=== PATIENT | male | born 1955 | race Caucasian/White ===

== ENCOUNTER 2023-10-22 08:01 | Outpatient (OUT) | payer MEDICARE, OTHER, SELFPAY ==
--- NOTE | 2023-10-22 08:28 | XR_ITS ---
The [address] [address] Patient Name: RAFFI CARTAGENA MRN: [id number] date: 1955 Sex: M Assigned Patient Location: LAB Current Patient Location: LAB Accession/Order Number: [id number] Exam Date: 10/22/2023 08:30 Report Date: 10/22/2023 09:05 At the request of: NORY SUH Procedure: XR chest 2V EXAMINATION: XR chest 2V HISTORY: Febrile Illness Acute R50.9 COMPARISON: No relevant comparison available. FINDINGS: LUNGS: Underexpanded lungs suggestive COPD. Small area of mild haziness within right lung base. VASCULATURE: No increased pulmonary vasculature. PLEURA: No pneumothorax, effusion, or pleural thickening. CARDIAC: No cardiomegaly or cardiac silhouette abnormality. MEDIASTINUM: No visible mass or adenopathy. BONES: No fracture or visible bone lesion. OTHER: Negative. XR/XR chest 2V IMPRESSION: 1. Suspect trace amount of right basilar infiltrates. Electronically authenticated by: AUGUSTO MORRISON Date: 10/22/2023 09:05
[2023-10-22 08:54] LABS: Basophils Percent Auto 0.3 % (0.2-2.0); Eosinophils Percent Auto 0.1 % (0.9-7.0); Hematocrit 32.3 % (42.0-54.0); Immature Granulocytes Abs Auto 0.31 10^3/uL (0.00-0.03); Immature Granulocytes Pct Auto 2.3 % (0.0-0.5); Lymphocytes Absolute Auto 0.7 10^3/uL (1.2-3.8); Lymphocytes Percent Auto 5.5 % (20.5-60.0); Mean Corpuscular HGB Conc 34.1 g/dL (29.9-35.2); Mean Corpuscular Hemoglobin 31.4 pg (25.9-34.0); Mean Corpuscular Volume 92.3 fL (80.0-94.0); Mean Platelet Volume 10.5 fL (9.5-13.5); Monocytes Absolute Auto 0.8 10^3/uL (0.3-0.8); Monocytes Percent Auto 5.9 % (1.7-12.0); Neutrophils Absolute Auto 11.3 10^3/uL (1.4-6.5); Neutrophils Percent Auto 85.9 % (43.0-75.0); Platelet Count 168 10^3/uL (150-450); Red Cell Distribution Width 13.4 % (11.0-15.0); White Blood Count 13.2 10^3/uL (4.0-11.0)
[2023-10-22 09:03] LABS: Bilirubin Urine SMALL (NEGATIVE); Blood Urine MODERATE (NEGATIVE); Clarity Urine CLEAR (CLEAR); Color Urine DK. YELLOW (YELLOW); Glucose Urine UA NEGATIVE (NEGATIVE); Ketones Urine NEGATIVE (NEGATIVE); Leukocyte Esterase Urine TRACE (NEGATIVE); Nitrite Urine POSITIVE (NEGATIVE); Protein Urine 100 mg/dL (NEG/TRACE); Specific Gravity Urine >=1.030 (1.005-1.025); pH Urine 5.5 (5.0-9.0)
[2023-10-22 09:18] LABS: Anion Gap 11.9; BUN Creatinine Ratio 17.4; Calcium 8.8 mg/dL (8.5-10.1); Chloride 98 mmol/L (98-107); Estimated GFR (African America 57 (>=60); Estimated GFR (Non-African Ame 47 (>=60); Glucose 141 mg/dL (74-106); Potassium 3.9 mmol/L (3.5-5.1); Sodium 132 mmol/L (136-145)
== END 2023-10-22 08:02 | disposition home or self-care (01) ==
LOC: LAB 08:05
PROVIDERS: PCP Family Medicine; Visit Provider Family Medicine
DX: R50.9 Fever, unspecified (principal)
CPT/HCPCS: 36415; 71046; 80048; 81003; 85025; 87086; 87150; 87186

== ENCOUNTER 2023-11-16 11:11 | Outpatient (OUT) | payer MEDICARE, OTHER, SELFPAY ==
[2023-11-16 11:37] LABS: Basophils Absolute Auto 0.1 10^3/uL (0.0-0.1); Basophils Percent Auto 0.9 % (0.2-2.0); Eosinophils Absolute Auto 0.2 10^3/uL (0.0-0.7); Eosinophils Percent Auto 2.3 % (0.9-7.0); Hematocrit 40.6 % (42.0-54.0); Hemoglobin 13.2 g/dL (14.0-18.0); Immature Granulocytes Abs Auto 0.02 10^3/uL (0.00-0.03); Immature Granulocytes Pct Auto 0.3 % (0.0-0.5); Lymphocytes Percent Auto 30.9 % (20.5-60.0); Mean Corpuscular HGB Conc 32.5 g/dL (29.9-35.2); Mean Corpuscular Hemoglobin 30.7 pg (25.9-34.0); Mean Corpuscular Volume 94.4 fL (80.0-94.0); Mean Platelet Volume 9.3 fL (9.5-13.5); Monocytes Absolute Auto 0.5 10^3/uL (0.3-0.8); Monocytes Percent Auto 7.5 % (1.7-12.0); Neutrophils Absolute Auto 3.8 10^3/uL (1.4-6.5); Neutrophils Percent Auto 58.1 % (43.0-75.0); Platelet Count 261 10^3/uL (150-450); Red Cell Distribution Width 14.2 % (11.0-15.0); White Blood Count 6.6 10^3/uL (4.0-11.0)
[2023-11-16 12:01] LABS: Bilirubin Urine NEGATIVE (NEGATIVE); Blood Urine NEGATIVE (NEGATIVE); Clarity Urine CLEAR (CLEAR); Color Urine LT. YELLOW (YELLOW); Glucose Urine UA NEGATIVE (NEGATIVE); Ketones Urine NEGATIVE (NEGATIVE); Leukocyte Esterase Urine TRACE (NEGATIVE); Nitrite Urine NEGATIVE (NEGATIVE); Protein Urine NEGATIVE (NEG/TRACE); Specific Gravity Urine <=1.005 (1.005-1.025); Urobilinogen Urine 0.2 EU/dL (0.2-1.0)
[2023-11-16 12:46] LABS: Prostate Specific Antigen Scrn 5.75 ng/mL (<=4.00)
[2023-11-16 12:51] LABS: Alanine Aminotransferase 32 U/L (16-63); Albumin Globulin Ratio 0.6; Albumin Level 3.3 g/dL (3.4-5.0); Alkaline Phosphatase 98 U/L (46-116); Anion Gap 11.7; Aspartate Amino Transferase 22 U/L (15-37); BUN Creatinine Ratio 20.4; Bilirubin Total 0.8 mg/dL (0.2-1.0); Carbon Dioxide 27.7 mmol/L (21.0-32.0); Chloride 101 mmol/L (98-107); Estimated GFR (African America >60 (>=60); Estimated GFR (Non-African Ame >60 (>=60); Globulin 5.1 g/dL; Glucose 86 mg/dL (74-106); Potassium 4.4 mmol/L (3.5-5.1); Sodium 136 mmol/L (136-145); Thyroid Stimulating Hormone 4.543 uIU/mL (0.358-3.740); Total Protein 8.4 g/dL (6.4-8.2)
== END 2023-11-16 11:12 | disposition home or self-care (01) ==
LOC: LAB 11:12
PROVIDERS: PCP Family Medicine; Visit Provider Family Medicine
DX: D64.9 Anemia, unspecified (principal); R63.4 Abnormal weight loss; Z12.5 Encounter for screening for malignant neoplasm of prostate; E86.0 Dehydration; N39.0 Urinary tract infection, site not specified
CPT/HCPCS: 36415; 80053; 81003; 82607; 82728; 82746; 84443; 85025; G0103

== ENCOUNTER 2023-11-19 07:35 | Outpatient (OUT) | payer MEDICARE, OTHER, SELFPAY ==
--- OUTSIDE RECORDS SUMMARY | 2023-11-19 07:37 | XMS_ITS | CCD ---
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 Role Phone DR JAMESON MACIAS Admitting Unavailable MACIAS, DR MCKEON Attending Unavailable SUH, DR LISSETTE Camacho Primary Care Unavailable MACIAS, DR MCKEON Consulting Unavailable SUH, DR LISSETTE Camacho Admitting Unavailable [facility], DR LISSETTE Camacho Attending Unavailable SU[facility], DR LISSETTE Camacho Primary Care Unavailable SUH, DR LISSETTE Camacho Consulting Unavailable SUH, DR LISSETTE Camacho Admitting Unavailable SU[facility], DR LISSETTE Camacho Attending Unavailable SU[facility], DR LISSETTE Camacho Referring Unavailable SUH, DR LISSETTE Camacho Primary Care Unavailable GALLANT, DR EUGENIA Prado Consulting Unavailable SUH, DR LISSETTE Camacho Consulting Unavailable LISSETTE [facility] Primary Care Physician [phone] MD Lissette Suh Primary Care Provider MD Jameson Macias Attending Provider Lissette Suh Unavailable [facility] Unavailable Jameson MACIAS Attending Unavailable Jameson MACIAS Attending Unavailable Jameson MACIAS Attending Unavailable Jameson MACIAS Admitting Unavailable Jameson MACIAS Referring Unavailable Jameson MACIAS Attending Unavailable Allergies Allergy Classification Reported Allergen(s) Allergy Type Date of Onset Reaction(s) Facility (5 sources) patient allergy list reviewed by nurse or physicia Propensity to adverse reactions 3 Comment:Done [employer] Other (5 sources) Allergies Reconciled Propensity to adverse reactions Unknown [employer] Other Medications Current Medications Medication Drug Class(es) Dates Sig (Normalized) Sig (Original) acetaminophen 325 mg / HYDROcodone bitartrate 7.5 mg oral tablet (7 sources) Opioid Agonist Start: 11-19-2022 take 1 tablet by mouth once, then take 1 tablet by mouth every hour Dequincy 325 mg-7.5 mg oral tablet 1 tab(s), Oral, Once, 1 tab(s), Refill(s) 0, Take 1 hour prior to procedure. Don't drive or operate machinery while taking this medication. Have a feedmobile driver to and from procedure., [facility] #[id number], 175, cm, 05/01/22 10:32:00 EDT, Height/Length Dosing,... Start Date: 11/19/22 Status: Ordered Start: 04-08-2022 take 1 tablet by tatum th once, then take 1 tablet by mouth every hour Dequincy 325 mg-7.5 mg oral tablet 1 tab(s), Oral, Once, 1 tab(s), Refill(s) 0, Take 1 hour prior to procedure. Don't drive or operate machinery while taking., [facility] #[id number], 175, cm, 01/19/22 9:56:00 EDT, Height/Length Dosing, 55.5, kg, 01/19/22 9:56:00 EDT, Weight Dosing Start Date: 04/08/22 Status: Ordered take 1 tablet by tatum th every hour HYDROcodone-Acetaminophen 7.5-325 MG take 1 tablet by mouth 1 hour prior to procedure DO NOT DRIVE WHILE TAKING MEDICATION Oral for 1 Days Not-Taking acetic acid 20 mg/ml / hydrocortisone 10 mg/ml otic solution (1 source) Corticosteroid Start: 07-16-2023 Hydrocortisone-Acetic Acid 1-2 % 5 drops into affected ear left ear Three times a day for 7 days Jun, Active ciprofloxacin 500 mg oral tablet (10 sources) Quinolone Antimicrobial Start: 11-19-2022 End: 11-26-2022 Cipro 500 mg Tab 500 mg = 1 tab(s), Oral, q12hr, Start 3 days prior to procedure, X 7 day(s), # 14 tab(s), Refills(s) 0, Pharmacy: [facility][id number], 175, cm, 05/01/22 10:32:00 EDT, Height/Length Dosing, 55.5, kg, 05/01/22 10:32:00 EDT, Weight Dosing Start Date: 11/19/22 Stop Date: 11/26/22 Status: Ordered Start: 04-08-2022 End: 04-15-2022 Cipro 500 mg Tab 500 mg = 1 tab(s), Oral, q12hr, Start 3 days prior to procedure, X 7 day(s), # 14 tab(s), Refills(s) 0, Pharmacy: [facility] #[id number], 175, cm, 01/19/22 9:56:00 EDT, Height/Length Dosing, 55.5, kg, 01/19/22 9:56:00 EDT, Weight Dosing Start Date: 04/08/22 Stop Date: 04/15/22 Status: Ordered take 1 tablet by tatum th every twelve hours Ciprofloxacin HCl 250 MG 1 tablet Orally every 12 hrs for 5 days Active tadalafil 5 mg oral tablet (20 sources) Phosphodiesterase 5 Inhibitor Start: 01-19-2022 take 1 tablet by mouth once daily tadalafil 5 mg oral tablet 5 mg = 1 tab(s), Oral, Daily, # 90 tab(s), Refills(s) 3, Pharmacy: [facility] [facility], 175, cm, 01/19/22 9:56:00 EDT, Height/Length Dosing, 55.5, kg, 01/19/22 9:56:00 EDT, Weight Dosing Start Date: 01/19/22 Status: Ordered tamsulosin hydrochloride 0.4 mg oral capsule (8 sources) alpha-Adrenergic Traci Start: 12-22-2021 End: 11-18-2023 take 1 capsule by mouth once daily Flomax 0.4 mg Cap 0.4 mg = 1 cap(s), Oral, Daily, X 30 day(s), # 30 cap(s), Refills(s) 11, Pharmacy: [facility] #[id number], 172, cm, 11/23/22 10:42:00 EST, Height/Length Dosing, 55, kg, 11/23/22 10:42:00 EST, Weight Dosing Start Date: 11/23/22 Stop Date: 11/18/23 Status: Ordered Completed/Discontinued Medications Medication Drug Class(es) Dates Sig (Normalized) Sig (Original) sulfamethoxazole 800 mg / trimethoprim 160 mg oral tablet (4 sources) Dihydrofolate Reductase Inhibitor Antibacterial, Sulfonamide Antimicrobial Sulfamethoxazole- Trimethoprim 800-160 MG take 1 tablet by mouth twice a day for 3 WEEKS Oral for 21 Days Not-Taking Problems Active Problems Problem Classification Problem Date Documented Date Episodic/Chronic Cancer of prostate (2 sources) Carcinoma in situ of prostate; Translations: [Carcinoma in situ of prostate] Onset: 05-01-2022 Chronic Fever of unknown origin (1 source) Fever, unspecified Episodic Hyperplasia of prostate (20 sources) Benign prostatic hyperplasia without lower urinary tract symptoms; Translations: [Benign prostatic hypertrophy without outflow obstruction] Onset: 10-15-2015 Chronic Inflammatory conditions of male genital organs (6 sources) Prostatitis; Translations: [Inflammatory disease of prostate, unspecified] Onset: 01-19-2022 Episodic Miscellaneous mental health disorders (5 sources) Psychosexual dysfunction associated with inhibited sexual excitement; Translations: [Psychosexual dysfunction with inhibited sexual excitement] Onset: 02-19-2015 Chronic Other connective tissue disease (13 sources) Pain in right foot; Translations: [Pain in right foot] Episodic Other ear and sense organ disorders (1 source) Otitis externa in other diseases classified elsewhere, left ear Chronic Other ear and sense organ disorders (1 source) Impacted cerumen, bilateral Episodic Other ear and sense organ disorders (1 source) Impacted cerumen, right ear Episodic Other ear and sense organ disorders (1 source) Impacted cerumen, left ear Episodic Other male genital disorders (15 sources) Male erectile dysfunction, unspecified; Translations: [Erectile dysfunction] Onset: 01-19-2022 Chronic Other male genital disorders (2 sources) Prostatic intraepithelial neoplasia 05-01-2022 Episodic Other screening for suspected conditions (not mental disorders or infectious disease) (20 sources) Encounter for screening for malignant neoplasm of prostate; Translations: [Raised prostate specific antigen] Onset: 11-12-2021 Episodic Retinal detachments; defects; vascular occlusion; and retinopathy (5 sources) Degenerative disorder of macula ; Translations: [Unspecified macular degeneration] Onset: 06-03-2017 Chronic Spondylosis; intervertebral disc disorders; other back problems (18 sources) Degeneration of lumbosacral intervertebral disc; Translations: [Other intervertebral disc degeneration, lumbosacral region] Onset: 05-04-2019 Chronic Spondylosis; intervertebral disc disorders; other back problems (20 sources) Lumbar radiculopathy; Translations: [Radiculopathy, lumbar region] Onset: 09-05-2015 Episodic Substance-related disorders (9 sources) Smoker; Translations: [Nicotine dependence] Onset: 05-04-2019 12-22-2021 Chronic Comment on above: Added secondary to d ocumentation in Social History. Past or Other Problems Problem Classification Problem Date Documented Da te Episodic/Chronic Immunizations and screening for infectious disease (5 sources) Vaccination given; Translations: [Encounter for immunization] Onset: 07-23-2014 Episodic Other connective tissue disease (4 sources) Pain in right foot; Translations: [PAIN IN RIGHT FOOT] Onset: 05-28-2021 Episodic Other ear and sense organ disorders (5 sources) Impacted cerumen; Translations: [Impacted cerumen, unspecified ear] Onset: 07-10-2013 Episodic Other non-traumatic joint disorders (5 sources) Shoulder joint pain; Translations: [Pain in right shoulder] Onset: 01-28-2016 Episodic Other nutritional; endocrine; and metabolic disorders (5 sources) Body mass index less than 20; Translations: [Body mass index (BMI) 19.9 or less, adult] Onset: 05-04-2019 Episodic Other nutritional; endocrine; and metabolic disorders (5 sources) Underweight; Translations: [Underweight] Onset: 05-04-2019 Episodic Results Test Name Value Interpretation Reference Range Facility [facility] 0 10-28-2023 Intra[facility] Documents [id number] Normal [facility] Patient Educationon 12-19-19 23 Patient Education Urology Benign Prostatic Hyperplasia Benign prostatic hyperplasia (BPH) is an enlarged prostate gland that is caused by the normal aging process and not by cancer. The prostate is a walnut-sized gland that is involved in the production of semen. It is located in front of the rectum and below the bladder. The bladder stores urine and the urethra is the tube that carries the urine out of the body. The prostate may get bigger as a man gets older. An enlarged prostate can press on the urethra. This can make it harder to pass urine. The build-up of urine in the bladder can cause infection. Back pressure and infection may progress to bladder damage and kidney (renal) failure. What are the causes? This condition is part of a normal aging process. However, not all men develop problems from this condition. If the prostate enlarges away from the urethra, urine flow will not be blocked. If it enlarges toward the urethra and compresses it, there will be problems passing urine. What increases the risk? This condition is more likely to develop in men over the age of 50 years. What are the signs or symptoms? Symptoms of this condition include: ? Getting up often during the night to urinate. ? Needing to urinate frequently during the day. ? Difficulty starting urine flow. ? Decrease in size and strength of your urine stream. ? Leaking (dribbling) after urinating. ? Inability to pass urine. This needs immediate treatment. ? Inability to completely empty your bladder. ? Pain when you pass urine. This is more common if there is also an infection. ? Urinary tract infection (UTI). How is this diagnosed? This condition is diagnosed based on your medical history, a physical exam, and your symptoms. Tests will also be done, such as: ? A post-void bladder scan. This measures any amount of urine that may remain in your bladder after you finish urinating. ? A digital rectal exam. In a rectal exam, your health care provider checks your prostate by putting a lubricated, gloved finger into your rectum to feel the back of your prostate gland. This exam detects the size of your gland and any abnormal lumps or growths. ? An exam of your urine (urinalysis). ? A prostate specific antigen (PSA) screening. This is a blood test used to screen for prostate cancer. ? An ultrasound. This test uses sound waves to electronically produce a picture of your prostate gland. Your health care provider may refer you to a specialist in kidney and prostate diseases (urologist). How is this treated? Once symptoms begin, your health care provider will monitor your condition (active surveillance or watchful waiting). Treatment for this condition will depend on the severity of your condition. Treatment may include: ? Observation and yearly exams. This may be the only treatment needed if your condition and symptoms are mild. ? Medicines to relieve your symptoms, including: ? Medicines to shrink the prostate. ? Medicines to relax the muscle of the prostate. ? Surgery in severe cases. Surgery may include: ? Prostatectomy. In this procedure, the prostate tissue is removed completely through an open incision or with a laparoscope or robotics. ? Transurethral resection of the prostate (TURP). In this procedure, a tool is inserted through the opening at the tip of the penis (urethra). It is used to cut away tissue of the inner core of the prostate. The pieces are removed through the same opening of the penis. This removes the blockage. ? Transurethral incision (TUIP). In this procedure, small cuts are made in the prostate. This lessens the prostate's pressure on the urethra. ? Transurethral microwave thermotherapy (TUMT). This procedure uses microwaves to create heat. The heat destroys and removes a small amount of prostate tissue. ? Transurethral needle ablation (TUNA). This procedure uses radio frequencies to destroy and remove a small amount of prostate tissue. ? Interstitial laser coagulation (ILC). This procedure uses a laser to destroy and remove a small amount of prostate tissue. ? Transurethral electrovaporization (TUVP). This procedure uses electrodes to destroy and remove a small amount of prostate tissue. ? Prostatic urethral lift. This procedure inserts an implant to push the lobes of the prostate away from the urethra. Follow these instructions at home: ? Take avxl-iug-kdyuwak and prescription medicines only as told by your health care provider. ? Monitor your symptoms for any changes. Contact your health care provider with any changes. ? Avoid drinking large amounts of liquid before going to bed or out in public. ? Avoid or reduce how much caffeine or alcohol you drink. ? Give yourself time when you urinate. ? Keep all follow-up visits as told by your health care provider. This is important. Contact a health care provider if: ? You have unexplained back pain. ? Your symptoms do not get better with treatment. ? You d (more content not included)... Normal [facility] Urology Office/Clinic Noteon 12-18-2022 Urology Office/Clinic Note Chief Complaint S/P TRUS/Bx HPI Staff S/P TRUS/Bx done 12/01/22 due to PIN III. Pt is here today to review pathology report. *Restarted Flomax 0.4mg QD therapy at time of last encounter. (stopped due to running out) Also taking Tadalafil 5mg PRN therapy. Pt denies any complaints urinating at this time. History of Present Illness Tests reviewed: Reviewed pathology report. I have reviewed the previous health record information and history for this patient from Dr. Macias. I have reviewed and verified the staff HPI to be accurate for this encounter. There have been no associated fever, chills, flank pain, or blood in the urine. Denies any urinary infections since last encounter. Review of Systems PHQ Score Initial Depression Screen Score: 0 ROS - Provider Constitutional: denies weight loss, denies hot flashes. Eyes: denies eye problems. Gastrointestinal: denies nausea, denies vomiting. Cardiovascular: denies chest pain or angina. Integumentary: no dryness Musculoskeletal: denies musculoskeletal symptoms. ENMT: denies otolaryngeal symptoms. Respiratory: no shortness of breath. Heme/Lymph: denies easy bleeding tendency, denies easy bruising tendency. Psychiatric: no confusion, no anxiety. Genitourinary: denies dysuria, denies hematuria, denies discharge, denies urinary frequency, denies urinary hesitancy, denies nocturia, denies incontinence, denies genital sores, denies decreased libido, and denies erectile dysfunction. Physical Exam Vitals & Measurements HR: 68(Peripheral) RR: 16 BP: 128/74 HT: 68 in HT: 172 cm WT: 55 kg WT: 121 lb BMI: 18.59 General Appearance: alert, no distress, well nourished, well developed male. Genitourinary: normal scrotum, normal testes, normal urethra, normal epididymis, normal vas deferens/spermatic cord. Flank Pain: none. Bladder: nonpalpable. Assessment/Plan 1. 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 S/p TRUS/bx 04/14/22. Path report shows SIXTO in the right lateral base. S/p TRUS/bx 12/01/22. Pathology neg for malignancy. Patchy chronic inflammation left lateral apex and left mid. The pathology report was reviewed with the patient in detail today. There is no evidence of malignancy and no further evaluation of the tissue removed is planned. All questions were answered and the report discussed in terms that the patient could understand. -Follow up in 1 year w/ PSA. All questions/concerns were discussed. Pt. to call the office if heencounters any issues prior. Pt. acknowledges understanding. 2. BPH (benign prostatic hyperplasia) (N40.0: Benign prostatic hyperplasia without lower urinary tract symptoms) No urine sample provided today. Patient continues Tamsulosin 0.4mg daily. Voices no concerns with urination following biopsy. 3. ED (erectile dysfunction) (N52.9: Male erectile dysfunction, unspecified) Tadalafil 5 mg PRN. Call for refills when needed. Follow-up With When Contact Information LAKISHA HOUSTON, Jameson Kay, URL [address] [place], [place] [id number]- Additional Instructions: 1 year w/ PSA Patient Education Benign Prostatic Hyperplasia I, Isela Zaldivar, personally scribed for Dr. Macias on 12/18/2022 12:35:28. . Documentation recorded by the scribe, Isela Zaldivar, accurately reflects the services(s) I performed and decisions made by me. Authenticated by Dr. Macias on 12/18/2022 12:38:20. Problem List/Past Medical History Ongoing BPH (benign prostatic hyperplasia) ED (erectile dysfunction) Elevated PSA PIN III (prostatic intraepithelial neoplasia III) Prostatitis Smoker Historical No qualifying data Procedure/Surgical History Transrectal biopsy of prostate using ultrasound (US) guidance (12/01/2022), TRUS (transrectal ultrasound) guided cryoablation of prostate (04/14/2022), Bilateral inguinal hernia repair (07/10/2013), Colonoscopy (2011). Medications Flomax 0.4 mg Cap, 0.4 mg= 1 cap(s), Oral, Daily, 11 refills tadalafil 5 mg oral tablet, 5 mg= 1 tab(s), Oral, Daily, 3 refills Allergies No Known Allergies Social History Tobacco 10 or more cigarettes (1/2 pack or more)/day in last 30 days Tobacco Use:. Cigarettes, 12/18/2022 Family History Cancer: Mother and Brother. Heart disease: Mother, Father and Brother. Immunizations Vaccine Date Status SARS-CoV-2 (COVID-19) mRNA BNT-162b2 vax 09/09/2021 Recorded SARS-CoV-2 (COVID-19) mRNA BNT-162b2 vax 01/21/2021 Recorded SARS-CoV-2 (COVID-19) mRNA BNT-162b2 vax 12/31/2020 Recorded Normal [place] Comment on above: Result Comment: Elec tronically Signed By: Jameson MACIAS MD\.br\Date and Time Signed: 12/18/22 12:38 EDT\.br\Electronically Co-Signed By: Isela Zaldivar.br\Date and Time Co-Signed: 12/18/22 12:35 EDT Coding Summary.on 12-11-2022 Coding Summary. CD:[id number] Ww +PGhlYWQ+UR8SGMCxL15ck GYyjD9iV1BAFUeFMacoPUD MNGcIXzVnbyNoEG0kvHUvC XJu IC8+GF5hUHDqBggykWBwi0 Y9tBT2T71hdy9dHZcqdAA8 WVMfRyAscgmrz2dwiVi7RD cuNmluOyBt CKKptP90ETT7iR78Em54wT OkqKSng2bubEi3RmSsTXSk BON0dQkoQAzpf4JsMYLsA7 6rzUTkx1P7 DXNzdBfvqJUmYwYzmRG0vG 6gVSstxlrsj2hujfclUhz1 yp77xYKne2D0xWT6G5Scgr K7ROMmtFYa PennmFRJyQ5ljfrmw8ulbl jcPeDlEUIjYHl8ETv6ONTm dModMlQvED11ZWE4CXCvig XlH3BqXYNp uNteNuE3x1W0Hn2DM9JITz fmX5KPGHXIMCttjRM+PC90 es26Y6XdChhrPcn4XYCgFY I4tNG7nP6j GNBeBNjun2C5qFC9Z9Bxuo Wntu8bx4yjWOUvAJkwC70l ySTrq2F3QSZwyCJ1NBGlpG nvMuHyvW61 Oyc+IAXpyDcye1AlDhtal8 zyy3dllEl7IyohNUNghqPq bAjjXSW5y9PrOz2oFIOdoJ Y4wAZ5cH3w DbPyNrJ7KTtqB137TsOqfI DsPfleL85pP8KxjMN+PHRy Mcx9HRLxaDvfJP8mB8LlTB RpbmctbGVm iRoiKW8jHGGaiobjTGSwtH 4jPCSoK5l3GsFwQzX3UCht D7JxUXLdgniaVp42jS4iLp TuBeD9LWvb C6WgwxH2RDCfvKVoZZrhVB P7M40iu9Q1HKOtKTZbCOO6 aIO9yP5knBlsqeftcVHrmU sgdmVydGlj CBnqQBlnN879AWRwmBeyVf NvZGluZyBEYXRlOiAgMDMv MjQvMjAyMzwvdGQ+PHRkIH D4cMmmWPLf oZQxDAiwRw1syXrauRjqWL 9lJCRmecajEOKreK4jEAZd lBPipGotDC0mPQPbadcsy5 40YoCwROM4 GZSkcAZsW3JorC6dXkAhWP GvGIVcY5LxlMVwDUqqQ417 VKdbJlU1XJVcrgZnP9RiAZ FsaWduOiB0 c5U0Bv6Sz4FqohmiA2UkkB TnMiUfJpjdTLo5X4CcBgov dHI+BA95LSGjHX97SOu5XZ W3zKbgFViz WJQbP3LwzN2cMoNmNSMmLE RkOyc+PHRhYmxlIHdpZHRo REjsCEDcJpTfxOxxSD3wIb 9yZGVyLWNv uGgqpKIbCbSmj4frTXHqIT xnTI0ngLkfY1RfgCV9MQRh w1u8Rh09I95vW2KwgEL+PG NuvJA6hLG1 aZ1jInPdIpS1JVppD327Ur RobQJcTmume9dkr4atsEy1 RwL8SVWjxxPexWgcPXI7a5 OdIb37N09j IHdpZHRoPSIxNSUiIHZhbG myfs5dfD7jKc9+PGNvbCB3 vXH5kO9zSiByMkL4HAzwM9 49InRvcCIv Hrwll9qxp0imvZu7OiBvHE XnbaZtjGruFFP1v6UjIp18 T8PxyToxr5OhMqj0er42yL Zcn1F4zVB2 M6OlIATehvpzaJZrmItfFL 6wIICprsjsKKDvkU3cTMUa V3z9SvFoIyY6GFfxS8Neuc Y9XKQveXNx RODptRGRkY6hznchg8jedk sgHwVsHAOdYGc7VJn5HYRh hAwsZkLuASE9YkT6ZEB2kX OdcR3ngOly apldsU2fBcg+HZV4tWOphL FSBO7mUvguvAG+PHRkIHN0 bHpeHPxqYMOvrC7rPHApL3 y4PjAvZyF1 LRnoM1NaxeL6RKRhbHOlAA UmePPRlL7lsnarr7wfyksr DjUsNIPdXYz3IIz8JHWcmA duOiBsZWZ0 UeH8GXP4zIHcyX1peWyoir wyvW5yBdl+QmlydGggRGF0 NWg2F2HmIgx6EZVwjBdqPO 0ncGFkZGlu Li5xvAmobAcgFM8eVNJbxe fcl089BrJbg3ddASLtwRCt RKccAFR2M74uw0I6DDQlXS ZpDBM9lXP7 pE4umFigygfldYHuoLsmrx QzkUqaNBmnTIrdR667HMMa lOhtUmQzGFo7D0HwBkl4XV RkgFwaHG7y uYZqQKzeGm7elQffnEsuFO 5nSMRgsgndn846VcXct4ph DDUmcSInNPqnKWB5M60fi1 M2GRDvXVAf HYF9wSF5mX6maQqvbqfdsZ VmdDsgdmVydGljYWwtYWxp Z097MHZfaOscPiHcoJd3E7 ZsAur2PHMo zAzgIT0ccUArEQzfPs4pmK xfqUnqGF9xECUquzrjm501 LrMer0etDUQspOZfNQxrET O6W11oz8D2 AHBdBJHvMQE1wOD2iL0wjG lnbjogbGVmdDsgdmVydGlj WIseMUhoP603CEVdnXywAx BhdGllbnQg CVdbBUy9K7CaDyazyPO+PC 47BHQqYZ50qTEivAClz7hw wLj7NpZfEGJxLOJ4nFqaUU snr1KyLNLv Z00lnJNjg1K8JWXdhKtvkE TgSzMmpWW7zE7gWQkrcsjv c8dcjckvMheyo0swbz03bH 40L12hMEfu ZHRoPSIzMCUiIHZhbGlnbj 2eaA5rHf1+VMChdHC4uXF2 zU4sUXHvNhR8SHisY814Fy RvcCIvPjxj z6fzr6jnbHh6AaI0OOFavk HfuHosHHH2z1CpVp92N43t IHdpZHRoPSIyMCUiIHZhbG xmaf5moM0s Ii8+DHQkeZQ3xLO8hP4gUv TyUcV5MItxU809RjPayLDb ZfglT97pL6VkrWU+PHRyPj v5EMXxkLmc OD9uqWCqPWcsBc3gFDL6Rb BiEpPxJGirU3UcIKUnesvj ciujcFR1CCIzDSVcqJ01Zf 9udDogMTBw tJXWzS4bfuxqh4etncffUt BpJUXrCEj3MYx3MJVqeZlx LwLpIWH6DwG2HGV7kEYuxX 1hbGlnbjog jP5hU3ZsXUGmaucnPa95nL 9mYoEbOfG3JOwcTtz+V0VB FeQTARDUOJDTTF40WK42vT Scz2X1xVZ3 W2BoVAAjplqguxfsuEP9AE VnPJIzqG76jQMaCPnuQa1y q7I1e088GYWqGVBowS14My 9udDogMTBw sPPOkP5iinsex9fhnpoyAx TxLXWxJAi9BBn3VZIxbIhp GgCdLXX1EzD5ZJM7mEExnJ 1hbGlnbjog vF1cJay+SWrhEojrSSc4AU wvdGQ+JWMfEZW3uEqiTAnt HXYufL9bZHXwQ6s8YlAsRi T2MVzwD4Nq QVDuihssOj15pG7nBkBqJj J8UKxrC5EdyrC4YGQeyNNw QOyeNHE8S98ag4Q4EFHvHS EvYVD4kAY0 zJ1tpVvhsykpdIPujOgjii OgdLmuYTjgOCswZ557UPQz aGvlNqO1URxuXMArCR41IV 32yTGba4Q4 eGS0T7ZmCXIxyicvkqgbxK N6NBTkISQayJ93kEXkZWay Gs2hb8U6o644PGLxEIKoyY 98Rf1znZhv EGRmmWZAiO9jmogkz9rgno ssIbHcMCDfXBi4XDw8CFNi wRwoQuFhTGM2AcD8XCI6kH CfvU5ctJbl pbfjvU4kBcu+TWFsZTwvdG Q+UGZvPZC2uDqzJLrxNUAw mP3pKGZxD5t9UaVyAxF8UG svF2GcKHNh xasxAq99tZ1tXxJwDzL6ZE lgR5ZdiqJ4VXUbgWXkAGpy FMK3O97og2R0HMJdDYGyKD O8xLT1fH3k bGlnbjogbGVmdDsgdmVydG jtFFvnUTemZ023XPTgnZfs Qg69xKKadRbawzU2F6VqBl wvdHI+PC90 OXKmMX85mRGnbFIke1hmrD a1IxLdVTQmCHR2oXkpQFml q3GrMDZiP34rhOYrn4X3JZ NvbGxhcHNl SgJppVG7dH3oKUgpjonod6 zypndxOhwns7hrkw56lE22 V15kMFhqCSBdFXNqQAXwJD HyzRrudn5a eJ1hUg4+JIUxpWK8eQH5uN 6rBoJnHsB9TXayH859CaCc tJDzBumsp4zdm4msdEw4Ea IwJSIgdmFs wNxvYBJ7w7RcDa64T23vUB dpZHRoPSIyMCUiIHZhbGln uk1uyS7kZy2+NF1vx9ebby 79sD96kQM+ BRClHMC5mCrmTNagCNRpvJ 3pNInyItE1ZIJmNlVijG75 sWUhJJmiGj3ikVtzuTaiUV 4wNTBpbjtm m300VxSdp5gmPSQpeKIuRG quUIQ6E26iw0C1MGEmQKUr PWP3wIV1gU2wwLtstfxnpY VmdDsgdmVy zYoeAKfbAQvzF652XKMckB skHaOsqEFsJ8ubxlVSYM8s OjwvdGQ+VVUwMZY2iPafLS uoRORuyL6s WJSjS7j1WmRePaU6SSrjJ4 AbntY4ERWyyQVzJGJhcWFS eG8kfluom9akckgsOfUoWM WlDDo7YPg7 MVWuuPtjQpNzSZS4FvP9UN C7sILhzN7rwDmrgawfzK6v Oyc+RklOOjwvdGQ+PHRkIH J4sAqbAAbc DCGslN5dFXStI2e8EiLyFr Y3FHbxH6TgywC5WLZpnBUq ZJWbdAPJlB6tcxqks3hlgd ogIzAwMDAw NBz6RHh2QCVyzYfdDtXmGG V5JjA3CPS4jHGljL3qqBbo woafiN6cWek+TVJOOjwvdG Q+PHRkIHN0 xWozZLpbWTEltG0lTZLeV5 r4IsIcGyA0TKpoP6UafyY1 WUFhnSTqRFWjaSUJjD3xpc iiw6ftzzfz XxPbZYDhSGl2RCw6KRSgoA nnShHdSNW0EkP0MBY0ySMf lT7hcKdxpsfpfD2uChu+UG Y1QHC7UR09 LG79L1UhZcnqyLTaqCN+PH RhYmxlIHdpZHRoPScxMDAl StMskGtnBQ4zYw4vZKZnPD NvbGxhcHNl QqYut0ak (more content not included)... Normal [facility] Prostate [facility] ([facility]) on 12-10-2022 Prostate Histology Diagnosis Info Invalid Interpretation Code [facility] Comment on above: Result Comment: A:Pr ostate,Left Lateral Base:Needle Biopsy Interpretation - - Benign prostatic tissue. MicroScopic Description - B:Prostate,Left Lateral Mid:Needle Biopsy Interpretation - - Benign prostatic tissue. MicroScopic Description - C:Prostate,Left Lateral Anson:Needle Biopsy Interpretation - - Benign prostatic tissue with patchy chronic inflammation. MicroScopic Description - D:Prostate,Left Base:Needle Biopsy Interpretation - - Benign prostatic tissue. MicroScopic Description - E:Prostate,Left Mid:Needle Biopsy Interpretation - - Benign prostatic tissue with patchy chronic inflammation. MicroScopic Description - F:Prostate,Left Anson:Needle Biopsy Interpretation - - Benign prostatic tissue (see comment). MicroScopic Description - G:Prostate,Right Base:Needle Biopsy Interpretation - - Benign prostatic tissue. MicroScopic Description - H:Prostate,Right Mid:Needle Biopsy Interpretation - - Benign prostatic tissue. MicroScopic Description - I:Prostate,Right Anson:Needle Biopsy Interpretation - - Benign prostatic tissue (see comment). MicroScopic Description - J:Prostate,Right Lateral Base:Needle Biopsy Interpretation - - Benign prostatic tissue (see comment). MicroScopic Description - K:Prostate,Right Lateral Mid:Needle Biopsy Interpretation - - Benign prostatic tissue. MicroScopic Description - L:Prostate,Right Lateral Anson:Needle Biopsy Interpretation - - Benign prostatic tissue. MicroScopic Description - Gross Description Site ID:A color varghese-white fixative Formalin cores 1 units cm Site ID:B color varghese-white fixative Formalin cores 1 units cm Site ID:C color varghese-white fixative Formalin cores 1 units cm Site ID:D color varghese-white fixative Formalin cores 1 units cm Site ID:E color varghese-white fixative Formalin cores 1 units cm Site ID:F color varghese-white fixative Formalin cores 1 units cm Site ID:G color varghese-white fixative Formalin cores 2 units cm 1.9 ---> stringy Site ID:H color varghese-white fixative Formalin cores 1 units cm Site ID:I color varghese-white fixative Formalin cores 1 units cm Site ID:J color varghese-white fixative Formalin cores 3 units cm 0.7 ---> stringy Site ID:K color varghese-white fixative Formalin cores 1 units cm Site ID:L color varghese-white fixative Formalin cores 1 units cm F, I and J: Immunostain HMW cytokeratins /p63/ P504S (PIN4) reviewed, supporting the rendered diagnosis. Electronically signed by : on: 12/10/2022 15:47:17 Performed By: #### 1 [id number] ####[facility] [address] [place] [address] Consent for Procedure/Surger yon 12-01-2022 Consent for Procedure/Surgery [id number] 0CD:127 [facility] Consent for Treatmenton 11-18 Consent for Treatment [id number] 0CD:127 Normal [facility] IntraOperative Documentson 0 12-01-2022 IntraOperative Documents [id number] 0CD:127 Normal [facility] Main OR Intraoperative Recor don 12-01-2022 Main OR Intraoperative Record IntraOp Document Type FTURO Summary Primary Physician: Jameson MACIAS MD Finalized Date/Time: 12/01/22 09:13:32 Pt. Name: TIFFANIE MATHEW D.O.B./Sex: 1955 Male Med Rec #: [id number] Physician: Jameson MACIAS MD Financial #: [id number] Pt. Type: O Room/Bed: / Admit/Disch: 12/01/22 07:42:27 - Institution: Case Times FTURO Entry 1 Patient Times In Room 12/01/22 08:40:00 Out Room 12/01/22 09:05:00 Procedure Times Start 12/01/22 08:45:00 Stop 12/01/22 08:57:00 Anesthesia Times Last Modified By: Darien ARGUETA, MICHELLE, Cathy 12/01/22 09:00:50 Case Attendance FTURO Entry 1 Entry 2 Entry 3 Case Attendee LAKISHA HOUSTON, Jameson Ledezma RN, CNOR, Aranza Baeza Role Performed Surgeon - Primary Auto Body Service Mechanic - Primary Scrub - Primary Time In 12/01/22 08:40:00 12/01/22 08:40:00 12/01/22 08:40:00 Time Out 12/01/22 09:05:00 12/01/22 09:05:00 12/01/22 09:05:00 Procedure PROSTATE TRANSRECTAL PROSTATE TRANSRECTAL PROSTATE TRANSRECTAL ULTRASOUND WITH BIO(.) ULTRASOUND WITH BIO(.) ULTRASOUND WITH BIO(.) Comments Last Modified By: Darien ARGUETA, CNOR, Darien ARGUETA, NABILOR, Darien ARGUETA, NABILOR, Cathy 12/01/22 Cathy 12/01/22 Cathy 12/01/22 09:00:50 09:00:50 09:00:50 Surgical Procedures FTURO Entry 1 Procedure Description Procedure PROSTATE TRANSRECTAL Modifiers . ULTRASOUND WITH BIOPSY Surgeon Description PROSTATE TRANSRECTAL ULTRASOUND WITH BIOPSY Primary Procedure Yes Primary Surgeon Jameson MACIAS MD Start 12/01/22 08:45:00 Stop 12/01/22 08:57:00 Anesthesia Type Local Surgical Service Urology Wound Class 2 - Clean-Contaminated Last Modified By: Darien ARGUETA, NABILOR, Cathy 12/01/22 09:00:52 General Case Data FTURO Pre-Care Text: Classifies surgical wound, implements aseptic technique, initiates traffic control Entry 1 Case Information OR URO 1 FT Case Level None Wound Class 2 - Clean-Contaminated Specialty Urology Preop Diagnosis ELEVATED PSA AND SIXTO Postop Same As Preop Yes Postop Diagnosis ELEVATED PSA AND SIXTO Outcomes Met? Yes Last Modified By: MICHELLE Ledezma RN, Ruthann 12/01/22 07:55:17 Post-Care Text: The patient is free from signs and symptoms of infection EU IntraOp - FTURO Pre-Care Text: Implements protective measures prior to operative or invasive procedure, confirms identity before the operative or invasive procedure, verifies operative procedure, surgical site, and laterality Entry 1 EU Perioperative Protocols Procedure(s) PROSTATE TRANSRECTAL Patient Identity Birthday, ID Band ULTRASOUND WITH BIO(.) Verified (select at Check, Patient least 2): Participation Consents / H and P HandP, Surgery/Procedure Operative Site N/A Verified Consent Marking Verified Surgical Site Yes Laterality Verified n/a Verified Procedure Verified Yes Correct Patient Yes Position Verified Availability Equipment, Medication Time Out LAKISHA HOUSTON, Jameson Kay, Verified (If Participants MICHELLE Ledezma RN, Applicable) Aryan Morgan Jessica D Time Out Complete 12/01/22 08:43:00 Allergies Reviewed? Yes Allergies Reviewed Self/Patient With Body Position Lateral, right side up Prep Area none Prep Agents None Skin. Condition Unable to Visualize Additional Tissue Specimens Collected Vitals - EU Blood Pressure 121/78/ Pulse 82 bpm Respirations 16 br/min SPO2 EBL 0 IandO - EU Total Intake 0 mL Total Output 0 mL Outcomes Met? Yes Last Modified By: MICHELLE Ledezma RN, Ruthann 12/01/22 09:01:42 Post-Care Text: The patient is free from signs and symptoms of injury caused by extraneous objects Sign Out FTURO Entry 1 Before Patient Leaves OR Nurse verbally Yes Nurse verbally n/a confirms with the confirms with the team the name of team that the procedure(s) instrument, sponge, recorded and needle counts are correct (or N/A) Nurse verbally Yes Nurse verbally Yes confirms with the confirms with the team how the team whether there specimen is labeled are any equipment (including patient problems to be name), if applicable addressed Sign Out Complete 12/01/22 09:00:00 Last Modified By: MICHELLE Ledezma RN, Ruthann 12/01/22 09:01:01 Case Comments Finalized By: MICHELLE Ledezma RN, Ruthann Document Signatures Signed By: MICHELLE Ledezma RN, Ruthann 12/01/22 09:01 MICHELLE Ledezma RN, Ruthann 12/01/22 09:05 MICHELLE Ledezma RN, Ruthann 12/01/22 09:13 [facility] Main OR Preoperative Recordo n 12-01-2022 Main OR Preoperative Record Holding Area Document Type FTURO Summary Primary Physician: Jameson MACIAS MD Finalized Date/Time: 12/01/22 09:04:17 Pt. Name: TIFFANIE MATHEW Anne/Sex: 1955 Male Med Rec #: [id number] Physician: Jameson MACIAS MD Financial #: [id number] Pt. Type: O Room/Bed: / Admit/Disch: 12/01/22 07:42:27 - Institution: Case Times Holding FTURO Pre-Care Text: Verifies consent for planned procedure, identifies individual values and wishes concerning care, includes family members in perioperative teaching Secures patient's records' belongings, and valuables, maintains patient's dignity and privacy, and maintains patient confidentiality Entry 1 In Holding 12/01/22 07:52:00 Outcomes Met? Yes Last Modified By: Savannah Hollingsworth LPN 12/01/22 07:52:58 Post-Care Text: The patient participates in decisions affecting his or her perioperative plan of care The patient's right to privacy is maintained Surgery Checklist FTURO Entry 1 Patient Birthday, Patient Procedure History and Physical, Identification: Participation Verification: Surgical Consent, With Patient NPO after Midnight: No Personal Items clothes Comment: Limitations: na Complaints of Pain: No Pain Comment: na Skin Integrity Intact, Dunlap, Warm, & Dry Vitals - EU Blood Pressure 121/78 Pulse 82 bpm Respirations 16 br/min SPO2 99 % RN Reviewed Yes Last Modified By: MICHELLE Ledezma RN, Ruthann 12/01/22 08:52:45 General Comments: temp:36.6 Finalized By: MICHELLE Ledezma RN, Ruthann Document Signatures Signed By: MICHELLE Ledezma RN, Ruthann 12/01/22 08:52 Savannah Hollingsworth LPN 12/01/22 07:57 Savannah Hollingsworth LPN 12/01/22 07:57 MICHELLE Ledezma RN, Ruthann 12/01/22 09:04 [facility] Operative Reporton 3 Operative Report Patient: GELA MATHEW Age: 67 years Sex: Male : 1955 Associated Diagnoses: None Author: Jameson MACIAS MD Procedure Operative Information Details: Date/ Time: 12/01/2022 09:00:00. Pre-Op Dx: Elevated PSA - R97.20, History of SIXTO on last biopsy. Post-Op Dx: Same. Anesthesia Type: Local, Periprostatic Nerve Block. Procedure: Transrectal Ultrasound and Transrectal Ultrasound-Guided Biopsy of the Prostate. Complications: None. Risks/Benefits/Informe d Consent: Surgical risks, benefits, details of the procedure have been explained to the patient, Full informed consent has been obtained. Intraoperative Information Prepped: The patient was brought to the office suite, placed in the modified left lateral Storm position, The patient was draped appropriately, 80 mg Gentamicin IM injection administered. Procedure: Then 2% Xylocaine jelly was used for intrarectal anesthesia, After waiting several minutes, a well lubricated ultrasound probe was introduced per rectum, The prostate was carefully evaluated in the AP and Sagittal views. Volume: 30 CC. Specimens Removed: A total of 14 biopsies were taken. 2 extra biopsies were taken from the area of interest on the right lateral base. all of these samples were sent to pathology.. Devices Implanted: None. Postoperative Information Discharge: The patient tolerated the procedure well and was discharged home in satisfactory condition, The patient was instructed to (Finish antibiotics, Avoid strenuous activity, Go to the emergency room for gross bleeding, fever, or chills). Radiology Report Procedure: Transrectal Ultrasound of the Prostate, Transrectal US guided needle biopsy of the prostate. Narrative: Ultrasound probe is introduced and performed in the longitudinal and transverse plains, The gland measures (41 MM Length, 48 MM Width, 29 MM Depth, with a calculated volume of 30 CC), The prostatic capsule and seminal vesicles appear to be within normal limits, The peripheral zone demonstrates No abnormalities, Rest of the prostate demonstrates No abnormalities, These were sent to pathology for evaluation, 14 biopsies were obtained. Normal [facility] Comment on above: Result Comment: Elec tronically Signed By: Jameson MACIAS MD\.br\Date and Time Signed: 12/01/22 09:02 EDT Patient Educationon 12-02-19 Patient Education Custom Transrectal Ultrasound of the Prostate with US guided biopsy ? Even though there are no visible incisions, multiple prostate biopsies have been taken through the rectum and you need to follow some instructions to minimize the risks of bleeding. ? You may see some blood in your urine and stool for up to 1 week (and blood in the semen for several months) ? Diet -You may resume your normal diet, but you may want to avoid alcohol, carbonated drinks, caffeine, and spicy foods, which may increase the irritation from the surgery. -Drink plenty of water to keep the urine clear. ? Activity -You should limit any physical activity for about 48 hours -No heavy lifting or straining (10 pound limit) -No driving a car and limit long car rides for 2 days -No strenuous exercise -No sexual intercourse until this is discussed with your doctor ? Bowels -Try to keep your bowel movements soft to minimize straining to have a bowel movement. -You may use a stool softener or over the counter laxative if needed -Difficult bowel movement may lead to straining and bleeding from the prostate ? Medications -You may resume your home medications unless instructed otherwise -Hold aspirin, ibuprofen, Coumadin (warfarin) and other blood thinners for about two days or until there is no active bleeding unless otherwise instructed -Finish the antibiotic which you have already started ? Things to watch for which would require an Emergency Room visit or call 911: (this is not a complete list) -Persistent or heavy bleeding or blood clots from the rectum or in the urine -Inability to urinate -Fever over 101.5 degrees Fahrenheit, with or without chills -Severe drug reactions with itching, hives or rash -Tenderness or swelling of the calves, chest pain, or shortness of breath ? Please call the office to arrange for your post-operative appointment in 1-2 weeks [phone] or [phone] Normal [facility] Prostate Histology ([facility]) on 12-01-2022 PH Method of Extraction Needle Biopsy Normal [facility] Comment on above: Performed By: #### 1 [id number] ####[facility] [place] [address] PH Number of Jars 2 Invalid Interpretation Code [facility] Comment on above: Performed By: #### 1 [id number] ####[facility] [address] [place] [address] PH Specimen 1 L Apx Prostate Normal [facility] Comment on above: Performed By: #### 1 [id number] ####[facility] [address] [place] [address] PH Specimen 10 R Lat Bse Prost Normal [facility] Comment on above: Performed By: #### 1 [id number] ####[facility] [address] [place] [address] PH Specimen 11 R Mid Prostate Normal [facility] Comment on above: Performed By: #### 1 [id number] ####[facility] [address] [place] [address] PH Specimen 12 R Lat Mid Prost Normal [facility] Comment on above: Performed By: #### 1 [id number] ####[facility] [address] [place] [address] PH Specimen 2 L Base Prostate Normal [facility] Comment on above: Performed By: #### 1 [id number] ####[facility] [address] [place] [address] PH Specimen 3 L Lat Apx Prost Normal [facility] Comment on above: Performed By: #### 1 [id number] ####[facility] [address] [place] [address] PH Specimen 4 L Lat Bse Prost Normal [facility] Comment on above: Performed By: #### 1 [id number] ####[facility] [address] [place] [address] PH Specimen 5 L Lat Mid Prost Normal [facility] Comment on above: Performed By: #### 1 [id number] ####[facility] [address] [place] [address] PH Specimen 6 L Mid Prostate Normal [facility] Comment on above: Performed By: #### 1 [id number] ####[facility] [address] [place] [address] PH Specimen 7 R Apx Prostate Normal [facility] Comment on above: Performed By: #### 1 [id number] ####[facility] [address] [place] [address] PH Specimen 8 R Base Prostate Normal [facility] Comment on above: Performed By: #### 1 [id number] ####[facility] [address] [place] [address] PH Specimen 9 R Lat Apx Prost Normal [facility] Comment on above: Performed By: #### 1 [id number] ####[facility] [address] [place] [address] PH Type of Service Technical Only Normal [facility] Comment on above: Performed By: #### 1 [id number] ####[facility] [address] [place] [address] Ambulatory Visit Summaryon 0 11-23-2022 Ambulatory Visit Summary TIFFANIE MATHEW :1955 Visit Date:11/23/2022 Ambulatory Visit Instructions Your Diagnosis PIN III (prostatic intraepithelial neoplasia III) BPH (benign prostatic hyperplasia) ED (erectile dysfunction) Tests Performed Urnls Dip Stick Auto w/o Microscopy POC 16392 Your Care Team Attending Physician - Jameson MACIAS MD Primary Care Physician - LISSETTE SUH MD This Is Your Medications List tadalafil (tadalafil 5 mg oral tablet) tamsulosin (Flomax 0.4 mg Cap) Contact prescribing physician if questions or concerns acetaminophen-hydrocod one (Dequincy 325 mg-7.5 mg oral tablet) ciprofloxacin (Cipro 500 mg Tab) Procedures Performed TRUS (transrectal ultrasound) guided cryoablation of prostate (04/14/2022), Bilateral inguinal hernia repair (07/10/2013), Colonoscopy (2011). Discharge Vitals Heart Rate (Peripheral) 72 Blood Pressure 111/73 Height 172 cm Height 68 in Weight 55 kg Weight 121 lb BMI 18.59 What to do next Scheduled Follow-Up Appointments Wednesday 4:00 PM EST With: Where: [facility] Urology Surgical Services Wednesday 8:30 AM EDT With: Where: [facility] Urology Surgical Services Wednesday 11:00 AM EDT With: Jameson MACIAS MD Where: [facility] Luci Yee [facility] Patient Educationon 11-24-19 Patient Education Oncology Transrectal Ultrasound-Guided Prostate Biopsy, Care After This sheet gives you information about how to care for yourself after your procedure. Your health care provider may also give you more specific instructions. If you have problems or questions, contact your health care provider. What can I expect after the procedure? After the procedure, it is common to have: ? Pain and discomfort near your rectum, especially while sitting. ? Dunlap-colored urine due to small amounts of blood in your urine. ? A burning feeling while urinating. ? Blood in your stool (feces) or bleeding from your rectum. ? Blood in your semen. Follow these instructions at home: Medicines ? Take wfjk-ivb-kkjteam and prescription medicines only as told by your health care provider. ? If you were prescribed antibiotic medicine, take it as told by your health care provider. Do not stop taking the antibiotic even if you start to feel better. Activity ? Do not drive for 24 hours if you were given a medicine to help you relax (sedative) during your procedure. ? Return to your normal activities as told by your health care provider. Ask your health care provider what activities are safe for you. ? Ask your health care provider when it is okay for you to resume sexual activity. ? Do not lift anything that is heavier than 10 lb (4.5 kg), or the limit that you are told, until your health care provider says that it is safe. General instructions ? Drink enough water to keep your urine pale yellow. ? Watch your urine, stool, and semen for new or increased bleeding. ? Keep all follow-up visits as told by your health care provider. This is important. Contact a health care provider if: ? You have any of the following: ? Blood clots in your urine or stool. ? Blood in your urine more than 2 weeks after the procedure. ? Blood in your semen more than 2 months after the procedure. ? New or increased bleeding in your urine, stool, or semen. ? Severe pain in your abdomen. ? Your urine smells bad or unusual. ? You have trouble urinating. ? Your lower abdomen feels firm. ? You have problems getting an erection. ? You have nausea or you vomit. Get help right away if: ? You have a fever or chills. This could be a sign of infection. ? You have bright red urine. ? You have severe pain that does not get better with medicine. ? You cannot urinate. Summary ? After this procedure, it is common to have pain and discomfort around your rectum, especially while sitting. ? You may have blood in your urine and stool after the procedure. ? It is common to have blood in your semen for 1?2 months after this procedure. ? If you were prescribed antibiotic medicine, take it as told by your health care provider. Do not stop taking the antibiotic even if you start to feel better. ? Get help right away if you have a fever or chills. This could be a sign of infection. This information is not intended to replace advice given to you by your health care provider. Make sure you discuss any questions you have with your health care provider. Document Released: 02/28/2018 Document Revised: 12/27/2019 Document Reviewed: 02/28/2018 [employer] Patient Education ? 2019 [employer]. [facility] Urology Office/Clinic Noteon 11-23-2022 Urology Office/Clinic Note Chief Complaint Patient is here for 6 mth follow up PIN III Bx will be done 12-01-22 HPI Staff Patient here for 6 month follow up. Patient is scheduled for TRUS/bx on 12-01-22. Previous Dx:PIN III Patient states he feels good at this time. Dysuria: denies Incomplete bladder emptying: _ Hematuria: denies Nocturia: 1x Stream: strong History of Present Illness Tests reviewed: reviewed UA. I have reviewed the previous health record information and history for this patient from Dr. Macias. I have reviewed and verified the staff HPI to be accurate for this encounter. There have been no associated fever, chills, flank pain, or blood in the urine. Denies any urinary infections since last encounter. Review of Systems PHQ Score Initial Depression Screen Score: 0 ROS - Provider Constitutional: denies weight loss, denies hot flashes. Eyes: denies eye problems. Gastrointestinal: denies nausea, denies vomiting. Cardiovascular: denies chest pain or angina. Integumentary: no dryness Musculoskeletal: denies musculoskeletal symptoms. ENMT: denies otolaryngeal symptoms. Respiratory: no shortness of breath. Heme/Lymph: denies easy bleeding tendency, denies easy bruising tendency. Psychiatric: no confusion, no anxiety. Genitourinary: denies dysuria, denies hematuria, denies discharge, denies urinary frequency, denies urinary hesitancy, denies nocturia, denies incontinence, denies genital sores, denies decreased libido, and denies erectile dysfunction. Physical Exam Vitals & Measurements HR: 72(Peripheral) BP: 111/73 HT: 68 in HT: 172 cm WT: 55 kg WT: 121 lb BMI: 18.59 General Appearance: alert, no distress, well nourished, well developed male. Genitourinary: normal scrotum, normal testes, normal urethra, normal epididymis, normal vas deferens/spermatic cord. Flank Pain: none. Bladder: nonpalpable. Assessment/Plan 1. 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 S/p TRUS/bx 04/14/22. Path report shows SIXTO in the right lateral base. -Repeat TRUS/bx scheduled for 12/01/22. 2. BPH (benign prostatic hyperplasia) (N40.0: Benign prostatic hyperplasia without lower urinary tract symptoms) UA today negative for blood and infection. Pt stopped taking Tamsulosin 0.4 mg QD because he ran out. Refill sent to [facility]. Was taking in the morning. -restart Flomax 0.4 mg QD 3. ED (erectile dysfunction) (N52.9: Male erectile dysfunction, unspecified) Tadalafil 5 mg PRN. Not voicing any complaints. Does not need refill, to call. -cont med above Follow-up With When Contact Information LAKISHA HOUSTON, Jameson Kay, URL [facility] [address], [place] [address]- Additional Instructions: Repeat TRUS/bx scheduled for 12/01/22. Patient Education Transrectal Ultrasound-Guided Prostate Biopsy, Care After IPalmira, personally scribed for Dr. Macias on 11/23/2022 10:59:56. . Documentation recorded by the scribe, Palmira Mae, accurately reflects the services(s) I performed and decisions made by me. Authenticated by Dr. Macias on 11/23/2022 11:00:35. Problem List/Past Medical History Ongoing BPH (benign prostatic hyperplasia) ED (erectile dysfunction) Elevated PSA PIN III (prostatic intraepithelial neoplasia III) Prostatitis Smoker Historical No qualifying data Procedure/Surgical History TRUS (transrectal ultrasound) guided cryoablation of prostate (04/14/2022), Bilateral inguinal hernia repair (07/10/2013), Colonoscopy (2011). Medications Cipro 500 mg Tab, 500 mg= 1 tab(s), Oral, q12hr, Not taking Flomax 0.4 mg Cap, 0.4 mg= 1 cap(s), Oral, Daily, 11 refills Dequincy 325 mg-7.5 mg oral tablet, 1 tab(s), Oral, Once, Not taking tadalafil 5 mg oral tablet, 5 mg= 1 tab(s), Oral, Daily, 3 refills Allergies No Known Allergies Social History Tobacco 10 or more cigarettes (1/2 pack or more)/day in last 30 days Tobacco Use:. Cigarettes, 11/23/2022 Family History Cancer: Mother and Brother. Heart disease: Mother, Father and Brother. Immunizations Vaccine Date Status SARS-CoV-2 (COVID-19) mRNA BNT-162b2 vax 09/09/2021 Recorded SARS-CoV-2 (COVID-19) mRNA BNT-162b2 vax 01/21/2021 Recorded SARS-CoV-2 (COVID-19) mRNA BNT-162b2 vax 12/31/2020 Recorded Lab Results Ambulatory Point of Care Results Bilirubin Urine Dipstick: Negative (11/23/22 10:31:00) Blood Urine Dipstick: Trace-intact (11/23/22 10:31:00) Glucose Urine Dipstick: Negative (11/23/22 10:31:00) Ketones Urine Dipstick: Negative (11/23/22 10:31:00) Leukocytes Urine Dipstick: Negative (11/23/22 10:31:00) Nitrite Urine Dipstick: Negative (11/23/22 10:31:00) Protein Urine Dipstick: Negative (11/23/22 10:31:00) Specific [place] Urine Dipstick: <=1.005 (11/23/22 10:31:00) Urine Appearance Urine Dipstick: Clear ( (more content not included)... Normal [facility] Comment on above: Result Comment: Elec tronically Signed By: Jameson MACIAS MD\.br\Date and Time Signed: 11/23/22 11:00 EST\.br\Electronically Co-Signed By: Palmira Mae\.br\Date and Time Co-Signed: 11/23/22 11:00 EST Creatinine (Bld) [Mass/Vol]O rdered By: Jameson Macias on 02-10-2022 Creatinine [Mass/Vol] 1.1 mg/dL 0.6-1.[address] [facility] Comment on above: ER/ESD physician is notified/shown all ISTAT results. Critical values may be confirmed by laboratory testing if deemed necessary by ER attending doctor. ISTAT XRay CREon 02-10-2022 Creatinine [Mass/Vol] 1.1 mg/dL Normal 0.6-1.[address] [facility] Comment on above: Result Comment: ER/E SD physician is notified/shown all ISTAT results. Critical values may be confirmed by laboratory testing if deemed necessary by ER attending doctor. Performed By: #### I SCRE #### [address] Point of Care testing , ISTAT GFR ( > 60 Normal [facility] Comment on above: Result Comment: GFR estimated reference range: According to KDOQI guidelines, <60 ml/min/1.73m2 is sufficient to diagnose a patient with chronic kidney disease. PERFORMED BY: [place] [address] PATHOLOGIST [employer] SALVADOR GRAYSON M.D. Performed By: #### I SCRE #### [address] [place] [address] [facility] Point of Care testing , ISTAT GFR (Non- Am > 60 [facility] Comment on above: Performed By: #### I SCRE #### [facility] [address] [place] [address] Point of Care testing , MR prostate wo/w conon 02-10 MR prostate wo/w con [facility] Main [place] [address] [place] [address] MRI Report Signed Patient: Hans Mathew MR#: [id number] : 1955 Acct:[id number] Age/Sex: 66 / M ADM Date: 02/10/22 Loc: MR Room: Type: [facility] Attending Dr: Jameson Macias MD Ordering Provider: Jameson Macias MD Date of Service: 02/10/22 MR/MR prostate wo/w con: ELEVATED PSA Copies to: Jameson Macias MD EXAMINATION: MR prostate wo/w con HISTORY: Elevated PSA COMPARISON: NONE TECHNIQUE: Multiparametric imaging of the prostate gland was performed with IV contrast. FINDINGS: Prostate Dimensions: 4.2 x 3.3 x 4.3 cm Prostate Volume: 31 mL Peripheral Zone: Heterogenous in T2 signal suggestive of prior prostatitis. No focal T2 or ADC map abnormality is identified to suggest prostate malignancy. Central/Transitional Zone: BPH. Seminal Vesicles: Unremarkable Neurovascular bundles: Unremarkable Lymphadenopathy: No evidence of lymphadenopathy. Bladder: The bladder is unremarkable. Bowel: The visualized bowel is without acute abnormality. Peritoneal Cavity: No free fluid. Bones: Heterogenous bone marrow signal without focal lesion. MR/MR prostate wo/w con IMPRESSION: No MRI evidence of prostate malignancy. BPH changes. Impression dictated by: Alfredo Branham Jr., D.O.02/10/2022 9:34 AM Dictation Location: [facility]- Transcribed By: JASON 02/10/22933 Dictated By: Alfredo Branham Jr, 02/10/22925 Signed By: 02/10/22933 [facility] No Panel InformationOrdered By: Jameson Macias on 02-10-2022 POC Estimated GFR > 60 [facility] Comment on above: GFR estimated refere nce range: According to KDOQI guidelines, <60 ml/min/1.73m2 is sufficient to diagnose a patient with chronic kidney disease. POC Estimated GFR Non- Amer > 60 [facility] Vital Signs Date Time Vital Sign Value Performing Clinician Facility 07-16-2023 09:35-0400 Body height 170.18 cm [facility] Other [facility] Other 07-16-2023 09:35-0400 Body mass index (BMI) [Ratio] 18.73 kg/m2 [facility] Other [facility] Other 07-16-2023 09:35-0400 Body temperature 98 [degF] [facility] Other [facility] Other 07-16-2023 09:35-0400 Body weight 54.25 kg [facility] Other [facility] Other 07-16-2023 09:35-0400 Diastolic blood pressure 76 mm[Hg] [facility] Other [facility] Other 07-16-2023 09:35-0400 Respiratory rate 18 /min [facility] Other [facility] [facility] Other 07-16-2023 09:35-0400 SaO2% (BldA) [Mass fraction] 99 % [facility] Other [facility] Other 07-16-2023 09:35-0400 Systolic blood pressure 134 mm[Hg] [facility] Other [facility] [facility] Other 11-23-2022 10:37-0500 Blood Pressure Location Jameson MACIAS [facility] 11-23-2022 10:37-0500 Diastolic blood pressure 73 mm[Hg] Jameson MACIAS [facility] 11-23-2022 10:37-0500 Heart rate 72 /min Jameson MACIAS [facility] 11-23-2022 10:37-0500 Systolic blood pressure 111 mm[Hg] Jameson MACIAS [facility] 10-14-2022 10:45-0500 Body height 170.18 cm [facility] Other [facility] Other 10-14-2022 10:45-0500 Body mass index (BMI) [Ratio] 19.58 kg/m2 [facility] Other [facility] Other 10-14-2022 10:45-0500 Body temperature 98.2 [degF] [facility] Other [facility] Other 10-14-2022 10:45-0500 Body weight 56.7 kg [facility] Other [facility] Other 10-14-2022 10:45-0500 Diastolic blood pressure 87 mm[Hg] [facility] Other [facility] Other 10-14-2022 10:45-0500 Respiratory rate 18 /min [facility] Other [facility] Other 10-14-2022 10:45-0500 SaO2% (BldA) [Mass fraction] 97 % [facility] Other [facility] Other 10-14-2022 10:45-0500 Systolic blood pressure 140 mm[Hg] [facility] Other [facility] Other 10-09-2022 10:00-0500 Body height 167.64 cm Lissette Suh Other [facility] [facility] Other 10-09-2022 10:00-0500 Body mass index (BMI) [Ratio] 19.53 kg/m2 Lissette Suh Other [facility] Other 10-09-2022 10:00-0500 Body weight 54.89 kg Lissette Suh Other [facility] Other 10-09-2022 10:00-0500 Diastolic blood pressure 84 mm[Hg] Lissette Suh Other [facility] [facility] Other 10-09-2022 10:00-0500 SaO2% (BldA) [Mass fraction] 99 % Lissette Suh Other [facility] Other 10-09-2022 10:00-0500 Systolic blood pressure 122 mm[Hg] Lissette Suh Other [facility] [facility] Other 02-10-2022 06:44-0400 Body height 175.26 cm MD Lissette Suh Work Phone: [facility] 02-10-2022 06:44-0400 Body weight 55.33 kg MD Lissette Suh Work Phone: [facility] 01-19-2022 09:50-0400 Blood Pressure Location Jameson MACIAS [facility] 01-19-2022 09:50-0400 Diastolic blood pressure 73 mm[Hg] [facility] MACIAS [facility] 01-19-2022 09:50-0400 Heart rate 64 /min Jameson MACIAS [facility] 01-19-2022 09:50-0400 Respiratory rate 16 /min Jameson MACIAS [facility] 01-19-2022 09:50-0400 Systolic blood pressure 131 mm[Hg] Jameson MACIAS [facility] Encounters Encounter Date Encounter Type Care Provider Facility Start: 12-20-2023 ambulatory Jameson Gillettei ty:[facility] Start: 10-25-2023 End: 10-25-2023 ambulatory Lissette Suh Other [facility] [facility] Other Start: 10-25-2023 Telephone encounter Lissette Suh [facility] Start: 10-22-2023 End: 10-22-2023 ambulatory Lissette Suh Other [employer] Other Start: 10-22-2023 Telephone encounter Lissette Suh [facility] Start: 10-21-2023 (Televisit) Televisit Lissette Suh [facility] Start: 10-21-2023 End: 10-21-2023 ambulatory Lissette Suh Other [employer] [facility] Other Start: 07-16-2023 End: 07-16-2023 ambulatory [facility] Other [facility] Other Start: 07-16-2023 Office outpatient vi sit 15 minutes [facility] Start: 02-23-2023 End: 02-23-2023 ambulatory Lissette Suh Other [employer] Other Start: 02-23-2023 Telephone encounter Lissette Suh [facility] Start: 12-18-2022 End: 12-19-2022 ambulatory Jameson MACIAS Facility:[facility] [place] Start: 12-01-2022 End: 12-02-2022 ambulatory Jameson MACIAS Facility:[facility] Start: 11-23-2022 End: 11-24-2022 ambulatory Jameson MACIAS Facility:[facility] Start: 11-23-2022 End: 11-23-2022 Patient encounter procedure Jameson MACIAS [facility] Start: 10-14-2022 End: 10-14-2022 ambulatory [facility] Other [facility] [facility] Other Start: 10-14-2022 Office outpatient vi sit 15 minutes [facility] Start: 10-09-2022 End: 10-09-2022 ambulatory Lissette Suh Other [employer] Other Start: 10-09-2022 Office outpatient vi sit 15 minutes Lissette Suh [facility] Start: 05-01-2022 End: 05-01-2022 Patient encounter procedure Jameson MACIAS [facility] Start: 04-14-2022 End: 04-14-2022 Patient encounter procedure Jameson MACIAS [facility] Start: 02-10-2022 End: 02-10-2022 Patient encounter procedure MD Lissette Suh Work Phone: [facility] Start: 01-19-2022 End: 01-19-2022 Patient encounter procedure Jameson MACIAS [facility] Start: 01-12-2022 End: 01-13-[address] JAMESON MACIAS Facility:[facility] Start: 11-12-2021 End: 11-13-[address] LISSETTE SUH Facility:[facility] Start: 05-28-2021 End: 05-29-[address] LISSETTE SUH Facility:[facility] Procedures Date Procedure Procedure Detail Performing Clinician Start: 04-14-2022 Ultrasonography guid ed transrectal cryoablation of prostate Jameson MACIAS Start: 02-10-2022 MR prostate wo/w con MD Lissette Suh Work Phone: Start: 01-12-[address] JUSTIN MACIAS Comment on above: Performed By: #### P SAD #### [facility] [address] [place] [address] Dr. Edmond Gamble Start: 11-12-[address] JUSTIN MACIAS Comment on above: Performed By: #### P SASC #### [facility] [address] [place] [address] Dr. Edmond Gamble Start: 03-27-2016 Removal of suture [facility] Other Start: 10-04-2013 General examination of patient [facility] Other Start: 07-10-2013 Bilateral inguinal h ernia repair Jameson MACIAS Start: 09-20-2011 Colonoscopy Jameson SOTO Screening for malign ant neoplasm of prostate [facility] Other Immunizations Immunization Date Immunization Notes Care Provider Fa cility 09-09-2021 SARS-CoV-2 (COVID-19 ) mRNA BNT-162b2 vax Jameson MACIAS [facility] 01-21-2021 SARS-CoV-2 (COVID-19 ) mRNA BNT-162b2 imguel MACIAS [facility] 12-31-2020 SARS-CoV-2 (COVID-19 ) mRNA BNT-162b2 miguel MACIAS [facility] 07-02-2015 tetanus and diphther ia toxoids, adsorbed, preservative free, for adult use (5 Lf of tetanus toxoid and 2 Lf of diphtheria toxoid) [facility] Other [facility] Other 07-23-2014 tetanus and diphther ia toxoids, adsorbed, preservative free, for adult use (5 Lf of tetanus toxoid and 2 Lf of diphtheria toxoid) [facility] Other [facility] Other Payers Date Payer Category Payer Unknown [id number] [id number] 2020 Medicare [id number] 1959 Medicare [id number] 1959 Unknown [id number] 1955 Unknown [id number] 2.16.84 [id number] 1955 Unknown [id number] 2.16.84 [id number] 1955 Unknown [id number] 2.16.84 [id number] 1955 Unknown [id number] 2.16.8 [id number] 1955 Unknown [id number] 2.16.8 [id number] 1955 Unknown [id number] 2.16.8 [id number] 1955 Unknown [id number] 2.16.8 [id number] Medicare Medicare [id number] Self-pay Self Pay [id number] Unknown [place] [employer] [place] [id number] Social History Date Type Detail Facility Start: 12-22-2021 Tobacco smoking status Smoker (findi ng) [facility] Sex Assigned At Male [facility] [employer] Start: 1955 Sex Assigned At Male [facility] Start: 05-01-2022 End: 11-23-2022 Tobacco smoking status Heavy tobacco smoker (finding) [facility] [employer] Functional Status Date Assessment Result Facility 11-23-2022 Functional Status N/A [facility] 05-01-2022 Functional Status N/A [facility] Clinical Notes 05-28-2021 to 10-21-2023 Note Date & Type Note Facility 10-21-2023 Evaluation note Encounter Date Diagnosis Assessment Notes Oct, Febrile illness, acute (ICD-10 - R50.9) Discussed labs and chest x-ray as indicated for workup of fevers and chills. Differential includes pneumonia urinary tract infection prostatitis or other infectious etiology. Patient states he will go tomorrow for labs and chest x-ray. Patient agrees to go to ER if symptoms worsen in the meantime. [facility] [facility] Other 10-27-2023 Evaluation note* Encounter Date Diagnosis Assessment Notes Treatment Notes Treatment Clinical Notes Jun, Left ear impacted cerumen (ICD-10 - H61.22) Drink plenty fluids, get plenty of rest. Use eardrops as prescribed. Take Tylenol or Motrin for aches pains or fevers. Follow-up with your family physician for any further concerns. Jun, Otitis externa in other diseases classified elsewhere, left ear (ICD-10 - H62.42) [facility] [facility] Other 03-14-2023 Note [id number] 11-23-2022 Hospital Discharge instructions Patient Education 11/23/2022 10:53:28 Transrectal Ultrasound-Guided Prostate Biopsy, Care After Transrectal Ultrasound-Guided Prostate Biopsy, Care After This sheet gives you information about how to care for yourself after your procedure. Your health care provider may also give you more specific instructions. If you have problems or questions, contact your health care provider. What can I expect after the procedure? After the procedure, it is common to have: Pain and discomfort near your rectum, especially while sitting. Dunlap-colored urine due to small amounts of blood in your urine. A burning feeling while urinating. Blood in your stool (feces) or bleeding from your rectum. Blood in your semen. Follow these instructions at home: Medicines Take mich-qle-qxkkyvo and prescription medicines only as told by your health care provider. If you were prescribed antibiotic medicine, take it as told by your health care provider. Do not stop taking the antibiotic even if you start to feel better. Activity Do not drive for 24 hours if you were given a medicine to help you relax (sedative) during your procedure. Return to your normal activities as told by your health care provider. Ask your health care provider what activities are safe for you. Ask your health care provider when it is okay for you to resume sexual activity. Do not lift anything that is heavier than 10 lb (4.5 kg), or the limit that you are told, until your health care provider says that it is safe. General instructions Drink enough water to keep your urine pale yellow. Watch your urine, stool, and semen for new or increased bleeding. Keep all follow-up visits as told by your health care provider. This is important. Contact a health care provider if: You have any of the following: ?Blood clots in your urine or stool. ?Blood in your urine more than 2 weeks after the procedure. ?Blood in your semen more than 2 months after the procedure. ?New or increased bleeding in your urine, stool, or semen. ?Severe pain in your abdomen. Your urine smells bad or unusual. You have trouble urinating. Your lower abdomen feels firm. You have problems getting an erection. You have nausea or you vomit. Get help right away if: You have a fever or chills. This could be a sign of infection. You have bright red urine. You have severe pain that does not get better with medicine. You cannot urinate. Summary After this procedure, it is common to have pain and discomfort around your rectum, especially whilesitting. You may have blood in your urine and stool after the procedure. It is common to have blood in your semen for 1 2 months after this procedure. If you were prescribed antibiotic medicine, take it as told by your health care provider. Do not stop taking the antibiotic even if you start to feel better. Get help right away if you have a fever or chills. This could be a sign of infection. This information is not intended to replace advice given to you by your health care provider. Make sure you discuss any questions you have with your health care provider. Document Released: 02/28/2018 Document Revised: 12/27/2019 Document Reviewed: 02/28/2018 [employer] Patient Education 2020 [employer]. Follow Up Care 01/19/2022 10:17:27 With:LAKISHA HOUSTON, Jameson Kay, URL Address: [facility] [address], [place] [address]- When: Unknown [facility] 01-25-2023 Evaluation note* Encounter Date Diagnosis Assessment Notes Treatment Notes Treatment Clinical Notes Sep, Impacted cerumen, right ear (ICD-10 - H61.21) Cerumen impaction home care material was printed Use the Debrox eardrops twice a day for 5 days. Return to the urgent care on Wednesday to have your ear irrigated. [facility] Other 01-20-2023 Evaluation note* Encounter Date Diagnosis Assessment Notes Treatment Notes Treatment Clinical Notes Sep, Bilateral impacted cerumen (ICD-10 - H61.23) Advised to use Debrox for 1 week and then return for ear lavage. His cerumen is very hard and immobile. [facility] [facility] Other 08-12-2022 Hospital Discharge instructions Patient Education 05/01/2022 11:24:14 Benign Prostatic Hyperplasia Benign Prostatic Hyperplasia Benign prostatic hyperplasia (BPH) is an enlarged prostate gland that is caused by the normal agingprocess and not by cancer. The prostate is a walnut-sized gland that is involved in the production of semen. It is located in front of the rectum and below the bladder. The bladder stores urine and the urethra is the tube that carries the urine out of the body. The prostate may get bigger as a man gets older. An enlarged prostate can press on the urethra. This can make it harder to pass urine. The build-up of urine in the bladder can cause infection. Back pressure and infection may progress to bladder damage and kidney (renal) failure. What are the causes? This condition is part of a normal aging process. However, not all men develop problems from this condition. If the prostate enlarges away from the urethra, urine flow will not be blocked. If it enlarges toward the urethra and compresses it, there will be problems passing urine. What increases the risk? This condition is more likely to develop in men over the age of 50 years. What are the signs or symptoms? Symptoms of this condition include: Getting up often during the night to urinate. Needing to urinate frequently during the day. Difficulty starting urine flow. Decrease in size and strength of your urine stream. Leaking (dribbling) after urinating. Inability to pass urine. This needs immediate treatment. Inability to completely empty your bladder. Pain when you pass urine. This is more common if there is also an infection. Urinary tract infection (UTI). How is this diagnosed? This condition is diagnosed based on your medical history, a physical exam, and your symptoms. Tests will also be done, such as: A post-void bladder scan. This measures any amount of urine that may remain in your bladder after you finish urinating. A digital rectal exam. In a rectal exam, your health care provider checks your prostate by putting a lubricated, gloved finger into your rectum to feel the back of your prostate gland. This exam detects the size of your gland and any abnormal lumps or growths. An exam of your urine (urinalysis). A prostate specific antigen (PSA) screening. This is a blood test used to screen for prostate cancer. An ultrasound. This test uses sound waves to electronically produce a picture of your prostate gland. Your health care provider may refer you to a specialist in kidney and prostate diseases (urologist). How is this treated? Once symptoms begin, your health care provider will monitor your condition (active surveillance or watchful waiting). Treatment for this condition will depend on the severity of your condition. Treatment may include: Observation and yearly exams. This may be the only treatment needed if your condition and symptoms are mild. Medicines to relieve your symptoms, including: ?Medicines to shrink the prostate. ?Medicines to relax the muscle of the prostate. Surgery in severe cases. Surgery may include: ?Prostatectomy. In this procedure, the prostate tissue is removed completely through an open incision or with a laparoscope or robotics. ?Transurethral resection of the prostate (TURP). In this procedure, a tool is inserted through the opening at the tip of the penis (urethra). It is used to cut away tissue of the inner core of the prostate. The pieces are removed through the same opening of the penis. This removes the blockage. ?Transurethral incision (TUIP). In this procedure, small cuts are made in the prostate. This lessens the prostate's pressure on the urethra. ?Transurethral microwave thermotherapy (TUMT). This procedure uses microwaves to create heat. The heat destroys and removes a small amount of prostate tissue. ?Transurethral needle ablation (TUNA). This procedure uses radio frequencies to destroy and remove a small amount of prostate tissue. ?Interstitial laser coagulation (ILC). This procedure uses a laser to destroy and remove a small amount of prostate tissue. ?Transurethral electrovaporization (TUVP). This procedure uses electrodes to destroy and remove a small amount of prostate tissue. ?Prostatic urethral lift. This procedure inserts an implant to push the lobes of the prostate away from the urethra. Follow these instructions at home: Take iiam-ebh-yomahbs and prescription medicines only as told by your health care provider. Monitor your symptoms for any changes. Contact your health care provider with any changes. Avoid drinking large amounts of liquid before going to bed or out in public. Avoid or reduce how much caffeine or alcohol you drink. Give yourself time when you urinate. Keep all follow-up visits as told by your health care provider. This is important. Contact a health care provider if: You have unexplained back pain. Your symptoms do not get better with treatment. You develop side effects from the medicine you are taking. Your urine becomes very dark or has a bad smell. Your lower abdomen becomes distended and you have trouble passing your urine. Get help right away if: You have a fever or chills. You suddenly cannot urinate. You feel lightheaded, or very dizzy, or you faint. There are large amounts of blood or clots in the urine. Your urinary problems become hard to manage. You develop moderate to severe low back or flank pain. The flank is the side of your body between the ribs and the hip. These symptoms may represent a serious problem that is an emergency. Do not wait to see if the symptoms will go away. Get medical help right away. Call your local emergency services (911 in the [place] Do not drive yourself to the hospital. Summary Benign prostatic hyperplasia (BPH) is an enlarged prostate that is caused by the normal aging process and not by cancer. An enlarged prostate can press on the urethra. This can make it hard to pass urine. This condition is part of a normal aging process and is more likely to develop in men over the age of 50 years. Get help right away if you suddenly cannot urinate. This information is not intended to replace advice given to you by your health care provider. Make sure you discuss any questions you have with your health care provider. Document Released: 09/06/2006 Document Revised: 08/01/2019 Document Reviewed: 10/11/2017 [employer] Patient Education 2020 [employer]. Follow Up Care 04/08/2022 15:13:56 With:LAKISHA HOUSTON, Jameson Kay, URL Address: [address] [place] [address]- When: Unknown [facility] 07-26-2022 Hospital Discharge instructions Patient Education 04/14/2022 15:08:03 [facility] - Transrectal Ultrasound of the Prostate with US guided biopsy Discharge Instructions (CUSTOM) Transrectal Ultrasound of the Prostate with US guided biopsy Even though there are no visible incisions, multiple prostate biopsies have been taken through the rectum and you need to follow some instructions to minimize the risks of bleeding. You may see some blood in your urine and stool for up to 1 week (and blood in the semen for severalmonths) Diet -You may resume your normal diet, but you may want to avoid alcohol, carbonated drinks, caffeine, and spicy foods, which may increase the irritation from the surgery. -Drink plenty of water to keep the urine clear. Activity -You should limit any physical activity for about 48 hours -No heavy lifting or straining (10 pound limit) -No driving a car and limit long car rides for 2 days -No strenuous exercise -No sexual intercourse until this is discussed with your doctor Bowels -Try to keep your bowel movements soft to minimize straining to have a bowel movement. -You may use a stool softener or over the counter laxative if needed -Difficult bowel movement may lead to straining and bleeding from the prostate Medications -You may resume your home medications unless instructed otherwise -Hold aspirin, ibuprofen, Coumadin (warfarin) and other blood thinners for about two days or until there is no active bleeding unless otherwise instructed -Finish the antibiotic which you have already started Things to watch for which would require an Emergency Room visit or call 911: (this is not a complete list) -Persistent or heavy bleeding or blood clots from the rectum or in the urine -Inability to urinate -Fever over 101.5 degrees Fahrenheit, with or without chills -Severe drug reactions with itching, hives or rash -Tenderness or swelling of the calves, chest pain, or shortness of breath Please call the office to arrange for your post-operative appointment in 1-2 weeks [phone] or [phone] Follow Up Care 04/08/2022 13:41:21 With:Jameson MACIAS Address: [facility] [address] [place] [address]- Business (1) When: Unknown Comments:Keep scheduled appointment [facility]05-02-2022 Hospital Discharge instructions Patient Education 01/19/2022 08:16:13 Erectile Dysfunction Erectile Dysfunction Erectile dysfunction (ED) is the inability to get or keep an erection in order to have sexual intercourse. Erectile dysfunction may include: Inability to get an erection. Lack of enough hardness of the erection to allow penetration. Loss of the erection before sex is finished. What are the causes? This condition may be caused by: Certain medicines, such as: ?Pain relievers. ?Antihistamines. ?Antidepressants. ?Blood pressure medicines. ?Water pills (diuretics). ?Ulcer medicines. ?Muscle relaxants. ?Drugs. Excessive drinking. Psychological causes, such as: ?Anxiety. ?Depression. ?Sadness. ?Exhaustion. ?Performance fear. ?Stress. Physical causes, such as: ?Artery problems. This may include diabetes, smoking, liver disease, or atherosclerosis. ?High blood pressure. ?Hormonal problems, such as low testosterone. ?Obesity. ?Nerve problems. This may include back or pelvic injuries, diabetes mellitus, multiple sclerosis, or Parkinson disease. What are the signs or symptoms? Symptoms of this condition include: Inability to get an erection. Lack of enough hardness of the erection to allow penetration. Loss of the erection before sex is finished. Normal erections at some times, but with frequent unsatisfactory episodes. Low sexual satisfaction in either partner due to erection problems. A curved penis occurring with erection. The curve may cause pain or the penis may be too curved to allow for intercourse. Never having nighttime erections. How is this diagnosed? This condition is often diagnosed by: Performing a physical exam to find other diseases or specific problems with the penis. Asking you detailed questions about the problem. Performing blood tests to check for diabetes mellitus or to measure hormone levels. Performing other tests to check for underlying health conditions. Performing an ultrasound exam to check for scarring. Performing a test to check blood flow to the penis. Doing a sleep study at home to measure nighttime erections. How is this treated? This condition may be treated by: Medicine taken by mouth to help you achieve an erection (oral medicine). Hormone replacement therapy to replace low testosterone levels. Medicine that is injected into the penis. Your health care provider may instruct you how to give yourself these injections at home. Vacuum pump. This is a pump with a ring on it. The pump and ring are placed on the penis and used to create pressure that helps the penis become erect. Penile implant surgery. In this procedure, you may receive: ?An inflatable implant. This consists of cylinders, a pump, and a reservoir. The cylinders can be inflated with a fluid that helps to create an erection, and they can be deflated after intercourse. ?A semi-rigid implant. This consists of two silicone rubber rods. The rods provide some rigidity. They are also flexible, so the penis can both curve downward in its normal position and become straight for sexual intercourse. Blood vessel surgery, to improve blood flow to the penis. During this procedure, a blood vessel from a different part of the body is placed into the penis to allow blood to flow around (bypass) damaged or blocked blood vessels. Lifestyle changes, such as exercising more, losing weight, and quitting smoking. Follow these instructions at home: Medicines Take bfqj-qtx-yetaqju and prescription medicines only as told by your health care provider. Do not increase the dosage without first discussing it with your health care provider. If you are using self-injections, perform injections as directed by your health care provider. Makesure to avoid any veins that are on the surface of the penis. After giving an injection, apply pressure to the injection site for 5 minutes. General instructions Exercise regularly, as directed by your health care provider. Work with your health care provider to lose weight, if needed. Do not use any products that contain nicotine or tobacco, such as cigarettes and e-cigarettes. If you need help quitting, ask your health care provider. Before using a vacuum pump, read the instructions that come with the pump and discuss any questionswith your health care provider. Keep all follow-up visits as told by your health care provider. This is important. Contact a health care provider if: You feel nauseous. You vomit. Get help right away if: You are taking oral or injectable medicines and you have an erection that lasts longer than 4 hours. If your health care provider is unavailable, go to the nearest emergency room for evaluation. An erection that lasts much longer than 4 hours can result in permanent damage to your penis. You have severe pain in your groin or abdomen. You develop redness or severe swelling of your penis. You have redness spreading up into your groin or lower abdomen. You are unable to urinate. You experience chest pain or a rapid heart beat (palpitations) after taking oral medicines. Summary Erectile dysfunction (ED) is the inability to get or keep an erection during sexual intercourse. This problem can usually be treated successfully. This condition is diagnosed based on a physical exam, your symptoms, and tests to determine the cause. Treatment varies depending on the cause, and may include medicines, hormone therapy, surgery, orvacuum pump. You may need follow-up visits to make sure that you are using your medicines or devices correctly. Get help right away if you are taking or injecting medicines and you have an erection that lasts longer than 4 hours. This information is not intended to replace advice given to you by your health care provider. Make sure you discuss any questions you have with your health care provider. Document Released: 09/03/2001 Document Revised: 08/19/2018 Document Reviewed: 09/22/2017 [employer] Patient Education 2020 [employer]. 01/19/2022 08:16:11 Benign Prostatic Hyperplasia Benign Prostatic Hyperplasia Benign prostatic hyperplasia (BPH) is an enlarged prostate gland that is caused by the normal agingprocess and not by cancer. The prostate is a walnut-sized gland that is involved in the production of semen. It is located in front of the rectum and below the bladder. The bladder stores urine and the urethra is the tube that carries the urine out of the body. The prostate may get bigger as a man gets older. An enlarged prostate can press on the urethra. This can make it harder to pass urine. The build-up of urine in the bladder can cause infection. Back pressure and infection may progress to bladder damage and kidney (renal) failure. What are the causes? This condition is part of a normal aging process. However, not all men develop problems from this condition. If the prostate enlarges away from the urethra, urine flow will not be blocked. If it enlarges toward the urethra and compresses it, there will be problems passing urine. What increases the risk? This condition is more likely to develop in men over the age of 50 years. What are the signs or symptoms? Symptoms of this condition include: Getting up often during the night to urinate. Needing to urinate frequently during the day. Difficulty starting urine flow. Decrease in size and strength of your urine stream. Leaking (dribbling) after urinating. Inability to pass urine. This needs immediate treatment. Inability to completely empty your bladder. Pain when you pass urine. This is more common if there is also an infection. Urinary tract infection (UTI). How is this diagnosed? This condition is diagnosed based on your medical history, a physical exam, and your symptoms. Tests will also be done, such as: A post-void bladder scan. This measures any amount of urine that may remain in your bladder after you finish urinating. A digital rectal exam. In a rectal exam, your health care provider checks your prostate by putting a lubricated, gloved finger into your rectum to feel the back of your prostate gland. This exam detects the size of your gland and any abnormal lumps or growths. An exam of your urine (urinalysis). A prostate specific antigen (PSA) screening. This is a blood test used to screen for prostate cancer. An ultrasound. This test uses sound waves to electronically produce a picture of your prostate gland. Your health care provider may refer you to a specialist in kidney and prostate diseases (urologist). How is this treated? Once symptoms begin, your health care provider will monitor your condition (active surveillance or watchful waiting). Treatment for this condition will depend on the severity of your condition. Treatment may include: Observation and yearly exams. This may be the only treatment needed if your condition and symptoms are mild. Medicines to relieve your symptoms, including: ?Medicines to shrink the prostate. ?Medicines to relax the muscle of the prostate. Surgery in severe cases. Surgery may include: ?Prostatectomy. In this procedure, the prostate tissue is removed completely through an open incision or with a laparoscope or robotics. ?Transurethral resection of the prostate (TURP). In this procedure, a tool is inserted through the opening at the tip of the penis (urethra). It is used to cut away tissue of the inner core of the prostate. The pieces are removed through the same opening of the penis. This removes the blockage. ?Transurethral incision (TUIP). In this procedure, small cuts are made in the prostate. This lessens the prostate's pressure on the urethra. ?Transurethral microwave thermotherapy (TUMT). This procedure uses microwaves to create heat. The heat destroys and removes a small amount of prostate tissue. ?Transurethral needle ablation (TUNA). This procedure uses radio frequencies to destroy and remove a small amount of prostate tissue. ?Interstitial laser coagulation (ILC). This procedure uses a laser to destroy and remove a small amount of prostate tissue. ?Transurethral electrovaporization (TUVP). This procedure uses electrodes to destroy and remove a small amount of prostate tissue. ?Prostatic urethral lift. This procedure inserts an implant to push the lobes of the prostate away from the urethra. Follow these instructions at home: Take rruh-bfn-eeodlaq and prescription medicines only as told by your health care provider. Monitor your symptoms for any changes. Contact your health care provider with any changes. Avoid drinking large amounts of liquid before going to bed or out in public. Avoid or reduce how much caffeine or alcohol you drink. Give yourself time when you urinate. Keep all follow-up visits as told by your health care provider. This is important. Contact a health care provider if: You have unexplained back pain. Your symptoms do not get better with treatment. You develop side effects from the medicine you are taking. Your urine becomes very dark or has a bad smell. Your lower abdomen becomes distended and you have trouble passing your urine. Get help right away if: You have a fever or chills. You suddenly cannot urinate. You feel lightheaded, or very dizzy, or you faint. There are large amounts of blood or clots in the urine. Your urinary problems become hard to manage. You develop moderate to severe low back or flank pain. The flank is the side of your body between the ribs and the hip. These symptoms may represent a serious problem that is an emergency. Do not wait to see if the symptoms will go away. Get medical help right away. Call your local emergency services (911 in the [place] Do not drive yourself to the hospital. Summary Benign prostatic hyperplasia (BPH) is an enlarged prostate that is caused by the normal aging process and not by cancer. An enlarged prostate can press on the urethra. This can make it hard to pass urine. This condition is part of a normal aging process and is more likely to develop in men over the age of 50 years. Get help right away if you suddenly cannot urinate. This information is not intended to replace advice given to you by your health care provider. Make sure you discuss any questions you have with your health care provider. Document Released: 09/06/2006 Document Revised: 08/01/2019 Document Reviewed: 10/11/2017 [employer] Patient Education 2020 [employer]. Follow Up Care 12/22/2021 10:57:06 With:LAKISHA HOUSTON, WILLIAM Spain Address: [facility] [address] , [place] [address]- When:07/22/2022 [facility] 09-08-2021 NotePROCEDURE: XR FOOT RT MIN 3 VIEWS COMPARISON: None. HISTORY: Pain in right foot FINDINGS: BONES:No fracture, acute abnormality, or significant arthropathy. SOFT TISSUES:Negative. No visible soft tissue swelling. EFFUSION:None visible. OTHER: Negative. IMPRESSION: No acute abnormality Electronically authenticated by: EUGENIA RANDOLPH Date: 2021-05-28 16:50[facility]ments Appointment Date:07/24/2022 11:15:00 AM Scheduled Provider:Jameson MACIAS MD Location:[facility] Appointment Type:URO Office Visit [facility] evaluation + Plan note Future Appointments Appointment Date:04/24/2022 10:30:00 AM Scheduled Provider:Jameson MACIAS MD Location:[facility] Appointment Type:URO Office Visit Appointment Date:07/24/2022 11:15:00 AM Scheduled Provider:Jameson MACIAS MD Location:[facility] Appointment Type:URO Office Visit Diagnostic Tests Pending * Prostate [facility]ments Appointment Date:11/24/2022 04:00:00 PM Scheduled Provider: Location:[facility] Appointment Type:Urology CALL PAT FT Appointment Date:12/01/2022 08:30:00 AM Scheduled Provider: Location:[facility] Appointment Type:Urology FT Appointment Date:12/18/2022 11:00:00 AM Scheduled Provider:Jameson MACIAS MD Location:[facility] Appointment Type:URO Office Visit [facility] evalpmmwrr noteNo assessment information available [facility] Work Phone: Evaluation noteNo InformationNort Haload Other History general Narrative - Reported* Type Description Date Medical History Elevated PSA Medical History Disc disease, degenerative, lumb ar or lumbosacral Medical History Right foot pain Medical History Left lumbar radiculopathy Medical History Benign prostatic hyp erplasia with lower urinary tract symptoms Medical History Erectile dysfunction Surgical History INGUINAL HERNIA REPAIR R 2010 Surgical History COLONOSCOPY Hospitalization History see above [employer] Other Hospital course Narrative No data available for this section [facility] progress note No data available for this section [facility] Summary Purpose Family History No Family History Records FoundNo Family History Records FoundNo Family History Records Found Advance Directives Advance Directive Response Recorded Date/ Time Advance Directives No February 06 1:35pm Chief Complaint and Reason for Visit Chief Complaint Elevated PSA Additional Source Comments (unrecognized sect ion and content) No Status Records FoundNo Status Records FoundNo Status Records Found INFORMATION SOURCE (unrecogn ized section and content) DATE CREATED AUTHOR 01/17/2022 [facility] DATE CREATED AUTHOR AUTHOR'S ORGANIZ ATION 02/18/2022 [facility] DATE CREATED AUTHOR AUTHOR'S ORGANIZ ATION 10/29/2023 [facility] Care Teams (unrecognized sec tion and content) Team Status: Inactive Member Role Status Dates Lissette Suh MD Primary Care Provider Active Jameson Macias MD Attending Provider Active Team Status: Active Member Role Status Dates Lissette Suh MD Primary Care Provider Active Goals (unrecognized section and content) Goals may be documented in a n alternate section REASON FOR VISIT (unrecogniz ed section and content) EaracheEAR PAINrefillLEFT EA R PLUGGEDCXRlabsurine culturesick, fever FOR RECORDS PERTAINING TO PATIENTS WHO ARE OR HAVE BEEN ENROLLED IN A CHEMICAL DEPENDENCY/SUBSTANCEABUSE PROGRAM, SOME INFORMATION MAY BE OMITTED. This clinical summary was aggregated from multiple sources. Caution should be exercised in using it in the provision of clinical care. This summary normalizes information from multiple sources, and as a consequence, information in this document may materially change the coding, format and clinical context of patient data. In addition, data may be omitted in some cases. CLINICAL DECISIONS SHOULD BE BASED ON THE PRIMARY CLINICAL RECORDS. [facility]. provides no warranty or guarantee of the accuracy or completeness of information in this document.
--- NOTE | 2023-11-19 07:39 | CT_ITS ---
[address] [address] Patient Name: RAFFI CARTAGENA MRN: [id number] date: 1955 Sex: M Assigned Patient Location: CT Current Patient Location: CT Accession/Order Number: [id number] Exam Date: 11/19/2023 07:45 Report Date: 11/19/2023 08:57 At the request of: NORY SUH Procedure: CT lung screening low-dose EXAMINATION: CT lung screening low-dose HISTORY: Nicotine Dependence Cigarettes F17.210 COMPARISON: No relevant comparison available. TECHNIQUE: Axial, Coronal, and Sagittal images were created without the administration of IV contrast material. Dose reduction techniques were achieved by using automated exposure control and/or adjustment of mA and/or kV according to patient size and/or use of iterative reconstruction technique. FINDINGS: LUNGS: Patchy and nodular opacities in both lung apices, I favor pleural parenchymal scarring. Scattered subcentimeter pulmonary nodules the largest measuring 6.2 x 4.1 mm along the left major fissure, axial image 87 PLEURA: No mass, effusion, or pneumothorax. VASCULATURE: No abnormality. RENETTA: No mass or pathologic adenopathy. MEDIASTINUM: No mass or pathologic adenopathy. CARDIAC: No enlargement or pericardial effusion. Heavy coronary atherosclerosis CORONARY ARTERIES: AORTA: No aneurysm or dissection. CHEST WALL: No mass or axillary adenopathy BONES: No bone lesion or fracture. Moderate degenerative changes LIMITED ABDOMEN: No suspicious findings. Limited images of the upper abdomen. OTHER: Negative. CT/CT lung screening low-dose IMPRESSION: LUNG SCREENING: Lung-RADS Category 2- Benign Appearance or Behavior. Nodules with a very low likelihood of becoming a clinically active cancer due to size or lack of growth. 2. Continue annual screening with LDCT in 12 months. Electronically authenticated by: EUGENIA RANDOLPH Date: 11/19/2023 08:57
== END 2023-11-19 07:36 | disposition home or self-care (01) ==
LOC: CT 07:35
PROVIDERS: PCP Family Medicine; Visit Provider Family Medicine
DX: F17.210 Nicotine dependence, cigarettes, uncomplicated (principal)
CPT/HCPCS: 71271

== ENCOUNTER 2024-01-04 07:39 | Outpatient (RCR) | payer MEDICARE, OTHER, SELFPAY ==
[2024-01-04 16:28] LABS: Basophils Percent Auto 0.4 % (0.2-2.0); Eosinophils Absolute Auto 0.1 10^3/uL (0.0-0.7); Eosinophils Percent Auto 2.1 % (0.9-7.0); Hematocrit 43.1 % (42.0-54.0); Hemoglobin 14.3 g/dL (14.0-18.0); Immature Granulocytes Abs Auto 0.03 10^3/uL (0.00-0.03); Immature Granulocytes Pct Auto 0.4 % (0.0-0.5); Lymphocytes Absolute Auto 1.5 10^3/uL (1.2-3.8); Lymphocytes Percent Auto 22.2 % (20.5-60.0); Mean Corpuscular HGB Conc 33.2 g/dL (29.9-35.2); Mean Corpuscular Hemoglobin 30.7 pg (25.9-34.0); Mean Corpuscular Volume 92.5 fL (80.0-94.0); Monocytes Absolute Auto 0.3 10^3/uL (0.3-0.8); Monocytes Percent Auto 4.9 % (1.7-12.0); Neutrophils Absolute Auto 4.7 10^3/uL (1.4-6.5); Platelet Count 248 10^3/uL (150-450); Red Blood Count 4.66 10^6/uL (4.70-6.10); Reticulocyte Pct Auto 1.28 % (0.60-3.10); White Blood Count 6.8 10^3/uL (4.0-11.0)
[2024-01-04 16:31] LABS: Erythrocyte Sedimentation Rate 19 mm/hr (<=20)
[2024-01-04 17:11] LABS: Alanine Aminotransferase 28 U/L (16-63); Albumin Globulin Ratio 0.8; Albumin Level 3.6 g/dL (3.4-5.0); Alkaline Phosphatase 104 U/L (46-116); Anion Gap 15.4; Aspartate Amino Transferase 18 U/L (15-37); BUN Creatinine Ratio 14.5; Bilirubin Total 0.7 mg/dL (0.2-1.0); C Reactive Protein <0.50 mg/dL (<=0.50); Calcium 9.5 mg/dL (8.5-10.1); Carbon Dioxide 25.6 mmol/L (21.0-32.0); Chloride 101 mmol/L (98-107); Estimated GFR (African America >60 (>=60); Estimated GFR (Non-African Ame >60 (>=60); Globulin 4.5 g/dL; Glucose 83 mg/dL (74-106); Lactate Dehydrogenase 141 U/L (85-227); Percent Iron Saturation 21.2 %; Sodium 138 mmol/L (136-145); Total Protein 8.1 g/dL (6.4-8.2)
[2024-01-07 15:09] LABS: Albumin 3.9 g/dL (2.9-4.4); Alpha-1-Globulin 0.2 g/dL (0.0-0.4); Alpha-2-Globulin 0.8 g/dL (0.4-1.0); Free Kappa Lt Chains,S 31.6 mg/L (3.3-19.4); Free Lambda Lt Chains,S 22.5 mg/L (5.7-26.3); Gamma Globulin 1.5 g/dL (0.4-1.8); Immunofixation Result, Serum Comment: (.); Immunoglobulin A, Qn, Serum 375 mg/dL (61-437); Immunoglobulin G, Qn, Serum 1520 mg/dL (603-1613); Immunoglobulin M, Qn, Serum 146 mg/dL (20-172); Protein, Total 7.3 g/dL (6.0-8.5)
== END 2024-01-18 23:59 | disposition home or self-care (01) ==
LOC: INF 07:39
PROVIDERS: PCP Family Medicine; Visit Provider Internal Medicine Hematology & Oncology
DX: D64.9 Anemia, unspecified (principal); R91.1 Solitary pulmonary nodule; R79.0 Abnormal level of blood mineral; Z13.71 Encounter for nonprocreative screening for genetic disease carrier status
CPT/HCPCS: 36415; 80053; 81256; 82728; 82784; 83521; 83540; 83550; 83615; 84155; 84165; 85025; 85652; 86140; G0463

== ENCOUNTER 2024-01-06 07:41 | Outpatient (OUT) | payer MEDICARE, OTHER, SELFPAY ==
--- NOTE | 2024-01-06 07:44 | US_ITS ---
The [address] [address] Patient Name: RAFFI CARTAGENA MRN: [id number] date: 1955 Sex: M Assigned Patient Location: US Current Patient Location: US Accession/Order Number: [id number] Exam Date: 01/06/2024 07:49 Report Date: 01/06/2024 08:39 At the request of: LOUIE MAXWELL Procedure: US abdomen limited EXAMINATION: US abdomen limited, US right upper quadrant HISTORY: Anemia D64.9, Abnormal Level Of Blood Mineral R79.0 COMPARISON: No relevant comparison available. TECHNIQUE: Transabdominal evaluation of the right upper quadrant. FINDINGS: LIVER: Normal size and echotexture. Color Doppler demonstrates patent hepatic veins. PORTAL VEIN: Duplex Doppler demonstrates normal hepatopetal flow pattern with flow velocity averaging 36 cm/s. GALLBLADDER: No visible gallstones, wall thickening, or pericholecystic free fluid. Negative sonographic Mckinnon's sign. BILIARY: No abnormal dilation or stones. Common bile duct diameter is within normal limits. PANCREASE: No visible mass, abnormal atrophy, or duct dilation. R. KIDNEY: Mild cortical thinning. No hydronephrosis. No visible mass or stones. Size: 10.2 x 4.3 x 5.2 cm SPLEEN: Normal size, contour, and echotexture. Color Doppler demonstrates blood flow within the spleen. Size: 11.6 x 10.7 x 4.4 cm US/US abdomen limited IMPRESSION: 1. Normal right upper quadrant ultrasound. 2. Unremarkable spleen. Electronically authenticated by: AUGUSTO MORRISON Date: 01/06/2024 08:39
--- OUTSIDE RECORDS SUMMARY | 2024-01-06 07:44 | XMS_ITS | CCD ---
Author Organization [facility] Care Team Providers Care Switchboard Inspector Name Role Phone DR JAMESON MACIAS Admitting Unavailable LAKISHA, DR MCKEON Attending Unavailable SUH, DR LISSETTE [...] SUH, DR LISSETTE Camacho Primary Care Unavailable GONZALES, DR EUGENIA Prado Consulting Unavailable ANGELI, DR LISSETTE Camacho Consulting Unavailable LISSETTE SUH Primary Care Physician MD Lissette Suh Primary Care Provider MD Jameson Macias Attending Provider [phone] Lissette Suh Unavailable [facility] Unavailable Jameson MACIAS Attending Unavailable Jameson MACIAS Attending Unavailable Allergies Allergy Classification Reported Allergen(s) Allergy Type Date of Onset Reaction(s) Facility (6 sources) patient allergy list reviewed by nurse or physicia Propensity to adverse reactions 3 Comment:Done [facility] Other (6 sources) Allergies Reconciled Propensity to adverse reactions Unknown [facility] Other Medications Current Medications Medication Drug Class(es) Dates Sig (Normalized) Sig (Original) acetaminophen 325 mg / HYDROcodone bitartrate 7.5 mg oral tablet (7 sources) Opioid Agonist Start: 11-19-2022 take 1 tablet by mouth once, then take 1 tablet by mouth every hour [place] 325 mg-7.5 mg oral tablet 1 tab(s), Oral, Once, 1 tab(s), Refill(s) 0, Take 1 hour prior to procedure. Don't drive or operate machinery while taking this medication. Have a tow truck driver to and from procedure., [facility] #[id number], 175, cm, 05/01/22 10:32:00 EDT, Height/Length Dosing,... Start Date: 11/19/22 Status: Ordered Start: 04-08-2022 take 1 tablet by tatum th once, then take 1 tablet by mouth every hour [place] 325 mg-7.5 mg oral tablet 1 tab(s), Oral, Once, 1 tab(s), Refill(s) 0, Take 1 hour prior to procedure. Don't drive or operate machinery while taking., [id number], 175, cm, 01/19/22 9:56:00 EDT, Height/Length Dosing, [...] Jun, Active ciprofloxacin 500 mg oral tablet (11 sources) Quinolone Antimicrobial Start: 11-19-2022 End: 11-26-2022 Cipro 500 mg Tab 500 mg = 1 tab(s), Oral, q12hr, Start 3 days prior to procedure, X 7 day(s), # 14 tab(s), Refills(s) 0, Pharmacy: [facility] #[id number], 175, cm, 05/01/22 10:32:00 EDT, Height/Length Dosing, 55.5, kg, 05/01/22 10:32:00 EDT, Weight Dosing Start Date: 11/19/22 Stop Date: 11/26/22 Status: Ordered Start: 04-08-2022 End: 04-15-2022 Cipro 500 mg Tab 500 mg = 1 tab(s), Oral, q12hr, Start 3 days prior to procedure, X 7 day(s), # 14 tab(s), Refills(s) 0, Pharmacy: [facility] #[id number], 175, cm, 01/19/22 9:56:00 EDT, Height/Length Dosing, 55.5, kg, 01/19/22 9:56:00 EDT, Weight Dosing Start Date: 04/08/22 Stop Date: 04/15/22 Status: Ordered take 1 tablet by tatum th every twelve hours Ciprofloxacin HCl 250 MG 1 tablet Orally every 12 hrs for 5 days Active tamsulosin hydrochloride 0.4 mg oral capsule (9 sources) alpha-Adrenergic Traci Start: 12-20-2023 take 1 capsule by mouth once daily tamsulosin 0.4 mg Cap 0.4 mg = 1 cap(s), Oral, Daily, # 90 cap(s), Refills(s) 3, Pharmacy: [facility] #[id number], 172, cm, 12/20/23 9:07:00 EDT, Height/Length Dosing, 55, kg, 12/20/23 9:07:00 EDT, Weight Dosing Start Date: 12/20/23 Status: Ordered Start: 12-22-2021 End: 11-18-2023 take 1 capsule by mouth once daily Flomax 0.4 mg Cap 0.4 mg = 1 cap(s), Oral, Daily, X 30 day(s), # 30 cap(s), Refills(s) 11, Pharmacy: [facility] #[id number], 172, cm, 11/23/22 10:42:00 EST, Height/Length Dosing, 55, kg, 11/23/22 10:42:00 EST, Weight Dosing Start Date: 11/23/22 Stop Date: 11/18/23 Status: Ordered Completed/Discontinued Medications Medication Drug Class(es) Dates Sig (Normalized) Sig (Original) sulfamethoxazole 800 mg / trimethoprim 160 mg oral tablet (4 sources) Dihydrofolate Reductase Inhibitor Antibacterial, Sulfonamide Antimicrobial Sulfamethoxazol e-Trimethoprim 800-160 MG take 1 tablet by mouth twice a day for 3 WEEKS Oral for 21 Days Not-Taking tadalafil 5 mg oral tablet (20 sources) Phosphodiesterase 5 Inhibitor Start: 12-20-2023 take 1 tablet by mouth every hour tadalafil 5 mg oral tablet 5 mg = 1 tab(s), Oral, As Directed, Take one tab 1 hr prior to sexual activity., # 90 tab(s), Refills(s) 3, Pharmacy: [facility] #[id number], 172, cm, 12/20/23 9:07:00 EDT, Height/Length Dosing, 55, kg, 12/20/23 9:07:00 EDT, Weight Dosing Start Date: 12/20/23 Status: Ordered Start: 01-19-2022 take 1 tablet by tatum th once daily tadalafil 5 mg oral tablet 5 mg = 1 tab(s), Oral, Daily, # 90 tab(s), Refills(s) 3, Pharmacy: [id number], 175, cm, 01/19/22 9:56:00 EDT, Height/Length Dosing, 55.5, kg, 01/19/22 9:56:00 EDT, Weight Dosing Start Date: 01/19/22 Status: Ordered Problems Active Problems Problem Classification Problem Date Documented Date Episodic/Chronic Cancer of prostate (3 sources) Carcinoma in situ of prostate; Translations: [Carcinoma in situ of prostate] Onset: 05-01-2022 Chronic Fever of unknown origin (2 sources) Fever, unspecified Episodic Genitourinary symptoms and ill-defined conditions (2 sources) Difficulty passing urine; Translations: [Other difficulties with micturition] Onset: 12-20-2023 Episodic Hyperplasia of prostate (20 sources) Benign prostatic hyperplasia without lower urinary tract symptoms; Translations: [Benign prostatic hypertrophy without outflow obstruction] Onset: 10-15-2015 Chronic Inflammatory conditions of male genital organs (7 sources) Prostatitis; Translations: [Inflammatory disease of prostate, unspecified] Onset: 01-19-2022 Episodic Miscellaneous mental health disorders (6 sources) Psychosexual dysfunction associated with inhibited sexual excitement; Translations: [Psychosexual dysfunction with inhibited sexual excitement] Onset: 02-19-2015 Chronic Other connective tissue disease (15 sources) Pain in right foot; Translations: [Pain [...] left ear Episodic Other male genital disorders (18 sources) Male erectile dysfunction, unspecified; Translations: [Erectile dysfunction] Onset: 01-19-2022 Chronic Other male genital disorders (3 sources) Prostatic intraepithelial neoplasia 05-01-2022 Episodic Other screening for suspected conditions (not mental disorders or infectious disease) (20 sources) Encounter for screening for malignant neoplasm of prostate; Translations: [Raised prostate specific antigen] Onset: 11-12-2021 Episodic Retinal detachments; defects; vascular occlusion; and retinopathy (6 sources) Degenerative disorder of macula ; Translations: [Unspecified macular degeneration] Onset: 06-03-2017 Chronic Spondylosis; intervertebral disc disorders; other back problems (20 sources) Degeneration of lumbosacral intervertebral disc; Translations: [Other intervertebral disc degeneration, lumbosacral region] Onset: 05-04-2019 Chronic Spondylosis; intervertebral disc disorders; other back problems (20 sources) Lumbar radiculopathy; Translations: [Radiculopathy, lumbar region] Onset: 09-05-2015 Episodic Substance-related disorders (11 sources) Smoker; Translations: [Nicotine dependence] Onset: 05-04-2019 12-22-2021 Chronic Comment on above: Added secondary to d ocumentation in Social History. Past or Other Problems Problem Classification Problem Date Documented Da te Episodic/Chronic Immunizations and screening for infectious disease (6 sources) Vaccination given; Translations: [Encounter for immunization] Onset: 07-23-2014 Episodic Other connective tissue disease (4 sources) Pain in right foot; Translations: [PAIN IN RIGHT FOOT] Onset: 05-28-2021 Episodic Other ear and sense organ disorders (6 sources) Impacted cerumen; Translations: [Impacted cerumen, unspecified ear] Onset: 07-10-2013 Episodic Other non-traumatic joint disorders (6 sources) Shoulder joint pain; Translations: [Pain in right shoulder] Onset: 01-28-2016 Episodic Other nutritional; endocrine; and metabolic disorders (6 sources) Body mass index less than 20; Translations: [Body mass index (BMI) 19.9 or less, adult] Onset: 05-04-2019 Episodic Other nutritional; endocrine; and metabolic disorders (6 sources) Underweight; Translations: [Underweight] Onset: 05-04-2019 Episodic Results Test Name Value Interpretation Reference Range Facility Ambulatory Visit Summaryon 0 12-20-2023 Ambulatory Visit Summary MATHEW, RAFFI :1955 Visit Date:12/20/2023 Ambulatory Visit Instructions Your Diagnosis PIN III (prostatic intraepithelial neoplasia III) BPH (benign prostatic hyperplasia) Infrequent urination ED (erectile dysfunction) Your Care Team Attending Physician - Jameson MACIAS MD Primary Care Physician - LISSETTE SUH MD This Is Your Medications List tadalafil (tadalafil 5 mg oral tablet) tamsulosin (tamsulosin 0.4 mg Cap) Procedures Performed Transrectal biopsy of prostate using ultrasound (US) guidance (12/01/2022), Transrectal biopsy of prostate using ultrasound (US) guidance (04/14/2022), Bilateral inguinal hernia repair (07/10/2013), Colonoscopy (2011). Discharge Vitals Heart Rate (Peripheral) 82 Respiratory Rate 16 Blood Pressure 127/80 Height 172 cm Height 68 in Weight 55 kg Weight 121 lb BMI 18.59 What to do next Scheduled Follow-Up Appointments Wednesday 9:45 AM EDT With: LAKISHA HOSUTON, Jameson Kay Where: [facility] Patient Educationon 12-20-19 24 Patient Education Oncology Prostate Cancer Screening Prostate cancer screening is testing that is done to check for the presence of prostate cancer in men. The prostate gland is a walnut-sized gland that is located below the bladder and in front of the rectum in males. The function of the prostate is to add fluid to semen during ejaculation. Prostate cancer is one of the most common types of cancer in men. Who should have prostate cancer screening? Screening recommendations vary based on age and other risk factors, as well as between the professional organizations who make the recommendations. In general, screening is recommended if: ? You are age 50 to 70 and have an average risk for prostate cancer. You should talk with your health care provider about your need for screening and how often screening should be done. Because most prostate cancers are slow growing and will not cause , screening in this age group is generally reserved for men who have a 10- to 15-year life expectancy. ? You are younger than age 50, and you have these risk factors: ? Having a father, brother, or uncle who has been diagnosed with prostate cancer. The risk is higher if your family member's cancer occurred at an early age or if you have multiple family members with prostate cancer at an early age. ? Being a male who is Black or is of [place] or sub-Saharan descent. In general, screening is not recommended if: ? You are younger than age 40. ? You are between the ages of 40 and 49 and you have no risk factors. ? You are 70 years of age or older. At this age, the risks that screening can cause are greater than the benefits that it may provide. If you are at high risk for prostate cancer, your health care provider may recommend that you have screenings more often or that you start screening at a younger age. How is screening for prostate cancer done? The recommended prostate cancer screening test is a blood test called the prostate-specific antigen (PSA) test. PSA is a protein that is made in the prostate. As you age, your prostate naturally produces more PSA. Abnormally high PSA levels may be caused by: ? Prostate cancer. ? An enlarged prostate that is not caused by cancer (benign prostatic hyperplasia, or BPH). This condition is very common in older men. ? A prostate gland infection (prostatitis) or urinary tract infection. ? Certain medicines such as male hormones (like testosterone) or other medicines that raise testosterone levels. A rectal exam may be done as part of prostate cancer screening to help provide information about the size of your prostate gland. When a rectal exam is performed, it should be done after the PSA level is drawn to avoid any effect on the results. Depending on the PSA results, you may need more tests, such as: ? A physical exam to check the size of your prostate gland, if not done as part of screening. ? Blood and imaging tests. ? A procedure to remove tissue samples from your prostate gland for testing (biopsy). This is the only way to know for certain if you have prostate cancer. What are the benefits of prostate cancer screening? ? Screening can help to identify cancer at an early stage, before symptoms start and when the cancer can be treated more easily. ? There is a small chance that screening may lower your risk of dying from prostate cancer. The chance is small because prostate cancer is a slow-growing cancer, and most men with prostate cancer from a different cause. What are the risks of prostate cancer screening? The main risk of prostate cancer screening is diagnosing and treating prostate cancer that would never have caused any symptoms or problems. This is called overdiagnosisand overtreatment. PSA screening cannot tell you if your PSA is high due to cancer or a different cause. A prostate biopsy is the only procedure to diagnose prostate cancer. Even the results of a biopsy may not tell you if your cancer needs to be treated. Slow-growing prostate cancer may not need any treatment other than monitoring, so diagnosing and treating it may cause unnecessary stress or other side effects. Questions to ask your health care provider ? When should I start prostate cancer screening? ? What is my risk for prostate cancer? ? How often do I need screening? ? What type of screening tests do I need? ? How do I get my test results? ? What do my results mean? ? Do I need treatment? Where to find more information ? The [place] [employer]: www.cancer.org ? [place] [employer]: www.auanet.org Contact a health care provider if: ? You have difficulty urinating. ? You have pain when you urinate or ejaculate. ? You have blood in your urine or semen. ? You have pain in your back or in the area of your prostate. Summary ? Prostate cancer is a common type of cancer in men. The prostate gland is located below the bladder and in front of the rectum. This gland adds flu (more content not included)... Normal [facility] Urology Office/Clinic Noteon 12-20-2023 Urology Office/Clinic Note Chief Complaint 1yr PSA HPI Staff 1yr PSA DX: PIN III, BPH & ED Tadalafil 5 mg PRN. PSA 11/16/23- 5.75 Satisfied with Tadalafil therapy. Per last encounter, pt also taking Tamsulosin. States he stopped taking about 1 month ago. Forgot to refill Denies pain/burning and blood in urine. No difference in urinary stream w/o Tamsulosin. No concerns at this time. History of Present Illness Tests reviewed: reviewed UA, PSA I have reviewed the previous health record information and history for this patient from Dr. Macias. I have reviewed and verified the staff HPI to be accurate for this encounter. Review of Systems PHQ Score Initial Depression Screen Score: 0 SCORE ROS - Provider Constitutional: denies weight loss, denies hot flashes. Eyes: denies eye problems. Gastrointestinal: denies nausea, denies vomiting. Cardiovascular: denies chest pain or angina. Integumentary: no dryness Musculoskeletal: denies musculoskeletal symptoms. ENMT: denies otolaryngeal symptoms. Respiratory: no shortness of breath. Heme/Lymph: denies easy bleeding tendency, denies easy bruising tendency. Psychiatric: no confusion, no anxiety. Genitourinary: See HPI. Physical Exam Vitals & Measurements HR: 82(Peripheral) RR: 16 BP: 127/80 HT: 68 in HT: 172 cm WT: 55 kg WT: 121 lb BMI: 18.59 General Appearance: alert, no distress, well nourished, well developed male. Genitourinary: normal scrotum, normal testes, normal urethra, normal epididymis, normal vas deferens/spermatic cord. Flank Pain: none. Bladder: nonpalpable. Prostate: normal prostate, estimated weight 50 gms, no hard nodule observed. Assessment/Plan 1. 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 S/p TRUS/bx 04/14/22. Path report shows SIXTO in the right lateral base. S/p TRUS/bx 12/01/22. Pathology neg for malignancy. Patchy chronic inflammation left lateral apex and left mid. SARA: 50g, benign Discussed current PSA is the highest on record but he has been close to this level in the past. Has had two negative biopsies in the last 2 years. Recent PSA rise likely due to prostatitis. Will monitor PSA more closely. -PSA in 6 mos 2. BPH (benign prostatic hyperplasia) (N40.0: Benign prostatic hyperplasia without lower urinary tract symptoms) Stopped taking Tamsulosin 0.4mg qd 1 month ago due to forgetting to refill. Has not noticed any changes in his urinary stream. Feels he empties well. UA today shows trace-lysed blood and trace leuks. Denies any pain/burning with urination or visible blood. Did advise pt UA does appear suspicious for a prostate infection which can contribute to PSA rise. States he voids infrequently depending on fluid intake. Educated pt he is likely not emptying often enough which contributes to infection. Pt to start timed voids q2-3hr during waking hours whether the urge to void is present or not. Also recommended increased fluid intake -Timed voids q3hrs -Increase fluid intake by 3-4 16oz bottles of water 3. Infrequent urination (R39.198: Other difficulties with micturition) See #2. 4. ED (erectile dysfunction) (N52.9: Male erectile dysfunction, unspecified) Tadalafil 5mg prn. No concerns or indication for dosage changes. Refills sent today. Follow-up With When Contact Information LAKISHA HOUSTON, Jameson Kay, URL [facility] [address], [place] [address] [phone] Additional Instructions: 6 mos w/ PSA Patient Education Prostate Cancer Screening Steps to Quit Smoking I, Zoe Llanos, personally scribed for Dr. Macias on 12/20/2023 09:56:06. . Documentation recorded by the scribe, Zoe Llanos, accurately reflects the services(s) I performed and decisions made by me. Authenticated by Dr. Macias on 12/20/2023 09:59:27. Problem List/Past Medical History Ongoing BPH (benign prostatic hyperplasia) ED (erectile dysfunction) Elevated PSA PIN III (prostatic intraepithelial neoplasia III) Prostatitis Smoker Historical No qualifying data Procedure/Surgical History Transrectal biopsy of prostate using ultrasound (US) guidance (12/01/2022), Transrectal biopsy of prostate using ultrasound (US) guidance (04/14/2022), Bilateral inguinal hernia repair (07/10/2013), Colonoscopy (2011). Medications tadalafil 5 mg oral tablet, 5 mg= 1 tab(s), Oral, Daily, 3 refills Allergies No Known Allergies Social History Tobacco 10 or more cigarettes (1/2 pack or more)/day in last 30 days Tobacco Use:. Never Smokeless Tobacco Use:. Cigarettes, Household tobacco concerns: No. Yes, 12/20/2023 Family History Cancer: Mother and Brother. Heart disease: Mother, Father and Brother. Immunizations Vaccine Date Status SARS-CoV-2 (COVID-19) mRNA BNT-162b2 vax 09/09/2021 Recorded SARS-CoV-2 (COVID-19) mRNA BNT-162b2 (more content not included)... Normal [facility] Comment on above: Result Comment: Elec tronically Signed By: Jameson MACIAS MD\.br\Date and Time Signed: 12/20/23 09:59 EDT\.br\Electronically Co-Signed By: Zoe Llanos\.br\Date and Time Co-Signed: 12/20/23 09:56 EDT\.br\Electronically Co-Signed By: AUBRIE PEDRO PA-C Creatinine (Bld) [Mass/Vol]O rdered By: Jameson Macias on 02-10-2022 Creatinine [Mass/Vol] 1.1 mg/dL 0.6-1.3 [facility] Comment on above: ER/ESD physician is notified/shown all ISTAT results. Critical values may be confirmed by laboratory testing if deemed necessary by ER attending doctor. ISTAT XRay CREon 02-10-2022 Creatinine [Mass/Vol] 1.1 mg/dL Normal 0.6-1.3 [facility] Comment on above: Result Comment: ER/E SD physician is notified/shown all ISTAT results. Critical values may be confirmed by laboratory testing if deemed necessary by ER attending doctor. Performed By: #### I SCRE #### [facility] [address] [place] [address] Point of Care testing , ISTAT GFR ( > 60 [facility] Comment on above: Result Comment: GFR estimated reference range: According to KDOQI guidelines, <60 ml/min/1.73m2 is sufficient to diagnose a patient with chronic kidney disease. PERFORMED BY: [place] [address] PATHOLOGIST SONG LYRICIST SALVADOR GRAYSON M.D. Performed By: #### I SCRE #### [facility] [address] [place] [address] Point of Care testing , ISTAT GFR (Non- Am > 60 [facility] Comment on above: Performed By: #### I SCRE #### [facility] [address] [place] [address] Point of Care testing , MR prostate wo/w conon 02-10 MR prostate wo/w con [facility] [place] [address] [place] [address] MRI Report Signed Patient: Raffi Mathew MR#: [id number] : 1955 Acct:[id number] Age/Sex: 66 / M ADM Date: 02/10/22 Loc: MR Room: Type: [facility] Attending Dr: Jameson Macias MD Ordering Provider: [...] Branham Jr., D.O.02/10/2022 9:34 AM Dictation Location: [facility] Transcribed By: [facility] 02/10/2234 Dictated By: Alfredo Branham Jr, DO 02/10/2226 Signed By: 02/10/2234 Normal [facility] No Panel InformationOrdered By: Jameson Macias on 02-10-2022 POC Estimated GFR > 60 [facility] Comment on above: GFR estimated refere nce range: According to KDOQI guidelines, <60 ml/min/1.73m2 is sufficient to diagnose a patient with chronic kidney disease. POC Estimated GFR Non- Amer > 60 [facility] Vital Signs Date Time Vital Sign Value Performing Clinician Facility 12-20-2023 09:05-0400 Blood Pressure Location Jameson MACIAS [facility] 12-20-2023 09:05-0400 Diastolic blood pressure 80 mm[Hg] Jameson MACIAS [facility] 12-20-2023 09:05-0400 Heart rate 82 /min Jameson MACIAS [facility] 12-20-2023 09:05-0400 Respiratory rate 16 /min Jameson MACIAS [facility] 12-20-2023 09:05-0400 Systolic blood pressure 127 mm[Hg] Jameson MACIAS [facility] 07-16-2023 09:35-0400 Body height 170.18 cm [facility] Other [facility] Other 07-16-2023 09:35-0400 Body mass index (BMI) [Ratio] 18.73 kg/m2 [facility] Other [facility] Other 07-16-2023 09:35-0400 Body temperature 98 [degF] [facility] Other [facility] Other 07-16-2023 09:35-0400 Body weight 54.25 kg [facility] Other [facility] Other 07-16-2023 09:35-0400 Diastolic blood pressure 76 mm[Hg] [facility] Other [facility] Other 07-16-2023 09:35-0400 Respiratory rate 18 /min [facility] Other [facility] Other 07-16-2023 09:35-0400 SaO2% (BldA) [Mass fraction] 99 % [facility] Other [facility] Other 07-16-2023 09:35-0400 Systolic blood pressure 134 mm[Hg] [facility] Other [facility] Other 11-23-2022 10:37-0500 Blood Pressure Location Jameson MACIAS [facility] 11-23-2022 10:37-0500 Diastolic blood pressure 73 mm[Hg] Jameson MACIAS [facility] 11-23-2022 10:37-0500 Heart rate 72 /min Jameson MACIAS [facility] 11-23-2022 10:37-0500 Systolic blood pressure 111 mm[Hg] Jameson MACIAS [facility] 10-14-2022 10:45-0500 Body height 170.18 cm [facility] Other [facility] Other 10-14-2022 10:45-0500 Body mass index (BMI) [Ratio] 19.58 kg/m2 [facility] Other [facility] Other 10-14-2022 10:45-0500 Body temperature 98.2 [degF] [facility] Other [facility] Other 10-14-2022 10:45-0500 Body weight 56.7 kg [facility] Other [facility] Other 01-25-2023 10:45-0500 Diastolic blood pressure 87 mm[Hg] [facility] Other [facility] Other 10-14-2022 10:45-0500 Respiratory rate 18 /min [facility] Other [facility] Other 10-14-2022 10:45-0500 SaO2% (BldA) [Mass fraction] 97 % [facility] Other [facility] Other 10-14-2022 10:45-0500 Systolic blood pressure 140 mm[Hg] [facility] Other [facility] Other 10-09-2022 10:00-0500 Body height 167.64 cm Lissette Suh Other [facility] Other 10-09-2022 10:00-0500 Body mass index (BMI) [Ratio] 19.53 kg/m2 Lissette Suh Other [facility] Other 10-09-2022 10:00-0500 Body weight 54.89 kg Lissette Suh Other [facility] Other 10-09-2022 10:00-0500 Diastolic blood pressure 84 mm[Hg] Lissette Suh Other [facility] Other 10-09-2022 10:00-0500 SaO2% (BldA) [Mass fraction] 99 % Lissette Suh Other [facility] Other 10-09-2022 10:00-0500 Systolic blood pressure 122 mm[Hg] Lissette Suh Other [facility] Other 02-10-2022 06:44-0400 Body height 175.26 cm MD Lissette Suh Work Phone: [facility] 02-10-2022 06:44-0400 Body weight 55.33 kg MD Lissette Suh Work Phone: [facility] 01-19-2022 09:50-0400 Blood Pressure Location Jameson MACIAS [facility] 01-19-2022 09:50-0400 Diastolic blood pressure 73 mm[Hg] Jamesonelmira MACIAS [facility] 01-19-2022 09:50-0400 Heart rate 64 /min Jamesonelmira MACIAS [facility] 01-19-2022 09:50-0400 Respiratory rate 16 /min Jamesonelmira MACIAS [facility] 01-19-2022 09:50-0400 Systolic blood pressure 131 mm[Hg] Jameson MACIAS [facility] [employer] [employer] Encounters Encounter Date Encounter Type Care Provider Facility Start: 06-23-2024 ambulatory Jameson MACIAS Facili ty:[facility] Start: 12-20-2023 End: 12-21-2023 ambulatory Jameson MACIAS Facility:[facility] [place] Start: 12-20-2023 End: 12-20-2023 Patient encounter procedure Jameson MACIAS [facility] Start: 10-25-2023 End: 10-25-2023 ambulatory Lissette Suh Other [facility] Other Start: 10-25-2023 Telephone encounter Lissette Angeli [facility] Start: 10-22-2023 End: 10-22-2023 ambulatory Lissette Suh Other [facility] Other Start: 10-22-2023 Telephone encounter Lissette Suh [facility] Start: 10-21-2023 (Televisit) Televisit Lissette Angeli [facility] Start: 10-21-2023 End: 10-21-2023 ambulatory Lissette Angeli Other [facility] Other Start: 07-16-2023 End: 07-16-2023 ambulatory [facility] Other [facility] Other Start: 07-16-2023 Office outpatient vi sit 15 minutes [facility] Nilsa [facility] Start: 02-23-2023 End: 02-23-2023 ambulatory Lissette Suh Other [facility] Other Start: 02-23-2023 Telephone encounter Lissette Angeli [facility] Start: 11-23-2022 End: 11-23-2022 Patient encounter procedure Jameson MACIAS [facility] Start: 10-14-2022 End: 10-14-2022 ambulatory [facility] Other [facility] Other Start: 10-14-2022 Office outpatient vi sit 15 minutes [facility]cy Nilsa [facility] Start: 10-09-2022 End: 10-09-2022 ambulatory Lissette Suh Other [facility] Other Start: 10-09-2022 Office outpatient vi sit 15 minutes Lissette Suh [facility] Start: 05-01-2022 End: 05-01-2022 Patient encounter procedure Jameson MACIAS [facility] Start: 04-14-2022 End: 04-14-2022 Patient encounter procedure Jameson MACIAS [facility] Start: 02-10-2022 End: 02-10-2022 Patient encounter procedure MD Lissette Suh Work Phone: [facility] Start: 01-19-2022 End: 01-19-2022 Patient encounter procedure Jameson MACIAS [facility] Start: 01-12-2022 End: 01-13-[address] JAMESON MACIAS Facility:[facility] Start: 11-12-2021 End: 11-13-[address] LISSETTE SUH Facility:[facility] Start: 05-28-2021 End: 05-29-[address] LISSETTE SUH Facility:[facility] Procedures Date Procedure Procedure Detail Performing Clinician Start: 12-01-2022 Transrectal biopsy o f prostate using ultrasound guidance Jameson MACIAS Start: 04-14-2022 Transrectal biopsy o f prostate using ultrasound guidance Jameson MACIAS Start: 04-14-2022 Ultrasonography guid ed transrectal cryoablation of prostate Jameson MACIAS Start: 02-10-2022 MR prostate wo/w con MD Lissette Suh Work Phone: Start: 01-12-[address] JUSTIN MACIAS Comment on above: Performed By: #### P SAD #### [facility] [address] [place] [address] Dr. Edmond Gamble Start: 11-12-[address] UJSTIN MACIAS Comment on above: Performed By: #### P SASC #### [facility] [address] [place] [address] Dr. Edmond Gamble Start: 03-27-2016 Removal of suture Pamel a Nilsa Other Start: 10-04-2013 General examination of patient [facility] Other Start: 07-10-2013 Bilateral inguinal h ernia repair Jameson MACIAS Start: 09-20-2011 Colonoscopy Jameson YOLANDA LLAMASKoby Screening for malign ant neoplasm of prostate [facility] Other Immunizations Immunization Date Immunization Notes Care Provider Fa cility 09-09-2021 SARS-CoV-2 (COVID-19 ) mRNA BNT-162b2 vax Jameson MACIAS [facility] 01-21-2021 SARS-CoV-2 (COVID-19 ) mRNA BNT-162b2 vax Jameson MACIAS [facility] 12-31-2020 SARS-CoV-2 (COVID-19 ) mRNA BNT-162b2 vax Jameson MACIAS [facility] 10-13-2015 zoster vaccine, live Jameson MACIAS [facility] 07-02-2015 tetanus and diphther ia toxoids, adsorbed, preservative free, for adult use (5 Lf of tetanus toxoid and 2 Lf of diphtheria toxoid) [facility] Other [facility] Other 07-23-2014 tetanus and diphther ia toxoids, adsorbed, preservative free, for adult use (5 Lf of tetanus toxoid and 2 Lf of diphtheria toxoid) [facility] Other [facility] Other Payers Date Payer Category Payer Unknown [id number] [id number] 1959 Medicare [id number] 1959 Unknown [id number] 1955 Unknown [id number] 2.16.84 [id number] 1955 Unknown [id number] 2.16.84 [id number] 1955 Unknown [id number] 2.16.84 [id number] 1955 Unknown [id number] 2.16.8 [id number] 1955 Unknown [id number] 2.16.8 [id number] Medicare Medicare [id number] Self-pay Self Pay [id number] Unknown [facility] [id number] Social History Date Type Detail Facility Start: 12-22-2021 Tobacco smoking status Smoker (cristiani gianna) [facility] Sex Assigned At Male [facility] Start: 1955 Sex Assigned At Male F [facility] Start: 05-01-2022 End: 12-20-2023 Tobacco smoking status Heavy tobacco smoker (finding) [facility] Tobacco smoking status Never [facility] Functional Status Date Assessment Result Facility 12-20-2023 Functional Status N/A [facility] 11-23-2022 Functional Status N/A [facility] 05-01-2022 Functional Status N/A [facility] Clinical Notes 05-28-2021 to 12-20-2023 Note Date & Type Note Facility 12-20-2023 Hospital Discharge instructions Patient Education 12/20/2023 09:44:22 Prostate Cancer Screening Prostate Cancer Screening Prostate cancer screening is testing that is done to check for the presence of prostate cancer in men. The prostate gland is a walnut-sized gland that is located below the bladder and in front of the rectum in males. The function of the prostate is to add fluid to semen during ejaculation. Prostate cancer is one of the most common types of cancer in men. Who should have prostate cancer screening? Screening recommendations vary based on age and other risk factors, as well as between the professional organizations who make the recommendations. In general, screening is recommended if: You are age 50 to 70 and have an average risk for prostate cancer. You should talk with your health care provider about your need for screening and how often screening should be done. Because most prostate cancers are slow growing and will not cause , screening in this age group is generally reserved for men who have a 10- to 15-year life expectancy. You are younger than age 50, and you have these risk factors: ?Having a father, brother, or uncle who has been diagnosed with prostate cancer. The risk is higher if your family member's cancer occurred at an early age or if you have multiple family members with prostate cancer at an early age. ?Being a male who is Black or is of [place] or sub-Saharan descent. In general, screening is not recommended if: You are younger than age 40. You are between the ages of 40 and 49 and you have no risk factors. You are 70 years of age or older. At this age, the risks that screening can cause are greater than the benefits that it may provide. If you are at high risk for prostate cancer, your health care provider may recommend that you have screenings more often or that you start screening at a younger age. How is screening for prostate cancer done? The recommended prostate cancer screening test is a blood test called the prostate-specific antigen (PSA) test. PSA is a protein that is made in the prostate. As you age, your prostate naturally produces more PSA. Abnormally high PSA levels may be caused by: Prostate cancer. An enlarged prostate that is not caused by cancer (benign prostatic hyperplasia, or BPH). This condition is very common in older men. A prostate gland infection (prostatitis) or urinary tract infection. Certain medicines such as male hormones (like testosterone) or other medicines that raise testosterone levels. A rectal exam may be done as part of prostate cancer screening to help provide information about the size of your prostate gland. When a rectal exam is performed, it should be done after the PSA level is drawn to avoid any effect on the results. Depending on the PSA results, you may need more tests, such as: A physical exam to check the size of your prostate gland, if not done as part of screening. Blood and imaging tests. A procedure to remove tissue samples from your prostate gland for testing (biopsy). This is the only way to know for certain if you have prostate cancer. What are the benefits of prostate cancer screening? Screening can help to identify cancer at an early stage, before symptoms start and when the cancer can be treated more easily. There is a small chance that screening may lower your risk of dying from prostate cancer. The chance is small because prostate cancer is a slow-growing cancer, and most men with prostate cancer from a different cause. What are the risks of prostate cancer screening? The main risk of prostate cancer screening is diagnosing and treating prostate cancer that would never have caused any symptoms or problems. This is called overdiagnosisand overtreatment. PSA screening cannot tell you if your PSA is high due to cancer or a different cause. A prostate biopsy is the only procedure to diagnose prostate cancer. Even the results of a biopsy may not tell you if your cancer needs to be treated. Slow-growing prostate cancer may not need any treatment other than monitoring, so diagnosing and treating it may cause unnecessary stress or other side effects. Questions to ask your health care provider When should I start prostate cancer screening? What is my risk for prostate cancer? How often do I need screening? What type of screening tests do I need? How do I get my test results? What do my results mean? Do I need treatment? Where to find more information The [place] [employer]: www.cancer.org [place] [employer]: www.auanet.org Contact a health care provider if: You have difficulty urinating. You have pain when you urinate or ejaculate. You have blood in your urine or semen. You have pain in your back or in the area of your prostate. Summary Prostate cancer is a common type of cancer in men. The prostate gland is located below the bladder and in front of the rectum. This gland adds fluid to semen during ejaculation. Prostate cancer screening may identify cancer at an early stage, when the cancer can be treated more easily and is less likely to have spread to other areas of the body. The prostate-specific antigen (PSA) test is the recommended screening test for prostate cancer, but it has associated risks. Discuss the risks and benefits of prostate cancer screening with your health care provider. If you are age 70 or older, the risks that screening can cause are greater than the benefits that it may provide. This information is not intended to replace advice given to you by your health care provider. Make sure you discuss any questions you have with your health care provider. Document Revised: 03/02/2022 Document Reviewed: 03/02/2022 [employer] Patient Education 2022 [employer]. 12/20/2023 08:59:38 Steps to Quit Smoking Steps to Quit Smoking Smoking tobacco is the leading cause of preventable . It can affect almost every organ in the body. Smoking puts you and those around you at risk for developing many serious chronic diseases. Quitting smoking can be very challenging. Do not get discouraged if you are not successful the first time. Some people need to make many attempts to quit before they achieve long-term success. Do your best to stick to your quit plan, and talk with your health care provider if you have any questions or concerns. How do I get ready to quit? When you decide to quit smoking, create a plan to help you succeed. Before you quit: Pick a date to quit. Set a date within the next 2 weeks to give you time to prepare. Write down the reasons why you are quitting. Keep this list in places where you will see it often. Tell your family, friends, and co-workers that you are quitting. Support from people you are close to can make quitting easier. Talk with your health care provider about your options for quitting smoking. Find out what treatment options are covered by your health insurance. Identify people, places, things, and activities that make you want to smoke (triggers). Avoid them. What first steps can I take to quit smoking? Throw away all cigarettes at home, at work, and in your car. Throw away smoking accessories, such as ashtrays and lighters. Clean your car. Make sure to empty the ashtray. Clean your home, including curtains and carpets. What strategies can I use to quit smoking? Talk with your health care provider about combining strategies, such as taking medicines while you are also receiving in-person counseling. Using these two strategies together makes you more likely to succeed in quitting than if you used either strategy on its own. If you are or , talk with your health care provider about finding counseling or other support strategies to quit smoking. Do not take medicine to help you quit smoking unless your health care provider tells you to. Quit right away Quit smoking completely, instead of gradually reducing how much you smoke over a period of time. Stopping smoking right away may be more successful than gradually quitting. Attend in-person counseling to help you build problem-solving skills. You are more likely to succeed in quitting if you attend counseling sessions regularly. Even short sessions of 10 minutes can be effective. Take medicine You may take medicines to help you quit smoking. Some medicines require a prescription. You can also purchase vybv-zyg-jxzbklv medicines. Medicines may have nicotine in them to replace the nicotine in cigarettes. Medicines may: Help to stop cravings. Help to relieve withdrawal symptoms. Your health care provider may recommend: Nicotine patches, gum, or lozenges. Nicotine inhalers or sprays. Non-nicotine medicine that you take by mouth. Find resources Find resources and support systems that can help you quit smoking and remain smoke-free after you quit. These resources are most helpful when you use them often. They include: Online chats with a counselor. Telephone quitlines. Printed self-help materials. Support groups or group counseling. Text messaging programs. Mobile phone apps or applications. Use apps that can help you stick to your quit plan by providing reminders, tips, and encouragement. Examples of free services include Quit Guide from the CDC and smokefree.gov What can I do to make it easier to quit? Reach out to your family and friends for support and encouragement. Call telephone quitlines, such as 2-657-DRDP-NOW, reach out to support groups, or work with a counselor for support. Ask people who smoke to avoid smoking around you. Avoid places that trigger you to smoke, such as bars, parties, or smoke-break areas at work. Spend time with people who do not smoke. Lessen the stress in your life. Stress can be a smoking trigger for some people. To lessen stress, try: ?Exercising regularly. ?Doing deep-breathing exercises. ?Doing yoga. ?Meditating. What benefits will I see if I quit smoking? Over time, you should start to see positive results, such as: Improved sense of smell and taste. Decreased coughing and sore throat. Slower heart rate. Lower blood pressure. Clearer and healthier skin. The ability to breathe more easily. Fewer sick days. Summary Quitting smoking can be very challenging. Do not get discouraged if you are not successful the first time. Some people need to make many attempts to quit before they achieve long-term success. When you decide to quit smoking, create a plan to help you succeed. Quit smoking right away, not slowly over a period of time. Find resources and support systems that can help you quit smoking and remain smoke-free after you quit. This information is not intended to replace advice given to you by your health care provider. Make sure you discuss any questions you have with your health care provider. Document Revised: 08/28/2022 Document Reviewed: 08/28/2022 [employer] Patient Education 2022 [employer]. Follow Up Care 12/18/2022 12:44:00 With:LAKISHA HOUSTON, Jameson Kay, URL Address: [facility] [address], [place] [address] [phone] When: Unknown [facility] Luci 10-21-2023 Evaluation note Encounter Date Diagnosis Assessment Notes Oct, Febrile illness, acute (ICD-10 - R50.9) Discussed labs and chest x-ray as indicated for workup of fevers and chills. Differential includes pneumonia urinary tract infection prostatitis or other infectious etiology. Patient states he will go tomorrow for labs and chest x-ray. Patient agrees to go to ER if symptoms worsen in the meantime. [facility] Other 10-27-2023 Evaluation note* Encounter Date Diagnosis [...] classified elsewhere, left ear (ICD-10 - H62.42) [facility] Other 03-06-2023 Hospital Discharge instructions Patient Education 11/23/2022 10:53:28 [...] discomfort near your rectum, especially while sitting. [place]-colored urine due to small amounts of blood in your urine. A burning feeling while urinating. Blood in your stool (feces) or bleeding from your rectum. Blood in your semen. Follow these instructions at home: Medicines Take bhbm-efx-rrvgdhc and prescription medicines only as told by [...] 02/28/2018 Document Revised: 12/27/2019 Document Reviewed: 02/28/2018 [employer] Patient Education 2020 [employer]. Follow Up Care 01/19/2022 10:17:27 With:LAKISHA HOUSTON, Jameson Kay, URL Address: [facility] [address], [place] [address]- When: Unknown [facility] 01-25-2023 Evaluation note* Encounter Date Diagnosis Assessment Notes Treatment Notes Treatment Clinical Notes Sep, Impacted cerumen, right ear (ICD-10 - H61.21) Cerumen impaction home care material was printed Use the Debrox eardrops twice a day for 5 days. Return to the urgent care on Wednesday to have your ear irrigated. [facility] Other 01-20-2023 Evaluation note* Encounter Date Diagnosis Assessment Notes Treatment Notes Treatment Clinical Notes Sep, Bilateral impacted cerumen (ICD-10 - H61.23) Advised to use Debrox for 1 week and then return for ear lavage. His cerumen is very hard and immobile. [facility] Other 08-12-2022 Hospital Discharge instructions Patient Education [...] urethra. Follow these instructions at home: Take oacl-srv-ongavba and prescription medicines only as told by [...] 09/06/2006 Document Revised: 08/01/2019 Document Reviewed: 10/11/2017 [employer] Patient Education 2020 [employer]. Follow Up Care 04/08/2022 15:13:56 With:LAKISHA HOUSTON, Jameson Kay, URL Address: [address] [place], [place] [id number]- When: Unknown [facility] 07-26-2022 Hospital Discharge instructions Patient Education 04/14/2022 [...] for your post-operative appointment in 1-2 weeks [phone] or [phone] Follow Up Care 04/08/2022 13:41:21 With:Jameson MACIAS Address: [facility] [address] [place] [address]- Business (1) When: Unknown Comments:Keep scheduled appointment [facility]05-02-2022 Hospital Discharge instructions Patient Education 01/19/2022 08:16:13 [...] Follow these instructions at home: Medicines Take tbzz-nnc-aytrbef and prescription medicines only as told by [...] 09/03/2001 Document Revised: 08/19/2018 Document Reviewed: 09/22/2017 [employer] Patient Education 2020 [employer]. 01/19/2022 08:16:11 Benign Prostatic Hyperplasia Benign Prostatic [...] urethra. Follow these instructions at home: Take fqoi-tnw-pyzkitn and prescription medicines only as told by [...] 09/06/2006 Document Revised: 08/01/2019 Document Reviewed: 10/11/2017 [employer] Patient Education 2019 [employer]. Follow Up Care 12/22/2021 10:57:06 With:LAKISHA HOUSTON, Jameson Kay, URL Address: [facility] [address] , [place] [address]- When:07/22/2022 [facility] 09-08-2021 NotePROCEDURE: XR FOOT RT MIN 3 VIEWS COMPARISON: None. HISTORY: Pain in right foot FINDINGS: BONES:No fracture, acute abnormality, or significant arthropathy. SOFT TISSUES:Negative. No visible soft tissue swelling. EFFUSION:None visible. OTHER: Negative. IMPRESSION: No acute abnormality Electronically authenticated by: EUGENIA RANDOLPH Date: 2021-05-28 [facility] Future App[facility]ments Appointment Date:07/24/2022 11:15:00 AM Scheduled Provider:Jameson MACIAS MD Location:[place] Appointment Type:URO Office Visit [facility] evaluation + Plan note Future Appointments Appointment Date:04/24/2022 10:30:00 AM Scheduled Provider:Jameson MACIAS MD Location:[place] Appointment Type:URO Office Visit Appointment Date:07/24/2022 11:15:00 AM Scheduled Provider:Jameson MACIAS MD Location:[place] Appointment Type:URO Office Visit Diagnostic Tests Pending * [facility]state [facility] Appointment Date:11/24/2022 04:00:00 PM Scheduled Provider: Location:[facility] Appointment Type:Urology CALL PAT FT Appointment Date:12/01/2022 08:30:00 AM Scheduled Provider: Location:[facility] Appointment Type:Urology FT Appointment Date:12/18/2022 11:00:00 AM Scheduled Provider:Jameson MACIAS MD Location:[place] Appointment Type:URO Office Visit [facility] evaluation + Plan note Future Appointments Appointment Date:06/23/2024 09:45:00 AM Scheduled Provider:Jameson MACIAS MD Location:[place] Appointment Type:URO Office Visit Diagnostic Tests Pending * PSA Total 12/20/23 [facility] evaluation noteNo assessment information available [facility] Work Phone: Evaluation noteNo InformationNort Aphria Other History general Narrative - Reported* Type Description Date Medical History Elevated PSA Medical History Disc disease, degenerative, lumb ar or lumbosacral Medical History Right foot pain Medical History Left lumbar radiculopathy Medical History Benign prostatic hyp erplasia with lower urinary tract symptoms Medical History Erectile dysfunction Surgical History INGUINAL HERNIA REPAIR R 2010 Surgical History COLONOSCOPY Hospitalization History see above [facility] Other Hospital course Narrative No data available for this section [facility] progress note No data available for this section [facility] Summary Purpose Family History No Family History Records FoundNo Family History Records Found No data available for this section No Family History Records Found Advance Directives No Advanced Directives Records Found Advance Directive Response Recorded Date/ Time Advance Directives No February 06 1:35pm Chief Complaint and Reason for Visit Chief Complaint Elevated PSA Additional Source Comments (unrecognized sect ion and content) No Status Records FoundNo Status Records FoundNo Status Records Found INFORMATION SOURCE (unrecogn ized section and content) DATE CREATED AUTHOR 01/17/2022 [facility] DATE CREATED AUTHOR AUTHOR'S ORGANIZ ATION 02/18/2022 [facility] DATE CREATED AUTHOR AUTHOR'S ORGANIZ ATION 12/21/2023 [facility] Care Teams (unrecognized sec tion and content) [...] content) EaracheEAR PAINrefillLEFT EA R PLUGGEDCXRlabsurine culturesick, feversick, fever FOR RECORDS PERTAINING TO PATIENTS WHO [...] BE BASED ON THE PRIMARY CLINICAL RECORDS. [facility] [employer] [facility]. provides no warranty or guarantee of the accuracy or completeness of information in this document.
--- NOTE | 2024-01-06 07:49 | US_ITS ---
The [address] [address] Patient Name: RAFFI CARTAGENA MRN: [id number] date: 1955 Sex: M Assigned Patient Location: [place] Current Patient Location: [place] Accession/Order Number: [id number] Exam Date: 01/06/2024 07:49 Report Date: 01/06/2024 08:39 At the request of: LOUIE MAXWELL Procedure: US right upper quadrant EXAMINATION: US abdomen limited, US right upper quadrant HISTORY: Anemia D64.9, Abnormal Level Of Blood Mineral R79.0 COMPARISON: No relevant comparison available. TECHNIQUE: Transabdominal evaluation of the right upper quadrant. FINDINGS: LIVER: Normal size and echotexture. Color Doppler demonstrates patent hepatic veins. PORTAL VEIN: Duplex Doppler demonstrates normal hepatopetal flow pattern with flow velocity averaging 36 cm/s. GALLBLADDER: No visible gallstones, wall thickening, or pericholecystic free fluid. Negative sonographic Mckinnon's sign. BILIARY: No abnormal dilation or stones. Common bile duct diameter is within normal limits. PANCREASE: No visible mass, abnormal atrophy, or duct dilation. R. KIDNEY: Mild cortical thinning. No hydronephrosis. No visible mass or stones. Size: 10.2 x 4.3 x 5.2 cm SPLEEN: Normal size, contour, and echotexture. Color Doppler demonstrates blood flow within the spleen. Size: 11.6 x 10.7 x 4.4 cm US/US right upper quadrant IMPRESSION: 1. Normal right upper quadrant ultrasound. 2. Unremarkable spleen. Electronically authenticated by: AUGUSTO MORRISON Date: 01/06/2024 08:39
== END 2024-01-06 07:42 | disposition home or self-care (01) ==
LOC: US 07:41
PROVIDERS: PCP Family Medicine; Visit Provider Internal Medicine Hematology & Oncology
DX: D64.9 Anemia, unspecified (principal); R91.1 Solitary pulmonary nodule; R79.0 Abnormal level of blood mineral
CPT/HCPCS: 76705

== ENCOUNTER 2024-01-27 07:33 | Outpatient (RCR) | payer MEDICARE, OTHER, SELFPAY ==
[2024-01-27 09:21] VITALS: BP 145/85; PULSE 53; TEMP 36.8; O2SAT 96
--- NOTE | 2024-01-27 09:23 | PC.NURSE ---
0845 Arrival ambulatory, alert oriented, offers no complaints. drinking cup of coffee, explained phlebotomy procedure educated on need to increase fluid intake over next 24 hrs. verbalizes understanding, 0855 #14 iv catheter inserted rt antecubital area, patient tolerated well. phlebotomy initiated. 0905 500ml of blood removed, phelbotomy completed. IV catheter removed, pressure applied for 5 mins. cotton ball along with coban dressing. patient declines any food, but had drank a coffee and bottle of water while here. 0910 post phebotomy vs 126/81 t 898.8 temporal, p65 r18 up ambulating around. 0915 denies anyn complaints of dizziness/lightheadedness etc. Released ambulatory
== END 2024-02-18 23:59 | disposition home or self-care (01) ==
LOC: INF 07:33
PROVIDERS: PCP Family Medicine; Visit Provider Internal Medicine Hematology & Oncology
DX: D64.9 Anemia, unspecified (principal); R91.1 Solitary pulmonary nodule; Z13.71 Encounter for nonprocreative screening for genetic disease carrier status; F17.210 Nicotine dependence, cigarettes, uncomplicated; R97.20 Elevated prostate specific antigen [PSA]; E83.110 Hereditary hemochromatosis
CPT/HCPCS: 99195; G0463

== ENCOUNTER 2024-02-25 07:38 | Outpatient (RCR) | payer MEDICARE, OTHER, SELFPAY ==
[2024-02-24 12:20] VITALS: BP 133/83; PULSE 68; TEMP 37.2; O2SAT 97
--- NOTE | 2024-02-24 12:41 | PC.NURSE ---
1220: Pt. to [facility] amb. for therapeutic phlebotomy. Seated in recliner. VSS. Blood drawn per this RN for Ferritin level as per. physician order. Pt. given water. Declines snack. Relays eating lunch prior to arrival.
[2024-02-25 06:16] VITALS: BP 135/78; PULSE 60; TEMP 36.9; O2SAT 97
[2024-02-25 09:10] VITALS: BP 120/78; PULSE 65; TEMP 36.9; O2SAT 98
[2024-02-25 09:13] VITALS: BP 152/83; PULSE 56; TEMP 36.9; O2SAT 97
--- NOTE | 2024-02-25 09:18 | PC.NURSE ---
0850 Arrival ambulatory to chair 2. alert oriented offers no complaints. Phlebotomy procedure explained to patient instructed to notify if experiences any light headedness, visual changes, etc. verbalizes understanding, patient stated he did well after last therapeutic phlebotomy. 09 # 16 Angiocath inserted LACF, patient tolerated well, phlebotomy began. 905 tolerating well approx 250 ml removed at this point/ no complaints offered. vital signs obtained. 909 phlebotomy completed. IV dc'd catheter intact. site clear. cotton ball and coban applied to site. 500 ml removed, tolerated well ending vital signs completed. denies any headache visual disturbances or light headedness. up and ambulates around department, tolerates well. released ambulatory
== END 2024-02-28 14:00 | disposition home or self-care (01) ==
LOC: INF 07:38
PROVIDERS: PCP Family Medicine; Visit Provider Internal Medicine Hematology & Oncology
DX: R79.0 Abnormal level of blood mineral (principal); D64.9 Anemia, unspecified; R91.1 Solitary pulmonary nodule; Z13.71 Encounter for nonprocreative screening for genetic disease carrier status
CPT/HCPCS: 36415; 82728; 99195

== ENCOUNTER 2024-04-04 07:38 | Outpatient (RCR) | payer MEDICARE, OTHER, SELFPAY ==
[2024-04-04 10:27] LABS: Basophils Percent Auto 0.7 % (0.2-2.0); Eosinophils Absolute Auto 0.1 10^3/uL (0.0-0.7); Eosinophils Percent Auto 1.7 % (0.9-7.0); Hematocrit 43.1 % (42.0-54.0); Hemoglobin 14.8 g/dL (14.0-18.0); Immature Granulocytes Abs Auto 0.01 10^3/uL (0.00-0.03); Immature Granulocytes Pct Auto 0.2 % (0.0-0.5); Lymphocytes Absolute Auto 1.3 10^3/uL (1.2-3.8); Lymphocytes Percent Auto 21.9 % (20.5-60.0); Mean Corpuscular HGB Conc 34.3 g/dL (29.9-35.2); Mean Corpuscular Hemoglobin 31.8 pg (25.9-34.0); Mean Corpuscular Volume 92.5 fL (80.0-94.0); Mean Platelet Volume 9.9 fL (9.5-13.5); Monocytes Absolute Auto 0.3 10^3/uL (0.3-0.8); Monocytes Percent Auto 5.2 % (1.7-12.0); Neutrophils Absolute Auto 4.1 10^3/uL (1.4-6.5); Neutrophils Percent Auto 70.3 % (43.0-75.0); Platelet Count 233 10^3/uL (150-450); Red Blood Count 4.66 10^6/uL (4.70-6.10); Red Cell Distribution Width 12.8 % (11.0-15.0); White Blood Count 5.8 10^3/uL (4.0-11.0)
[2024-04-04 10:53] LABS: Alanine Aminotransferase 17 U/L (16-63); Albumin Level 3.9 g/dL (3.4-5.0); Alkaline Phosphatase 99 U/L (46-116); Anion Gap 13.5; Aspartate Amino Transferase 16 U/L (15-37); BUN Creatinine Ratio 19.5; Bilirubin Total 1.1 mg/dL (0.2-1.0); Carbon Dioxide 26.9 mmol/L (21.0-32.0); Chloride 101 mmol/L (98-107); Estimated GFR (African America >60 (>=60); Estimated GFR (Non-African Ame >60 (>=60); Globulin 3.9 g/dL; Glucose 91 mg/dL (74-106); Potassium 4.4 mmol/L (3.5-5.1); Sodium 137 mmol/L (136-145); Total Protein 7.8 g/dL (6.4-8.2)
[2024-04-04 16:44] LABS: Percent Iron Saturation 35.5 %
== END 2024-04-19 23:59 | disposition home or self-care (01) ==
LOC: INF 07:38
PROVIDERS: PCP Family Medicine; Visit Provider Internal Medicine Hematology & Oncology
DX: D64.9 Anemia, unspecified (principal); R91.1 Solitary pulmonary nodule; R79.0 Abnormal level of blood mineral; F17.210 Nicotine dependence, cigarettes, uncomplicated; Z13.71 Encounter for nonprocreative screening for genetic disease carrier status; R97.20 Elevated prostate specific antigen [PSA]
CPT/HCPCS: 36415; 80053; 82728; 83540; 83550; 85025; G0463

== ENCOUNTER 2024-06-20 11:38 | Outpatient (OUT) | payer MEDICARE, OTHER, SELFPAY ==
--- OUTSIDE RECORDS SUMMARY | 2024-06-20 12:01 | XMS_ITS | CCD ---
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 Role Phone DR JAMESON MACIAS [...] SUH, DR LISSETTE Camacho Primary Care Unavailable KENT, DR EUGENIA Prado Consulting Unavailable ANGELI, DR [...] physicia Propensity to adverse reactions 3 Comment:Done [facility] Other (6 sources) Allergies Reconciled Propensity to adverse reactions Unknown [facility] Other Medications Current Medications Medication Drug Class(es) Dates Sig (Normalized) Sig (Original) acetaminophen 325 mg / HYDROcodone bitartrate 7.5 mg oral tablet (7 sources) Opioid Agonist Start: 11-19-2022 take 1 tablet by mouth once, then take 1 tablet by mouth every hour [place] 325 mg-7.5 mg oral tablet 1 tab(s), Oral, Once, 1 tab(s), Refill(s) 0, Take 1 hour prior to procedure. Don't drive or operate machinery while taking this medication. Have a certified driver examiner to and from procedure., [facility] #[id number], 175, cm, 05/01/22 10:32:00 EDT, Height/Length Dosing,... Start Date: 11/19/22 Status: Ordered Start: 04-08-2022 take 1 tablet by tatum th once, then take 1 tablet by mouth every hour [place] 325 mg-7.5 mg oral tablet 1 tab(s), Oral, Once, 1 tab(s), Refill(s) 0, Take 1 hour prior to procedure. Don't drive or operate machinery while taking., [facility] #[id number], 175, cm, 01/19/22 9:56:00 EDT, Height/Length Dosing, [...] 14 tab(s), Refills(s) 0, Pharmacy: [facility] #[id number], 175, cm, 05/01/22 10:32:00 EDT, Height/Length Dosing, 55.5, kg, 05/01/22 10:32:00 EDT, Weight Dosing Start Date: 11/19/22 Stop Date: 11/26/22 Status: Ordered Start: 04-08-2022 End: 04-15-2022 Cipro 500 mg Tab 500 mg = 1 tab(s), Oral, q12hr, Start 3 days prior to procedure, X 7 day(s), # 14 tab(s), Refills(s) 0, Pharmacy: [facility] #[id number], 175, cm, 01/19/22 9:56:00 EDT, Height/Length Dosing, [...] Daily, # 90 cap(s), Refills(s) 3, Pharmacy: [facility] #[id number], 172, cm, 12/20/23 9:07:00 EDT, Height/Length Dosing, 55, kg, 12/20/23 9:07:00 EDT, Weight Dosing Start Date: 12/20/23 Status: Ordered Start: 12-22-2021 End: 11-18-2023 take 1 capsule by mouth once daily Flomax 0.4 mg Cap 0.4 mg = 1 cap(s), Oral, Daily, X 30 day(s), # 30 cap(s), Refills(s) 11, Pharmacy: [facility] #[id number], 172, cm, 11/23/22 10:42:00 EST, Height/Length Dosing, [...] activity., # 90 tab(s), Refills(s) 3, Pharmacy: [facility] #[id number], 172, cm, 12/20/23 9:07:00 EDT, Height/Length Dosing, 55, kg, 12/20/23 9:07:00 EDT, Weight Dosing Start Date: 12/20/23 Status: Ordered Start: 01-19-2022 take 1 tablet by tatum once daily tadalafil 5 mg oral tablet 5 mg = 1 tab(s), Oral, Daily, # 90 tab(s), Refills(s) 3, Pharmacy: [facility] [facility], 175, cm, 01/19/22 9:56:00 EDT, Height/Length [...] Visit Summaryon 0 12-20-2023 Ambulatory Visit Summary RAFFI MATHEW :1955 Visit Date:12/20/2023 Ambulatory Visit Instructions Your [...] Appointments Wednesday 9:45 AM EDT With: LAKISHA HOUSTON, Jameson Kay Where: [facility] Patient Educationon 12-20-19 24 Patient Education Oncology [...] Where to find more information ? The [place] Cancer Society: www.cancer.org ? [place] U[employer] Association: www.auanet.org Contact a health care [...] adds flu (more content not included)... Normal [facility] Urology Office/Clinic Noteon 12-20-2023 Urology Office/Clinic Note [...] [facility] [address], [place] [address]- [id number] Additional Instructions: 6 mos w/ PSA Patient [...] mRNA BNT-162b2 (more content not included)... Normal [facility] Comment on above: Result Comment: Elec tronically Signed By: Jameson MACIAS MD\.br\Date and Time Signed: 12/20/23 09:59 EDT\.br\Electronically Co-Signed By: Zoe Llanos\.br\Date and Time Co-Signed: 12/20/23 09:56 EDT\.br\Electronically Co-Signed By: AUBRIE PEDRO PA-C Creatinine (Bld) [Mass/Vol]O rdered By: Jameson Macias on 02-10-2022 Creatinine [Mass/Vol] 1.1 mg/dL 0.6-1.3 [facility] Comment on above: ER/ESD physician is notified/shown all ISTAT results. Critical values may be confirmed by laboratory testing if deemed necessary by ER attending doctor. ISTAT XRay CREon 02-10-2022 Creatinine [Mass/Vol] 1.1 mg/dL Normal 0.6-1.3 [facility] Comment on above: Result Comment: ER/E SD physician is notified/shown all ISTAT results. Critical values may be confirmed by laboratory testing if deemed necessary by ER attending doctor. Performed By: #### I SCRE #### [address] Point of Care testing , ISTAT GFR ( > 60 Normal [facility] Comment on above: Result Comment: GFR estimated reference range: According to KDOQI guidelines, <60 ml/min/1.73m2 is sufficient to diagnose a patient with chronic kidney disease. PERFORMED BY: [place] [address] PATHOLOGIST FUNERAL ATTENDANT SALVADOR GRAYSON M.D. Performed By: #### I SCRE #### [facility] [address] [place] [address] Point of Care testing , ISTAT GFR (Non- Am > 60 [facility] Comment on above: Performed By: #### I SCRE #### [address] Point of Care testing , MR prostate wo/w conon 02-10 MR prostate wo/w con [facility] Main [place] [address] [place] [address] MRI Report Signed Patient: Raffi Mathew MR#: [id number] : 1955 Acct:[id number] Age/Sex: 66 / M ADM Date: 02/10/22 Loc: MR Room: Type: [facility] Attending Dr: Jameson Macias MD Ordering Provider: [...] changes. Impression dictated by: Alfredo Branham Jr., DJonoOJono02/10/2022 9:34 AM Dictation Location: [place] [address] Transcribed By: [facility] 02/10/2234 Dictated By: Alfredo Branham Jr, DO 02/10/2226 Signed By: 02/10/2234 Normal [facility] No Panel InformationOrdered By: Jameson Macias on 02-10-2022 POC Estimated GFR > 60 [facility] Comment on above: GFR estimated refere nce range: According to KDOQI guidelines, <60 ml/min/1.73m2 is sufficient to diagnose a patient with chronic kidney disease. POC Estimated GFR Non- Amer > 60 [facility] Vital Signs Date Time Vital Sign Value Performing Clinician Facility 12-20-2023 09:05-0400 Blood Pressure Location Jameson MACIAS [facility] 12-20-2023 09:05-0400 Diastolic blood pressure 80 mm[Hg] Jameson MACIAS [facility] 12-20-2023 09:05-0400 Heart rate 82 /min Jameson MACIAS [facility] 12-20-2023 09:05-0400 Respiratory rate 16 /min Jameson MACIAS [facility] 12-20-2023 09:05-0400 Systolic blood pressure 127 mm[Hg] Jameson MACIAS [facility] 07-16-2023 09:35-0400 Body height 170.18 cm [facility] Other [facility] Other 07-16-2023 09:35-0400 Body mass index (BMI) [Ratio] 18.73 kg/m2 [facility] Other [facility] Other 07-16-2023 09:35-0400 Body temperature 98 [degF] [facility] Other [facility] Other 07-16-2023 09:35-0400 Body weight 54.25 kg [facility] Other [facility] Other 07-16-2023 09:35-0400 Diastolic blood pressure 76 mm[Hg] [facility] Other [facility] Other 07-16-2023 09:35-0400 Respiratory rate 18 /min [facility] Other [facility] Other 07-16-2023 09:35-0400 SaO2% (BldA) [Mass fraction] 99 % [facility] Other [facility] Other 07-16-2023 09:35-0400 Systolic blood pressure 134 mm[Hg] [facility] Other [facility] Other 11-23-2022 10:37-0500 Blood Pressure Location Jameson MACIAS [facility] 11-23-2022 10:37-0500 Diastolic blood pressure 73 mm[Hg] Jameson MACIAS [facility] 11-23-2022 10:37-0500 Heart rate 72 /min Jameson MACIAS [facility] 11-23-2022 10:37-0500 Systolic blood pressure 111 mm[Hg] Jameson MACIAS [facility] 10-14-2022 10:45-0500 Body height 170.18 cm [facility] Other [facility] Other 10-14-2022 10:45-0500 Body mass index (BMI) [Ratio] 19.58 kg/m2 [facility] Other [facility] Other 10-14-2022 10:45-0500 Body temperature 98.2 [degF] [facility] Other [facility] Other 10-14-2022 10:45-0500 Body weight 56.7 kg [facility] Other [facility] Other 10-14-2022 10:45-0500 Diastolic blood pressure 87 mm[Hg] [facility] Other [facility] Other 10-14-2022 10:45-0500 Respiratory rate 18 /min [facility] Other [facility] Other 10-14-2022 10:45-0500 SaO2% (BldA) [Mass fraction] 97 % [facility] Other [facility] Other 10-14-2022 10:45-0500 Systolic blood pressure 140 mm[Hg] [facility] Other [facility] Other 10-09-2022 10:00-0500 Body height 167.64 cm Lissette Suh Other [facility] Other 10-09-2022 10:00-0500 Body mass index (BMI) [Ratio] 19.53 kg/m2 Lissette Suh Other [facility] Other 10-09-2022 10:00-0500 Body weight 54.89 kg Lissette Suh Other [facility] Other 10-09-2022 10:00-0500 Diastolic blood pressure 84 mm[Hg] Lissette Suh Other [facility] Other 10-09-2022 10:00-0500 SaO2% (BldA) [Mass fraction] 99 % Lissette Suh Other [facility] Other 10-09-2022 10:00-0500 Systolic blood pressure 122 mm[Hg] Lissette Suh Other [facility] Other 02-10-2022 06:44-0400 Body height 175.26 cm MD Lissette Suh Work Phone: [facility] 02-10-2022 06:44-0400 Body weight 55.33 kg MD Lissette Suh Work Phone: [facility] 01-19-2022 09:50-0400 Blood Pressure Location Jameson MACIAS [facility] 01-19-2022 09:50-0400 Diastolic blood pressure 73 mm[Hg] Jameson MACIAS [facility] 01-19-2022 09:50-0400 Heart rate 64 /min Jameson MACIAS [facility] 01-19-2022 09:50-0400 Respiratory rate 16 /min Jameson MACIAS [facility] 01-19-2022 09:50-0400 Systolic blood pressure 131 mm[Hg] Jameson MACIAS [facility] Encounters Encounter Date Encounter Type Care Provider Facility Start: 06-23-2024 ambulatory [facility]on MACIAS [facility] Start: 12-20-2023 End: 12-21-2023 ambulatory Jameson MACIAS Facility:[facility] Start: 12-20-2023 End: 12-20-2023 Patient encounter procedure Jameson MACIAS [facility] Start: 10-25-2023 End: 10-25-2023 ambulatory Lissette Suh Other [facility] Other Start: 10-25-2023 Telephone encounter Lissette Angeli [facility] Start: 10-22-2023 End: 10-22-2023 ambulatory Lissette Suh Other [facility] Other Start: 10-22-2023 Telephone encounter Lissette Angeli [facility] Start: 10-21-2023 (Televisit) Televisit Lissette Angeli F [facility] Start: 10-21-2023 End: 10-21-2023 ambulatory Lissette Suh Other [facility] Other Start: 07-16-2023 End: 07-16-2023 ambulatory [facility] Other [facility] Other Start: 07-16-2023 Office outpatient vi sit 15 minutes [facility] Start: 02-23-2023 End: 02-23-2023 ambulatory Lissette Suh Other [facility] Other Start: 02-23-2023 Telephone encounter Lissette Angeli [facility] Start: 11-23-2022 End: 11-23-2022 Patient encounter procedure Jameson MACIAS [facility] Start: 10-14-2022 End: 10-14-2022 ambulatory [facility] Other [facility] Other Start: 10-14-2022 Office outpatient vi sit 15 minutes [facility] Start: 10-09-2022 End: 10-09-2022 ambulatory Lissette Suh Other [facility] Other Start: 10-09-2022 Office outpatient vi sit 15 minutes Lissette Suh [facility] Start: 05-01-2022 End: 05-01-2022 Patient encounter procedure Jameson MACIAS [facility] Start: 04-14-2022 End: 04-14-2022 Patient encounter procedure Jameson MACIAS [facility] Start: 02-10-2022 End: 02-10-2022 Patient encounter procedure MD Lissette Suh Work Phone: [facility] Start: 01-19-2022 End: 01-19-2022 Patient encounter procedure Jameson MACIAS [facility] Start: 01-12-2022 End: 01-13-[address] JAMESON [...] above: Performed By: #### P SAD #### [facility] [address] [place] [address] Dr. Edmond Gamble Start: 11-12-[address] JUSTIN MACIAS Comment on above: Performed By: #### P SASC #### [facility] [address] [place] [address] Dr. Edmond Gamble Start: 03-27-2016 Removal of suture [facility] Other Start: 10-04-2013 General examination of patient [facility] Other Start: 07-10-2013 Bilateral inguinal h ernia repair Jameson MACIAS Start: 09-20-2011 Colonoscopy Jameson SOTO Screening for malign ant neoplasm of prostate [facility] Other Immunizations Immunization Date Immunization Notes Care Provider Fa cili 09-09-2021 SARS-CoV-2 (COVID-19 ) mRNA BNT-162b2 vax Jameson MACIAS [facility] 01-21-2021 SARS-CoV-2 (COVID-19 ) mRNA BNT-162b2 vax Jameson MACIAS [facility] 12-31-2020 SARS-CoV-2 (COVID-19 ) mRNA BNT-162b2 vax Jameson MACIAS [facility] 10-13-2015 zoster vaccine, live Jameson MACIAS [facility] 07-02-2015 tetanus and diphther ia toxoids, adsorbed, preservative free, for adult use (5 Lf of tetanus toxoid and 2 Lf of diphtheria toxoid) [facility] Other [facility] Other 07-23-2014 tetanus and diphther ia toxoids, adsorbed, preservative free, for adult use (5 Lf of tetanus toxoid and 2 Lf of diphtheria toxoid) [facility] Other [facility] Other Payers Date Payer Category Payer Unknown [id number] [id number] 1959 Medicare [id number] 1959 Unknown [id number] 1955 Unknown [id number] 2.16.84 [id number] 1955 Unknown [id number] 2.16.84 [id number] 1955 Unknown [id number] 2.16.84 [id number] 1955 Unknown [id number] 2.16.8 [id number] 1955 Unknown [id number] 2.16.8 [id number] Medicare Medicare [id number] Self-pay Self Pay [id number] Unknown [employer] [id number] Social History Date Type Detail Facility Start: 12-22-2021 Tobacco smoking status Smoker (cristiani ng) [facility] Sex Assigned At Male [facility] Start: 1955 Sex Assigned At Male [facility] Start: 05-01-2022 End: 12-20-2023 Tobacco smoking status Heavy tobacco smoker (finding) [facility] Tobacco smoking status Never [facility] Functional Status Date Assessment Result Facility 12-20-2023 Functional Status N/A [facility] 11-23-2022 Functional Status N/A [facility] 05-01-2022 Functional Status N/A [facility] [place] Clinical Notes 05-28-2021 to 12-20-2023 Note Date [...] treatment? Where to find more information The [place] Cancer Society: www.cancer.org [place] Urological Association: www.auanet.org Contact a health care [...] provider. Document Revised: 03/02/2022 Document Reviewed: 03/02/2022 [employer] Patient Education 2022 [employer]. 12/20/2023 08:59:38 Steps to Quit Smoking Steps [...] require a prescription. You can also purchase gvvx-zvg-argbumd medicines. Medicines may have nicotine in them [...] and encouragement. Call telephone quitlines, such as 9-350-YPPV-NOW, reach out to support groups, or work [...] provider. Document Revised: 08/28/2022 Document Reviewed: 08/28/2022 [employer] Patient Education 2022 [employer]. Follow Up Care 12/18/2022 12:44:00 With:LAKISHA HOUSTON, Jameson Kay, URL Address: [facility] [address], [place] [id number] When: Unknown [facility] 10-21-2023 Evaluation note Encounter Date Diagnosis Assessment Notes Oct, Febrile illness, acute (ICD-10 - R50.9) Discussed labs and chest x-ray as indicated for workup of fevers and chills. Differential includes pneumonia urinary tract infection prostatitis or other infectious etiology. Patient states he will go tomorrow for labs and chest x-ray. Patient agrees to go to ER if symptoms worsen in the meantime. [facility] Other 10-27-2023 Evaluation note* Encounter Date Diagnosis [...] classified elsewhere, left ear (ICD-10 - H62.42) [facility] Other 03-06-2023 Hospital Discharge instructions Patient Education [...] discomfort near your rectum, especially while sitting. [place]-colored urine due to small amounts of blood in your urine. A burning feeling while urinating. Blood in your stool (feces) or bleeding from your rectum. Blood in your semen. Follow these instructions at home: Medicines Take ehiy-bgt-anqvbxc and prescription medicines only as told by [...] 02/28/2018 Document Revised: 12/27/2019 Document Reviewed: 02/28/2018 [employer] Patient Education 2019 [employer]. Follow Up Care 01/19/2022 10:17:27 With:LAKISHA HOUSTON, Jameson Kay, URL Address: [facility] [address], [place] [address]- When: Unknown [facility] 01-25-2023 Evaluation note* Encounter Date Diagnosis Assessment Notes Treatment Notes Treatment Clinical Notes Sep, Impacted cerumen, right ear (ICD-10 - H61.21) Cerumen impaction home care material was printed Use the Debrox eardrops twice a day for 5 days. Return to the urgent care on Wednesday to have your ear irrigated. [facility] Other 01-20-2023 Evaluation note* Encounter Date Diagnosis Assessment Notes Treatment Notes Treatment Clinical Notes Sep, Bilateral impacted cerumen (ICD-10 - H61.23) Advised to use Debrox for 1 week and then return for ear lavage. His cerumen is very hard and immobile. [facility] Other 08-12-2022 Hospital Discharge instructions Patient Education [...] urethra. Follow these instructions at home: Take dlyl-uqp-wqnacmk and prescription medicines only as told by [...] 09/06/2006 Document Revised: 08/01/2019 Document Reviewed: 10/11/2017 [employer] Patient Education 2020 [employer]. Follow Up Care 04/08/2022 15:13:56 With:LAKISHA HOUSTON, Jameson Kay, URL Address: [address] [place], [place] [id number]- When: Unknown [facility] 07-26-2022 Hospital Discharge instructions Patient Education 04/14/2022 [...] for your post-operative appointment in 1-2 weeks [phone] or [phone] Follow Up Care 04/08/2022 13:41:21 With:Jameson MACIAS Address: [facility] [address] [place] [address]- Business (1) When: Unknown Comments:Keep scheduled appointment [facility]05-02-2022 Hospital Discharge instructions Patient Education 01/19/2022 [...] Follow these instructions at home: Medicines Take zhvk-hpl-codkejk and prescription medicines only as told by [...] 09/03/2001 Document Revised: 08/19/2018 Document Reviewed: 09/22/2017 [employer] Patient Education 2020 [employer]. 01/19/2022 08:16:11 Benign Prostatic Hyperplasia Benign Prostatic [...] urethra. Follow these instructions at home: Take lpsn-vlj-wkxsurq and prescription medicines only as told by [...] 09/06/2006 Document Revised: 08/01/2019 Document Reviewed: 10/11/2017 [employer] Patient Education 2020 [employer] Follow Up Care 12/22/2021 10:57:06 With:LAKISHA HOUSTON, Jameson Kay, URL Address: [facility] [address] [place] [address]- When:07/22/2022 [facility] [place] 09-08-2021 NotePROCEDURE: XR FOOT RT MIN 3 VIEWS COMPARISON: None. HISTORY: Pain in right foot FINDINGS: BONES:No fracture, acute abnormality, or significant arthropathy. SOFT TISSUES:Negative. No visible soft tissue swelling. EFFUSION:None visible. OTHER: Negative. IMPRESSION: No acute abnormality Electronically authenticated by: EUGENIA RANDOLPH Date: 2021-05-28 [facility] App[facility]ments Appointment Date:07/24/2022 11:15:00 AM Scheduled Provider:Jameson MACIAS MD Location:[facility] Appointment Type:URO Office Visit [facility] evaluation + Plan note Future Appointments Appointment Date:04/24/2022 10:30:00 AM Scheduled Provider:Jameson MACIAS MD Location:[facility] Appointment Type:URO Office Visit Appointment Date:07/24/2022 11:15:00 AM Scheduled Provider:Jameson MACIAS MD Location:[facility] Appointment Type:URO Office Visit Diagnostic Tests Pending * Prostate Histology ([facility]) [facility] Future App[facility]ments Appointment Date:11/24/2022 04:00:00 PM Scheduled Provider: Location:[facility] Appointment Type:Urology CALL PAT FT Appointment Date:12/01/2022 08:30:00 AM Scheduled Provider: Location:[facility] Appointment Type:Urology FT Appointment Date:12/18/2022 11:00:00 AM Scheduled Provider:Jameson MACIAS MD Location:[facility] Appointment Type:URO Office Visit [facility] evaluation + Plan note Future Appointments Appointment Date:06/23/2024 09:45:00 AM Scheduled Provider:Jameson MACIAS MD Location:[facility] Appointment Type:URO Office Visit Diagnostic Tests Pending * PSA Total 12/20/23 [facility] evaluation noteNo assessment information available [facility] Work Phone: Evaluation noteNo InformationNorth [employer] Other History general Narrative - Reported* Type Description Date Medical History Elevated PSA Medical History Disc disease, degenerative, lumb ar or lumbosacral Medical History Right foot pain Medical History Left lumbar radiculopathy Medical History Benign prostatic hyp erplasia with lower urinary tract symptoms Medical History Erectile dysfunction Surgical History INGUINAL HERNIA REPAIR R 2010 Surgical History COLONOSCOPY Hospitalization History see above [facility] [employer] Other Hospital course Narrative No data available for this section [facility] progress note No data available for this section [facility] Summary Purpose Family History No Family History Records FoundNo Family History Records Found No data available for this section No Family History Records Found Advance Directives No Advanced Directives Records Found Advance Directive Response Recorded Date/ Time Advance Directives No February 06 2 1:35pm Chief Complaint and Reason for Visit Chief Complaint Elevated PSA Additional Source Comments (unrecognized sect ion and content) No Status Records FoundNo Status Records FoundNo Status Records Found INFORMATION SOURCE (unrecogn ized section and content) DATE CREATED AUTHOR 01/17/2022 [facility] DATE CREATED AUTHOR AUTHOR'S ORGANIZ ATION 02/18/2022 [facility] DATE CREATED AUTHOR AUTHOR'S ORGANIZ ATION 12/21/2023 [facility] Care Teams (unrecognized sec tion and [...] BE BASED ON THE PRIMARY CLINICAL RECORDS. [facility] [employer] [facility]. provides no warranty or guarantee of the accuracy or completeness of information in this document.
[2024-06-20 12:54] LABS: Prostate Specific Antigen Dx 24.38 ng/mL (<=4.00)
== END 2024-06-20 11:39 | disposition home or self-care (01) ==
LOC: LAB 11:41
PROVIDERS: PCP Family Medicine; Visit Provider Urology
DX: D07.5 Carcinoma in situ of prostate (principal)
CPT/HCPCS: 36415; 84153

== ENCOUNTER 2024-07-07 07:34 | Outpatient (RCR) | payer MEDICARE, OTHER, SELFPAY ==
--- NOTE | 2024-06-23 08:30 | PC.NURSE ---
0750 140/75 T97.9 temporal, P 54, R 16, Procedure explained to patient, verbalizes understanding. 0800 alert oriented, offers no complaints. Attempted phlebotomy x2 rt arm, unable to have successful phlebotomy. 0800 # 16 ga left antecubital, tolerated well. 0818 500 ml of blood removed, tolerated well vs obtained. 149/75 P71 R 16, Spo2 97. drinking water as well as coffee, up ambulating around department, tolerated well. released ambulatory
[2024-07-07 08:39] VITALS: BP 145/68; PULSE 65; TEMP 36.4; O2SAT 96
--- NOTE | 2024-07-07 09:11 | PC.NURSE ---
0845 phlebotomy explained, patient has a good understanding, has had several in recent past. Verbalizes understanding. 0847#16 ga IV catheter inserted left AC on 1 attempt, tolerated well. phlebotomy started. 0853 total of 500cc blood collected, patient tolerated well. cottonball/ coban applied to venipuncture site lacf, tolerated well. denies any compaints of dizziness, light headedness etc. VS bp 109/66 T97.6 - P70, R-18, spo2 97%, drinking water. 0855 patient stands up - asymptomatic. 0905 118/78, T 97.5 P70, r 16, up ambulating in department, tolerated well. Released ambulatory
== END 2024-07-20 23:59 | disposition home or self-care (01) ==
LOC: HEMC 07:34
PROVIDERS: PCP Family Medicine; Visit Provider Internal Medicine Hematology & Oncology
DX: D07.5 Carcinoma in situ of prostate (principal); D64.9 Anemia, unspecified; R91.1 Solitary pulmonary nodule; Z13.71 Encounter for nonprocreative screening for genetic disease carrier status; R79.0 Abnormal level of blood mineral; F17.210 Nicotine dependence, cigarettes, uncomplicated
CPT/HCPCS: 36415; 82728; 84153; 99195; G0463

== ENCOUNTER 2024-08-01 13:59 | Outpatient (OUT) | payer MEDICARE, OTHER, SELFPAY ==
[2024-08-01 15:17] LABS: Prostate Specific Antigen Dx 3.88 ng/mL (<=4.00)
== END 2024-08-01 14:00 | disposition home or self-care (01) ==
LOC: LAB 14:01
PROVIDERS: PCP Family Medicine; Visit Provider Urology
DX: R97.20 Elevated prostate specific antigen [PSA] (principal)
CPT/HCPCS: 36415; 84153

== ENCOUNTER 2024-08-22 08:04 | Outpatient (OUT) | payer MEDICARE, OTHER, SELFPAY ==
--- OUTSIDE RECORDS SUMMARY | 2024-08-22 08:19 | XMS_ITS | CCD ---
Author Organization [facility] Care Team Providers Care District Plant Supervisor Name Role Phone DR JAMESON MACIAS Admitting [...] SUH, DR LISSETTE Camacho Primary Care Unavailable BRYCE, DR EUGENIA Prado Consulting Unavailable SUH, DR LISSETTE Camacho Consulting Unavailable LISSETTE SUH Primary Care Physician [phone] MD Lissette Suh Primary Care Provider MD Jameson Macias Attending Provider [phone] Lissette Suh Unavailable [facility] Unavailable Jameson MACIAS Attending Unavailable Jameson MACIAS Attending Unavailable Jameson MACIAS Attending Unavailable Jameson MACIAS Attending Unavailable Allergies Allergy Classification Reported Allergen(s) Allergy Type Date of Onset Reaction(s) Facility (6 sources) patient allergy list reviewed by nurse or physicia Propensity to adverse reactions 3 Comment:Done Positron Other (6 sources) Allergies Reconciled Propensity to adverse reactions Unknown Positron Other Medications Current Medications Medication Drug Class(es) Dates Sig (Normalized) Sig (Original) acetaminophen 325 mg / HYDROcodone bitartrate 7.5 mg oral tablet (7 sources) Opioid Agonist Start: 11-19-2022 take 1 tablet by mouth once, then take 1 tablet by mouth every hour [place] 325 mg-7.5 mg oral tablet 1 tab(s), Oral, Once, 1 tab(s), Refill(s) 0, Take 1 hour prior to procedure. Don't drive or operate machinery while taking this medication. Have a pharmacy delivery driver to and from procedure., [facility] #[id number], 175, cm, 05/01/22 10:32:00 EDT, Height/Length Dosing,... Start Date: 11/19/22 Status: Ordered Start: 04-08-2022 take 1 tablet by tatum th once, then take 1 tablet by mouth every hour [place] 325 mg-7.5 mg oral tablet 1 tab(s), Oral, Once, 1 tab(s), Refill(s) 0, Take 1 hour prior to procedure. Don't drive or operate machinery while taking., [facility] #[id number], 175, cm, 01/19/22 9:56:00 EDT, Height/Length Dosing, [...] Jun, Active ciprofloxacin 500 mg oral tablet (12 sources) Quinolone Antimicrobial Start: 06-23-2024 End: 07-14-2024 take 1 tablet by mouth twice daily Cipro 500 mg Tab 500 mg = 1 tab(s), Oral, BID, X 3 week(s), # 42 tab(s), Refills(s) 0, Pharmacy: [id number], 172, cm, 06/23/24 9:48:00 EDT, Height/Length Dosing, 55.2, kg, 06/23/24 9:48:00 EDT, Weight Dosing Start Date: 06/23/24 Stop Date: 07/14/24 Status: Ordered Start: 11-19-2022 End: 11-26-2022 Cipro 500 mg Tab 500 mg = 1 tab(s), Oral, q12hr, Start 3 days prior to procedure, X 7 day(s), # 14 tab(s), Refills(s) 0, Pharmacy: [facility] #[id number], 175, cm, 05/01/22 10:32:00 EDT, Height/Length Dosing, 55.5, kg, 05/01/22 10:32:00 EDT, Weight Dosing Start Date: 11/19/22 Stop Date: 11/26/22 Status: Ordered Start: 04-08-2022 End: 04-15-2022 Cipro 500 mg Tab 500 mg = 1 tab(s), Oral, q12hr, Start 3 days prior to procedure, X 7 day(s), # 14 tab(s), Refills(s) 0, Pharmacy: [facility] #[id number], 175, cm, 01/19/22 9:56:00 EDT, Height/Length Dosing, 55.5, kg, 01/19/22 9:56:00 EDT, Weight Dosing Start Date: 04/08/22 Stop Date: 04/15/22 Status: Ordered take 1 tablet by tatum every twelve hours Ciprofloxacin HCl 250 MG 1 tablet Orally every 12 hrs for 5 days Active dutasteride 0.5 mg oral capsule (1 source) 5-alpha Reductase Inhibitor Start: 08-04-2024 take 1 capsule by mouth once daily dutasteride 0.5 mg Cap 0.5 mg = 1 cap(s), Oral, Daily, # 90 cap(s), Refills(s) 3, Pharmacy: [facility], 172, cm, 08/04/24 11:47:00 EST, Height/Length Dosing, 55, kg, 08/04/24 11:47:00 EST, Weight Dosing Start Date: 08/04/24 Status: Ordered tamsulosin hydrochloride 0.4 mg oral capsule (11 sources) alpha-Adrenergic Traci Start: 12-20-2023 take 1 capsule by mouth once daily tamsulosin 0.4 mg Cap 0.4 mg = 1 cap(s), Oral, Daily, # 90 cap(s), Refills(s) 3, Pharmacy: [facility] #[id number], 172, cm, 12/20/23 9:07:00 EDT, Height/Length Dosing, 55, kg, 12/20/23 9:07:00 EDT, Weight Dosing Start Date: 12/20/23 Status: Ordered Start: 12-22-2021 End: 11-18-2023 take 1 capsule by mouth once daily Flomax 0.4 mg Cap 0.4 mg = 1 cap(s), Oral, Daily, X 30 day(s), # 30 cap(s), Refills(s) 11, [facility]: [id number], 172, cm, 11/23/22 10:42:00 EST, Height/Length Dosing, [...] activity., # 90 tab(s), Refills(s) 3, [facility]acy: [facility] #[id number], 172, cm, 12/20/23 9:07:00 EDT, Height/Length Dosing, 55, kg, 12/20/23 9:07:00 EDT, Weight Dosing Start Date: 12/20/23 Status: Ordered Start: 01-19-2022 take 1 tablet by tatum th once daily tadalafil 5 mg oral tablet 5 mg = 1 tab(s), Oral, Daily, # 90 tab(s), Refills(s) 3, [facility]: [facility], 175, cm, 01/19/22 9:56:00 EDT, Height/Length Dosing, 55.5, kg, 01/19/22 9:56:00 EDT, Weight Dosing Start Date: 01/19/22 Status: Ordered Problems Active Problems Problem Classification Problem Date Documented Date Episodic/Chronic Cancer of prostate (5 sources) Carcinoma in situ of prostate; Translations: [Carcinoma in situ of prostate] Onset: 05-01-2022 Chronic Fever of unknown origin (2 sources) Fever, unspecified Episodic Genitourinary symptoms and ill-defined conditions (4 sources) Difficulty passing urine; Translations: [Other difficulties with micturition] Onset: 12-20-2023 Episodic Hyperplasia of prostate (20 sources) Benign prostatic hyperplasia without lower urinary tract symptoms; Translations: [Benign prostatic hypertrophy without outflow obstruction] Onset: 10-15-2015 Chronic Inflammatory conditions of male genital organs (11 sources) Prostatitis; Translations: [Inflammatory disease of prostate, unspecified] Onset: 01-19-2022 Episodic Miscellaneous mental health disorders (6 sources) Psychosexual dysfunction associated with inhibited sexual excitement; Translations: [Psychosexual dysfunction with inhibited sexual excitement] Onset: 02-19-2015 Chronic Other connective tissue disease (15 sources) Pain in right foot; Translations: [Pain in right foot] Episodic Other diseases of kidney and ureters (1 source) Urinary tract obstruction; Translations: [Other obstructive and reflux uropathy] Onset: 08-04-2024 Episodic Other ear and sense organ disorders (1 source) Otitis externa in other diseases classified elsewhere, left ear Chronic Other ear and sense organ disorders (1 source) Impacted cerumen, bilateral Episodic Other ear and sense organ disorders (1 source) Impacted cerumen, right ear Episodic Other ear and sense organ disorders (1 source) Impacted cerumen, left ear Episodic Other male genital disorders (20 sources) Male erectile dysfunction, unspecified; Translations: [Erectile dysfunction] Onset: 01-19-2022 Chronic Other male genital disorders (5 sources) Prostatic intraepithelial neoplasia 05-01-2022 Episodic Other [...] lumbar region] Onset: 09-05-2015 Episodic Substance-related disorders (13 sources) Smoker; Translations: [Nicotine dependence] Onset: 05-04-2019 [...] Interpretation Reference Range Facility Ambulatory Visit Summaryon 1 10-04-2023 Ambulatory Visit Summary Ambulatory Visit Summary RAFFI MAHTEW Daily :1955 Visit Date:08/04/2024 Ambulatory Visit Instructions Your Diagnosis PIN III (prostatic intraepithelial neoplasia III) Prostatitis BPH with urinary obstruction ED (erectile dysfunction) Other obstructive and reflux uropathy Your Care Team Attending Physician - LAKISHA HOUSTON, Jameson Kay Primary Care Physician - LISSETTE SUH MD This Is Your Medications List dutasteride (dutasteride 0.5 mg Cap) tadalafil (tadalafil 5 mg oral tablet) tamsulosin (tamsulosin 0.4 mg Cap) Procedures Performed Transrectal biopsy of prostate using ultrasound (US) guidance (12/01/2022), Transrectal biopsy of prostate using ultrasound (US) guidance (04/14/2022), Bilateral inguinal hernia repair (07/10/2013), Colonoscopy (2011). Discharge Vitals Temperature (Oral) 37 ???C Heart Rate (Peripheral) 67 Respiratory Rate 16 Blood Pressure 134/86 Height 172 cm Height 68 in Weight 55 kg Weight 121.254 lb BMI 18.59 What to do next Scheduled Follow-Up Appointments Wednesday. 2024 8:30 AM EDT With: Jameson MACIAS MD Where: [facility] [address] [place] [address] [place] [address]- You Need to Schedule the Following Appointments Follow Up with Jameson MACIAS MD, URL When: In 6 months Comments: w/PSA Where: [facility] [address], [place] [address]- Medications What How Much When Instructions New dutasteride (dutasteride 0.5 mg Cap) 1 Capsules By Mouth Every day Refills: 3 Pickup at [facility] Unchanged tadalafil (tadalafil 5 mg oral tablet) 1 Tablets By Mouth As Directed Take one tab 1 hr prior to sexual activity. Unchanged tamsulosin (tamsulosin 0.4 mg Cap) 1 Capsules By Mouth Every day Pharmacy Information [facility]: [address] [place], [place] [phone] Allergies No Known Allergies Problems Ongoing - Any problem that you are currently receiving treatment for. BPH (benign prostatic hyperplasia) BPH with urinary obstruction ED (erectile dysfunction) Elevated PSA Infrequent urination PIN III (prostatic intraepithelial neoplasia III) Prostatitis Smoker Patient Survey You may receive a survey via text or e-mail asking about your office visit. Please share your experience with us by completing your survey. We appreciate your feedback and thank you for choosing us for your care. Education Materials Benign Prostatic Hyperplasia Benign prostatic hyperplasia (BPH) is an enlarged prostate gland that is caused by the normal aging process. The prostate may get bigger as a man gets older. The condition is not caused by cancer. The prostate is a walnut-sized gland that is involved in the production of semen. It is located in front of the rectum and below the bladder. The bladder stores urine. The urethra carries stored urine out of the body. An enlarged prostate can press on the urethra. This can make it harder to pass urine. The buildup of urine in the bladder can cause infection. Back pressure and infection may progress to bladder damage and kidney (renal) failure. What are the causes? This condition is part of the normal aging process. However, not all men develop problems from this condition. If the prostate enlarges away from the urethra, urine flow will not be blocked. If it enlarges toward the urethra and compresses it, there will be problems passing urine. What increases the risk? This condition is more likely to develop in men older than 50 years. What are the signs or symptoms? Symptoms of this condition include: ??? Getting up often during the night to urinate. ??? Needing to urinate frequently during the day. ??? Difficulty starting urine flow. ??? Decrease in size and strength of your urine stream. ??? Leaking (dribbling) after urinating. ??? Inability to pass urine. This needs immediate treatment. ??? Inability to completely empty your bladder. ??? Pain when you pass urine. This is more common if there is also an infection. ??? Urinary tract infection (UTI). How is this diagnosed? This condition is diagnosed based on your medical history, a physical exam, and your symptoms. Tests will also be done, such as: ??? A post-void bladder scan. This measures any amount of urine that may remain in your bladder after you finish urinating. ??? A digital rectal exam. In a rectal exam, your health care provider checks your prostate by putting a lubricated, gloved finger into your rectum to feel the back of your prostate gland. This exam detects the size of your gland and any abnormal lumps or growths. ??? An exam of your urine (urinalysis). ??? A prostate specific antigen (PSA) screening. This is a blood test used to screen for prostate cancer. ??? An ultrasound. This test uses sound waves to priya (more content not included)... Normal [facility] Urology Office/Clinic Noteon 08-04-2024 Urology Office/Clinic Note Urology Office/Clinic Note Chief Complaint 6wk f/u HPI Staff 6 week f/u with PSA Dx: PIN III, prostatitis, BPH with urinary obstruction and ED PSA 08/01/24 - 3.88 Tamsulosin QD and Tadalafil 5mg PRN Dysuria: denies Incomplete bladder emptying: denies Hematuria: denies Frequency: about 3x per day Urgency: denies Nocturia: 1x per night Stream: good stream Leaking: denies Post void dripping: denies Wearing pads/ Depends: denies Urge incontinence: denies Stress incontinence: denies Incontinence without Sensory Awareness: denies Abdominal pain: denies Flank pain: denies Sexual complaints: denies History of Present Illness Tests reviewed: reviewed UA and PSA I have reviewed the previous health record information and history for this patient from . I have reviewed and verified the staff [...] See HPI. Physical Exam Vitals & Measurements T: 37 ???C(Oral) HR: 67(Peripheral) RR: 16 BP: 134/86 HT: 68 in HT: 172 cm WT: 55 kg WT: 121.254 lb BMI: 18.59 General Appearance: alert, no distress, well nourished, well developed male. Assessment/Plan 1. 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 S/p TRUS/bx 04/14/22. Path report shows SIXTO in the right lateral base. S/p TRUS/bx 12/01/22. Pathology neg for malignancy. Patchy chronic inflammation left lateral apex and left mid. SARA 12/20/23: ~50g, benign. PSA was elevated drastically, was treated for prostatitis, PSA level decreased drastically. Will continue to monitor. -Will order PSA. 2. Prostatitis (N41.9: Inflammatory disease of prostate, unspecified) UA at prior OV showed trace-intact blood and moderate leuks, was asymptomatic. Given drastic increase in PSA and two negative biopsies in the past, was treated for prostatitis, gievn Cipro 500mh BID x 3 wks. UA today shows trace-intact blood and no signs of infection. Pt states that his urine no longer has an odor and he has noticed an improvement in his conformability level. -Daily probiotic 3. BPH with urinary obstruction (N40.1: Benign prostatic hyperplasia with lower urinary tract symptoms) Taking Flomax 0.4mg qd. Strong stream. Discussed starting a new med to help shrink his prostate due to his recent episode of prostatitis. Pt stated he would like to start this med. Follow up in 6 mos w/PSA. All questions/concerns were discussed. Pt to call the office if he encounters any issues prior. Pt acknowledges understanding. Portions of this record may have been created with voice recognition artificial intelligence software, specifically [employer], [employer] and or [employer]. Substitutions may have occurred due to the inherent limitations of voice recognition and artificial intelligence software. -Will start Dutasteride 0.5mg QD. Discussed the medication side effects, and the patient will monitor closely for these, as well as for symptom improvement. If severe side effects occur, the medication should be stopped and the office notified. -Continue Flomax, refills sent today. 4. ED (erectile dysfunction) (N52.9: Male erectile dysfunction, unspecified) Tadalafil 5mg prn. No concerns or indication for dosage changes. Call for refills. Follow-up With When Contact Information LAKISHA HOUSTON, Jameson Kay, JOSEL In 6 months [facility] [address], [place] [address]- Additional Instructions: w/PSA Patient Education Benign Prostatic Hyperplasia I, Sheree Mcleod , personally scribed for Dr. Macias on 08/04/2024 12:29:28. . Documentation recorded by the scribe, Sheree Mcleod, accurately reflects the services(s) I performed and decisions made by me. Problem List/Past Medical History Ongoing BPH (benign prostatic hyperplasia) BPH with urinary obstruction ED (erectile dysfunction) Elevated PSA Infrequent urination PIN III (prostatic intraepithelial neoplasia III) Prostatitis Smoker Historical No qualifying data Procedure/Surgical History Transrectal biopsy of prostat (more content not included)... Normal [facility] Comment on above: Result Comment: Elec tronically Signed By: Jameson MACIAS MD\.br\Date and Time Signed: 08/04/24 12:31 EST\.br\Electronically Co-Signed By: Sheree Mcleod\.br\Date and Time Co-Signed: 08/04/24 12:30 EST Ambulatory Visit Summaryon 1 Ambulatory Visit Summary Ambulatory Visit Summary RAFFI MATHEW :1955 Visit Date:06/23/2024 Ambulatory Visit Instructions Your Diagnosis PIN III (prostatic intraepithelial neoplasia III) Prostatitis BPH with urinary obstruction ED (erectile dysfunction) Your Care Team Attending Physician - Jameson MACIAS MD Primary Care Physician - LISSETTE SUH MD This Is Your Medications List ciprofloxacin (Cipro 500 mg Tab) tadalafil (tadalafil 5 mg oral tablet) tamsulosin (tamsulosin 0.4 mg Cap) Procedures Performed Transrectal biopsy of prostate using ultrasound (US) guidance (12/01/2022), Transrectal biopsy of prostate using ultrasound (US) guidance (04/14/2022), Bilateral inguinal hernia repair (07/10/2013), Colonoscopy (2011). Discharge Vitals Temperature (Temporal Artery) 37 ?C Heart Rate (Peripheral) 63 Respiratory Rate 16 Blood Pressure 125/80 Height 172 cm Height 68 in Weight 55.2 kg Weight 121.44 lb BMI 18.66 What to do next Scheduled Follow-Up Appointments Wednesday 10:45 AM EST With: Jameson MACIAS MD Where: [facility] [address] [place] [address]- You Need to Schedule the Following Appointments Follow Up with Jameson MACIAS MD, URL When: Where: [address] [place] [id number]- Medications What How Much When Instructions New ciprofloxacin (Cipro 500 mg Tab) 1 Tablets By Mouth 2 times a day Duration: 3 Weeks Pickup at [facility] Unchanged tadalafil (tadalafil 5 mg oral tablet) 1 Tablets By Mouth As Directed Take one tab 1 hr prior to sexual activity. Unchanged tamsulosin (tamsulosin 0.4 mg Cap) 1 Capsules By Mouth Every day Pharmacy Information [facility]: [address] [place] [phone] Allergies No Known Allergies Problems Ongoing - Any problem that you are currently receiving treatment for. BPH (benign prostatic hyperplasia) BPH with urinary obstruction ED (erectile dysfunction) Elevated PSA Infrequent urination PIN III (prostatic intraepithelial neoplasia III) Prostatitis Smoker Patient Survey You may receive a survey via text or e-mail asking about your office visit. Please share your experience with us by completing your survey. We appreciate your feedback and thank you for choosing us for your care. Education Materials Prostatitis Prostatitis is swelling or inflammation of the prostate gland, also called the prostate. This gland is about 1.5 inches wide and 1 inch high, and it is involved in making semen. The prostate is located below a man's bladder, in front of the rectum. There are four types of prostatitis: ? Chronic prostatitis (CP), also called chronic pelvic pain syndrome (CPPS). This is the most common type of prostatitis. It is associated with increased muscle tone in the area between the hip bones (pelvic area), around the prostate. This type is also known as a pelvic floor disorder. ? Chronic bacterial prostatitis. This type usually results from an acute bacterial infection in the prostate gland that keeps coming back or has not been treated properly. The symptoms are less severe than those caused by acute bacterial prostatitis, which lasts a shorter time. ? Asymptomatic inflammatory prostatitis. This type does not have symptoms and does not need treatment. This is diagnosed when tests are done for other disorders of the urinary tract or reproductive tract. ? Acute bacterial prostatitis. This type starts quickly and results from an acute bacterial infection in the prostate gland. It is usually associated with a bladder infection, high fever, and chills. This is the least common type of prostatitis. What are the causes? Bacterial prostatitis is caused by an infection from bacteria. Chronic nonbacterial prostatitis may be caused by: ? Factors related to the nervous system. This system includes thebrain, spinal cord, and nerves. ? An autoimmune response. This happens when the body's disease-fighting system attacks healthy tissue in the body by mistake. ? Psychological factors. These have to do with how the mind works. The causes of the other types of prostatitis are usually not known. What are the signs or symptoms? Symptoms of this condition depend on the type of prostatitis you have. Acute bacterial prostatitis Symptoms may include: ? Pain or burning during urination. ? Frequent and sudden urges to urinate. ? Trouble starting to urinate. ? Fever. ? Chills. ? Pain in your muscles or joints, lower back, or lower abdomen. Other types of prostatitis Symptoms may include: ? Sudden urges to urinate, or urinating often. ? Trouble starting to urinate. ? Weak urine stream. ? Dribbling after urination. ? Discharge coming from the penis. ? Pain in the testi (more content not included)... Normal [facility] Urology Office/Clinic Noteon 06-23-2024 Urology Office/Clinic Note Urology Office/Clinic Note Chief Complaint PIN III HPI Staff 6 month f/u with PSA Dx: PIN III, BPH, infrequent urination and ED PSA: 11/12/21 - 5.46 01/12/22 - 3.74 11/16/23 - 5.75 06/20/24 - 24.38 Dysuria: denies Incomplete bladder emptying: denies Hematuria: denies Frequency: denies Urgency: only when he drinks coffee Nocturia: 1-2x Stream: no straining or intermittency Leaking: denies Post void dripping: denies Wearing pads/ Depends: denies Urge incontinence: denies Stress incontinence: denies Incontinence without Sensory Awareness: denies Abdominal pain: denies Flank pain: denies Sexual complaints: denies History of Present Illness Tests reviewed: reviewed UA and PSA. I have reviewed the previous health record [...] See HPI. Physical Exam Vitals & Measurements T: 37 ?C(Temporal Artery) HR: 63(Peripheral) RR: 16 BP: 125/80 HT: 68 in HT: 172 cm WT: 55.2 kg WT: 121.44 lb BMI: 18.66 General Appearance: alert, no distress, well nourished, well developed male. Assessment/Plan 1. 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 S/p TRUS/bx 04/14/22. Path report shows SIXTO in the right lateral base. S/p TRUS/bx 12/01/22. Pathology neg for malignancy. Patchy chronic inflammation left lateral apex and left mid. SARA 12/20/23: ~50g, benign. Possible low grade infection. Will treat pt for prostatitis and repeat PSA to ensure that it decreases. -Repeat PSA after completing abx course -Follow up within 6 weeks w/ PSA 2. Prostatitis (N41.9: Inflammatory disease of prostate, unspecified) UA today shows trace-intact blood and moderate leuks. Asymptomatic. Given drastic increase in PSA and two negative biopsies in the past, will treat pt for prostatitis. -Begin Cipro 500mg bid x 3 weeks -Daily probiotic 3. BPH with urinary obstruction (N40.1: Benign prostatic hyperplasia with lower urinary tract symptoms) Taking Flomax 0.4mg qd. Strong stream. Nocturia 2x. States the only time he does not feel empty is when he is in a hurry which is not often. No urinary concerns. 4. ED (erectile dysfunction) (N52.9: Male erectile dysfunction, unspecified) Tadalafil 5mg prn. No concerns or indication for dosage changes. Follow-up With When Contact Information LAKISHA HOUSTON, Jameson Kay, URL [address] [place] [address]- Additional Instructions: 6 weeks w/ PSA Patient Education Prostatitis I, Isela Zaldivar, personally scribed for Dr. Macias on 06/23/2024 10:54:06. . Documentation recorded by the scribe, Isela Zaldivar, accurately reflects the services(s) I performed and decisions made by me. Authenticated by Dr. Macias on 06/23/2024 10:55:04. Problem List/Past Medical History Ongoing BPH (benign prostatic hyperplasia) BPH with urinary obstruction ED (erectile dysfunction) Elevated PSA Infrequent urination PIN III (prostatic intraepithelial neoplasia III) Prostatitis Smoker Historical No qualifying data Procedure/Surgical History Transrectal biopsy of prostate using ultrasound (US) guidance (12/01/2022), Transrectal biopsy of prostate using ultrasound (US) guidance (04/14/2022), Bilateral inguinal hernia repair (07/10/2013), Colonoscopy (2011). Medications tadalafil 5 mg oral tablet, 5 mg= 1 tab(s), Oral, As Directed, 3 refills tamsulosin 0.4 mg Cap, 0.4 mg= 1 cap(s), Oral, Daily, 3 refills Allergies No Known Allergies Social History Tobacco 10 or more cigarettes (1/2 pack or more)/day in last 30 days Tobacco Use:. Never Smokeless Tobacco Use:. Cigarettes, Household tobacco concerns: No. Yes, 06/23/2024 Family History Cancer: Mother and Brother. Heart disease: Mother, Father and Brother. Immunizations Vaccine Date Status SARS-CoV-2 (COVID-19) mRNA BNT-162b2 vax 09/09/2021 Recorded SARS-CoV-2 (COVID-19) mRNA BNT-162b2 vax 01/21/2021 Recorded SARS-CoV-2 (COVID-19) mRNA BNT-162b2 vax 12/31/2020 Recor (more content not included)... Normal [facility] Comment on above: Result Comment: Elec tronically Signed By: LAKISHA HOUSTON, Jameson Kay\.br\Date and Time Signed: 06/23/24 10:55 EDT\.br\Electronically Co-Signed By: Isela Zaldivar\.br\Date and Time Co-Signed: 06/23/24 10:54 EDT Ambulatory Visit Summaryon 0 12-20-2023 Ambulatory Visit [...] Follow-Up Appointments Wednesday 9:45 AM EDT With: Jameson MACIAS MD Where: [facility] Patient Educationon 12-20-19 24 Patient Education [...] Where to find more information ? The [place] [employer]: www.cancer.org ? [employer] [employer]: www.auanet.org Contact a health care [...] adds flu (more content not included)... Normal [facility] Urology Office/Clinic Noteon 12-20-2023 Urology Office/Clinic Note [...] Jameson Kay, URL [facility] [address] , [place] [address]- [phone] Additional Instructions: 6 mos w/ PSA Patient Education Prostate Cancer Screening Steps to Quit Smoking IZoe, personally scribed for Dr. Macias on 12/20/2023 09:56:06. . Documentation recorded by the scribeZoe, accurately reflects the services(s) I performed and [...] mRNA BNT-162b2 (more content not included)... Normal [facility] Comment on above: Result Comment: Elec tronically Signed By: Jameson MACIAS MD\.br\Date and Time Signed: 12/20/23 09:59 EDT\.br\Electronically Co-Signed By: Zoe Llanos\.br\Date and Time Co-Signed: 12/20/23 09:56 EDT\.br\Electronically Co-Signed By: AUBRIE PEDRO PA-C Creatinine (Bld) [Mass/Vol]O rdered By: Jameson Macias on 02-10-2022 Creatinine [Mass/Vol] 1.1 mg/dL 0.6-1.3 [facility] Comment on above: ER/ESD physician is notified/shown all ISTAT results. Critical values may be confirmed by laboratory testing if deemed necessary by ER attending doctor. ISTAT XRay CREon 02-10-2022 Creatinine [Mass/Vol] 1.1 mg/dL Normal 0.6-1.3 [facility] Comment on above: Result Comment: ER/E SD physician is notified/shown all ISTAT results. Critical values may be confirmed by laboratory testing if deemed necessary by ER attending doctor. Performed By: #### I SCRE #### [facility] [address] [place] [address] Point of Care testing , ISTAT GFR ( > 60 Normal [facility] Comment on above: Result Comment: GFR estimated reference range: According to KDOQI guidelines, <60 ml/min/1.73m2 is sufficient to diagnose a patient with chronic kidney disease. PERFORMED BY: [place] [address] PATHOLOGIST [employer] SALVADOR GRAYSON M.D. Performed By: #### I SCRE #### [facility] [address] [place] [address] Point of Care testing , ISTAT GFR (Non- Am > 60 [facility] Comment on above: Performed By: #### I SCRE #### [facility] [address] [place] [address] Point of Care testing , MR prostate wo/w conon 02-10 MR prostate wo/w con [facility] [address] [place] [address] MRI Report Signed Patient: Raffi Mathew MR#: [id number] : 1955 Acct:[id number] Age/Sex: 66 / M ADM Date: 02/10/22 Loc: Room: Type: [facility] Attending Dr: Jameson Macias MD Ordering Provider: Jamseon Macias MD Date of Service: 02/10/22 MR/MR [...] Branham Jr., D.O.02/10/2022 9:34 AM Dictation Location: [place] [address] Transcribed By: JASON 02/10/22933 Dictated By: Alfredo Branham Jr, DO 02/10/22925 Signed By: 02/10/22933 [facility] No Panel InformationOrdered By: Jameson Macias on 02-10-2022 POC Estimated GFR > 60 [facility] Comment on above: GFR estimated refere nce range: According to KDOQI guidelines, <60 ml/min/1.73m2 is sufficient to diagnose a patient with chronic kidney disease. POC Estimated GFR Non- Amer > 60 [facility] Vital Signs Date Time Vital Sign Value Performing Clinician Facility 08-04-2024 11:22-0500 Blood Pressure Location Jameson MACIAS [facility] 08-04-2024 11:22-0500 Body temperature 98.6 [degF] Jameson MACIAS [facility] 08-04-2024 11:22-0500 Diastolic blood pressure 86 mm[Hg] Jameson MACIAS [facility] 08-04-2024 11:22-0500 Heart rate 67 /min Jameson MACIAS [facility] 08-04-2024 11:22-0500 Respiratory rate 16 /min Jameson MACIAS [facility] 08-04-2024 11:22-0500 Systolic blood pressure 134 mm[Hg] Jameson MACIAS [facility] 06-23-2024 09:34-0400 Blood Pressure Location Jameson MACIAS [facility] 06-23-2024 09:34-0400 Body temperature 98.6 [degF] Jameson MACIAS [facility] 06-23-2024 09:34-0400 Diastolic blood pressure 80 mm[Hg] Jameson MACIAS [facility] 06-23-2024 09:34-0400 Heart rate 63 /min Jameson MACIAS [facility] 06-23-2024 09:34-0400 Respiratory rate 16 /min Jameson MACIAS [facility] 06-23-2024 09:34-0400 Systolic blood pressure 125 mm[Hg] Jameson MACIAS [facility] 12-20-2023 09:05-0400 Blood Pressure Location Jameson MACIAS [facility] 12-20-2023 09:05-0400 Diastolic blood pressure 80 mm[Hg] Jameson MACIAS [facility] 12-20-2023 09:05-0400 Heart rate 82 /min Jamesonelmira MACIAS [facility] 12-20-2023 09:05-0400 Respiratory rate 16 /min Jameson MACIAS [facility] 12-20-2023 09:05-0400 Systolic blood pressure 127 mm[Hg] Jameson MACIAS [facility] 07-16-2023 09:35-0400 Body height 170.18 cm [facility] Other [facility] Other 07-16-2023 09:35-0400 Body mass index (BMI) [Ratio] 18.73 kg/m2 [facility] Other 07-16-2023 09:35-0400 Body temperature 98 [degF] [facility] Other [facility] Other 07-16-2023 09:35-0400 Body weight 54.25 kg [facility] Other [facility] Other 07-16-2023 09:35-0400 Diastolic blood pressure 76 mm[Hg] [facility] Other [facility] Other 07-16-2023 09:35-0400 Respiratory rate 18 /min [facility] Other [facility] Other 07-16-2023 09:35-0400 SaO2% (BldA) [Mass fraction] 99 % [facility] Other [facility] Other 07-16-2023 09:35-0400 Systolic blood pressure 134 mm[Hg] [facility] Other [facility] Other 11-23-2022 10:37-0500 Blood Pressure Location Jameson MACIAS [facility] 11-23-2022 10:37-0500 Diastolic blood pressure 73 mm[Hg] Jameson MACIAS [facility] 11-23-2022 10:37-0500 Heart rate 72 /min Jameson MACIAS [facility] 11-23-2022 10:37-0500 Systolic blood pressure 111 mm[Hg] Jameson MACIAS [facility] 10-14-2022 10:45-0500 Body height 170.18 cm [facility] Other [facility] Other 10-14-2022 10:45-0500 Body mass index (BMI) [Ratio] 19.58 kg/m2 [facility] Other [facility] Other 10-14-2022 10:45-0500 Body temperature 98.2 [degF] [facility] Other [facility] Other 10-14-2022 10:45-0500 Body weight 56.7 kg [facility] Other [facility] Other 10-14-2022 10:45-0500 Diastolic blood pressure 87 mm[Hg] [facility] Other [facility] Other 10-14-2022 10:45-0500 Respiratory rate 18 /min [facility] Other [facility] Other 10-14-2022 10:45-0500 SaO2% (BldA) [Mass fraction] 97 % [facility] Other [facility] Other 10-14-2022 10:45-0500 Systolic blood pressure 140 mm[Hg] [facility] Other [facility] Other 10-09-2022 10:00-0500 Body height 167.64 cm Lissette Suh Other [facility] Other 10-09-2022 10:00-0500 Body mass index (BMI) [Ratio] 19.53 kg/m2 [facility] Su[facility] Other [facility] Other 10-09-2022 10:00-0500 Body weight 54.89 kg Lissette Suh Other [facility] Other 10-09-2022 10:00-0500 Diastolic blood pressure 84 mm[Hg] L[facility]ette Suh Other [facility] Other 10-09-2022 10:00-0500 SaO2% (BldA) [Mass fraction] 99 % [facility] Suh Other [facility] Other 10-09-2022 10:00-0500 Systolic blood pressure 122 mm[Hg] [facility] Su[facility] Other [facility] Other 02-10-2022 06:44-0400 Body height 175.26 cm MD Lissette Suh Work Phone: [facility] 02-10-2022 06:44-0400 Body weight 55.33 kg MD Lissette Suh Work Phone: [facility] 01-19-2022 09:50-0400 Blood Pressure Location Jameson MACIAS [facility] 01-19-2022 09:50-0400 Diastolic blood pressure 73 mm[Hg] Jameson MACIAS [facility] 01-19-2022 09:50-0400 Heart rate 64 /min Jameson MACIAS [facility] 01-19-2022 09:50-0400 Respiratory rate 16 /min [facility] MACIAS [facility] 01-19-2022 09:50-0400 Systolic blood pressure 131 mm[Hg] Jameson MACIAS [facility] Encounters Encounter Date Encounter Type Care Provider Facility Start: 02-02-2025 ambulatory Jameson White ty:ANH Verma Start: 08-04-2024 End: 08-04-2024 ambulatory Jameson MACIAS Facility:[facility] [place] Start: 08-04-2024 End: 08-04-2024 Patient encounter procedure Jameson MACIAS [facility] Start: 06-23-2024 End: 06-23-2024 ambulatory Jameson MACIAS Facility:[facility] [place] Start: 06-23-2024 End: 06-23-2024 Patient encounter procedure Jameson MACIAS [facility] Start: 12-20-2023 End: 12-20-2023 ambulatory Jameson MACIAS Facility:[facility] Start: 12-20-2023 End: 12-20-2023 Patient encounter procedure Jameson MACIAS [facility] Start: 10-25-2023 End: 10-25-2023 ambulatory Lissette Suh Other [facility] Other Start: 10-25-2023 Telephone encounter Lissette Suh [facility] Start: 10-22-2023 End: 10-22-2023 ambulatory Lissette Suh Other [facility] Other Start: 10-22-2023 Telephone encounter Lissette Suh [facility] Start: 10-21-2023 (Televisit) Televisit Lissette Suh [facility] Start: 10-21-2023 End: 10-21-2023 ambulatory Lissette Suh Other [facility] Other Start: 07-16-2023 End: 07-16-2023 ambulatory [facility] Other [facility] Other Start: 07-16-2023 Office outpatient vi sit 15 minutes [facility] Nilsa [facility] Start: 02-23-2023 End: 02-23-2023 ambulatory Lissette Suh Other [facility] Other Start: 02-23-2023 Telephone encounter Lissette Suh [facility] Start: 11-23-2022 End: 11-23-2022 Patient encounter procedure Jameson MACIAS [facility] Start: 10-14-2022 End: 10-14-2022 ambulatory [facility] Other [facility] Other Start: 10-14-2022 Office outpatient vi sit 15 minutes [facility] Nilsa [facility] [place] Start: 10-09-2022 End: 10-09-2022 ambulatory Lissette Suh Other [facility] Other Start: 10-09-2022 Office outpatient vi sit 15 minutes Lissette Suh [facility] Start: 05-01-2022 End: 05-01-2022 Patient encounter procedure Jameson MACIAS [facility] Start: 04-14-2022 End: 04-14-2022 Patient encounter procedure Jameson MACIAS [facility] Start: 02-10-2022 End: 02-10-2022 Patient encounter procedure MD Lissette Suh Work Phone: [facility] Start: 01-19-2022 End: 01-19-2022 Patient encounter procedure Jameson MACIAS [facility] Start: 01-12-2022 End: 04-26-[address] JAMESON MACIAS Facility:[facility] Start: 11-12-2021 [...] above: Performed By: #### P SAD #### [facility] [address] [place] [address] Dr. Edmond Gamble Start: 11-12-[address] JUSTIN MACIAS Comment on above: Performed By: #### P SASC #### [facility] [address] [place] [address] Dr. Edmond Gamble Start: 03-27-2016 Removal of [...] BNT-162b2 vax Jameson MACIAS [facility] 01-21-2021 SARS-CoV-2 (COVID-19 ) mRNA BNT-162b2 vax Jameson MACIAS [facility] 12-31-2020 SARS-CoV-2 (COVID-19 ) mRNA BNT-162b2 vax Jameson MACIAS [facility] 10-13-2015 zoster vaccine, live Jameson MACIAS [facility] 07-02-2015 tetanus and diphther ia toxoids, adsorbed, preservative free, for adult use (5 Lf of tetanus toxoid and 2 Lf of diphtheria toxoid) [facility] Other 07-23-2014 tetanus and diphther ia toxoids, adsorbed, preservative free, for adult use (5 Lf of tetanus toxoid and 2 Lf of diphtheria toxoid) [facility] Other [facility] Other Payers Date Payer Category Payer Unknown [id number] 2.16.8 [id number] 1959 Medicare [id number] 1959 Unknown [id number] 1955 Unknown [id number] 2.16.84 [id number] 1955 Unknown [id number] 2.16.84 [id number] 1955 Unknown [id number] 2.16.84 [id number] 1955 Unknown [id number] 2.16.8 [id number] 1955 Unknown [id number] 2.16.8 [id number] 1955 Unknown [id number] 2.16.8 [id number] 1955 Unknown [id number] 2.16.8 [id number] Medicare Medicare [id number] Self-pay Self Pay [id number] Unknown [employer] [id number] Social History Date Type Detail Facility Start: 12-22-2021 Tobacco smoking status Smoker (findi ng) [facility] Sex Assigned At Male [facility] Start: 1955 Sex Assigned At Male [facility] Start: 05-01-2022 End: 06-23-2024 Tobacco smoking status Heavy tobacco smoker (finding) [facility] Tobacco smoking status Never [facility] Start: 08-04-2024 Tobacco smoking status Light t obacco smoker (finding) [facility] Functional Status Date Assessment Result Facility 08-04-2024 Functional Status N/A [facility] 06-23-2024 Functional Status N/A [facility] 12-20-2023 Functional Status N/A [facility] 11-23-2022 Functional Status N/A [facility] 05-01-2022 Functional Status N/A [facility] Clinical Notes 05-28-2021 to 08-04-2024 Note Date & Type Note Facility 08-04-2024 Hospital Discharge instructions Patient Education 08/04/2024 12:29:09 Benign Prostatic Hyperplasia Benign Prostatic Hyperplasia Benign prostatic hyperplasia (BPH) is an enlarged prostate gland that is caused by the normal aging process. The prostate may get bigger as a man gets older. The condition is not caused by cancer. The prostate is a walnut-sized gland that is involved in the production of semen. It is located in front of the rectum and below the bladder. The bladder stores urine. The urethra carries stored urine out of the body. An enlarged prostate can press on the urethra. This can make it harder to pass urine. The buildup of urine in the bladder can cause infection. Back pressure and infection may progress to bladder damage and kidney (renal) failure. What are the causes? This condition is part of the normal aging process. However, not all men develop problems from this condition. If the prostate enlarges away from the urethra, urine flow will not be blocked. If it enlarges toward the urethra and compresses it, there will be problems passing urine. What increases the risk? This condition is more likely to develop in men older than 50 years. What are the signs or [...] urethra. Follow these instructions at home: Take nbju-ugt-cuthjoh and prescription medicines only as told by your health care provider. Monitor your symptoms for any changes. Contact your health care provider with any changes. Avoid drinking large amounts of liquid before going to bed or out in public. Avoid or reduce how much caffeine or alcohol you drink. Give yourself time when you urinate. Keep all follow-up visits. This is important. Contact a health care provider if: You have unexplained back pain. Your symptoms do not get better with treatment. You develop side effects from the medicine you are taking. Your urine becomes very dark or has a bad smell. Your lower abdomen becomes distended and you have trouble passing urine. Get help right away if: You have a fever or chills. You suddenly cannot urinate. You feel light-headed or very dizzy, or you faint. There are large amounts of blood or clots in your urine. Your urinary problems become hard to manage. You develop moderate to severe low back or flank pain. The flank is the side of your body between the ribs and the hip. These symptoms may be an emergency. Get help right away. Call 911. Do not wait to see if the symptoms will go away. Do not drive yourself to the hospital. Summary Benign prostatic hyperplasia (BPH) is an enlarged prostate that is caused by the normal aging process. It is not caused by cancer. An enlarged prostate can press on the urethra. This can make it hard to pass urine. This condition is more likely to develop in men older than 50 years. Get help right away if you suddenly cannot urinate. This information is not intended to replace advice given to you by your health care provider. Make sure you discuss any questions you have with your health care provider. Document Revised: 03/25/2022 Document Reviewed: 03/25/2022 [employer] Patient Education 2023 [employer]. Follow Up Care 06/23/2024 10:55:47 With:LAKISHA HOUSTON, Jameson Kay, URL Address: [facility] [address] [place] [address]- When:Within 6 Month(s) Comments:w/ERASTO [facility] 08-04-2024 Note Patient Education Urology Benign Prostatic Hyperplasia Benign prostatic hyperplasia (BPH) is an enlarged prostate gland that is caused by the normal aging process. The prostate may get bigger as a man gets older. The condition is not caused by cancer. The prostate is a walnut-sized gland that is involved in the production of semen. It is located in front of the rectum and below the bladder. The bladder stores urine. The urethra carries stored urine out of the body. An enlarged prostate can press on the urethra. This can make it harder to pass urine. The buildup of urine in the bladder can cause infection. Back pressure and infection may progress to bladder damage and kidney (renal) failure. What are the causes? This condition is part of the normal aging process. However, not all men develop problems from this condition. If the prostate enlarges away from the urethra, urine flow will not be blocked. If it enlarges toward the urethra and compresses it, there will be problems passing urine. What increases the risk? This condition is more likely to develop in men older than 50 years. What are the signs or symptoms? Symptoms of this condition include: ??? Getting up often during the night to urinate. ??? Needing to urinate frequently during the day. ??? Difficulty starting urine flow. ??? Decrease in size and strength of your urine stream. ??? Leaking (dribbling) after urinating. ??? Inability to pass urine. This needs immediate treatment. ??? Inability to completely empty your bladder. ??? Pain when you pass urine. This is more common if there is also an infection. ??? Urinary tract infection (UTI). How is this diagnosed? This condition is diagnosed based on your medical history, a physical exam, and your symptoms. Tests will also be done, such as: ??? A post-void bladder scan. This measures any amount of urine that may remain in your bladder after you finish urinating. ??? A digital rectal exam. In a rectal exam, your health care provider checks your prostate by putting a lubricated, gloved finger into your rectum to feel the back of your prostate gland. This exam detects the size of your gland and any abnormal lumps or growths. ??? An exam of your urine (urinalysis). ??? A prostate specific antigen (PSA) screening. This is a blood test used to screen for prostate cancer. ??? An ultrasound. This test uses sound waves [...] severity of your condition. Treatment may include: ??? Observation and yearly exams. This may be the only treatment needed if your condition and symptoms are mild. ??? Medicines to relieve your symptoms, including: ? Medicines to shrink the prostate. ? Medicines to relax the muscle of the prostate. ??? Surgery in severe cases. Surgery may include: [...] the urethra. Follow these instructions at home: ??? Take kcvx-llb-jewjqtk and prescription medicines only as told by your health care provider. ??? Monitor your symptoms for any changes. Contact your health care provider with any changes. ??? Avoid drinking large amounts of liquid before going to bed or out in public. ??? Avoid or reduce how much caffeine or alcohol you drink. ??? Give yourself time when you urinate. ??? Keep all follow-up visits. This is important. Contact a health care provider if: ??? You have unexplained back pain. ??? Your symptoms do not get (more content not included)... [facility] 06-23-2024 Hospital Discharge instructions Patient Education 06/23/2024 10:53:46 Prostatitis Prostatitis Prostatitis is swelling or inflammation of the prostate gland, also called the prostate. This gland is about 1.5 inches wide and 1 inch high, and it is involved in making semen. The prostate is located below a man's bladder, in front of the rectum. There are four types of prostatitis: Chronic prostatitis (CP), also called chronic pelvic pain syndrome (CPPS). This is the most common type of prostatitis. It is associated with increased muscle tone in the area between the hip bones (pelvic area), around the prostate. This type is also known as a pelvic floor disorder. Chronic bacterial prostatitis. This type usually results from an acute bacterial infection in the prostate gland that keeps coming back or has not been treated properly. The symptoms are less severe than those caused by acute bacterial prostatitis, which lasts a shorter time. Asymptomatic inflammatory prostatitis. This type does not have symptoms and does not need treatment. This is diagnosed when tests are done for other disorders of the urinary tract or reproductive tract. Acute bacterial prostatitis. This type starts quickly and results from an acute bacterial infection in the prostate gland. It is usually associated with a bladder infection, high fever, and chills. This is the least common type of prostatitis. What are the causes? Bacterial prostatitis is caused by an infection from bacteria. Chronic nonbacterial prostatitis may be caused by: Factors related to the nervous system. This system includes thebrain, spinal cord, and nerves. An autoimmune response. This happens when the body's disease-fighting system attacks healthy tissue in the body by mistake. Psychological factors. These have to do with how the mind works. The causes of the other types of prostatitis are usually not known. What are the signs or symptoms? Symptoms of this condition depend on the type of prostatitis you have. Acute bacterial prostatitis Symptoms may include: Pain or burning during urination. Frequent and sudden urges to urinate. Trouble starting to urinate. Fever. Chills. Pain in your muscles or joints, lower back, or lower abdomen. Other types of prostatitis Symptoms may include: Sudden urges to urinate, or urinating often. Trouble starting to urinate. Weak urine stream. Dribbling after urination. Discharge coming from the penis. Pain in the testicles, the penis, or the tip of the penis. Pain in the area in front of the rectum and below the scrotum (perineum). Pain when ejaculating. How is this diagnosed? This condition may be diagnosed based on: A physical and medical exam. A digital rectal exam. For this, the health care provider may use a finger to feel the prostate. A urine test to check for bacteria. A semen sample or blood tests. Ultrasound. Urodynamic tests to check how your body handles urine. Cystoscopy to look inside your bladder or inside the part of your body that drains urine from the bladder (urethra). How is this treated? Treatment for this condition depends on the type of prostatitis. Treatment may involve: Medicines to relieve pain or inflammation, or to help relax your muscles. Physical therapy. Heat therapy. Biofeedback. These techniques help you control certain body functions. Relaxation exercises. Antibiotic medicine, if your condition is caused by bacteria. Sitz baths. These warm water baths help to relax your pelvic floor muscles, which helps to relieve pressure on the prostate. Follow these instructions at home: Medicines Take khcd-dvi-vhdvjcy and prescription medicines only as told by your health care provider. If you were prescribed an antibiotic medicine, take it as told by your health care provider. Do not stop using the antibiotic even if you start to feel better. Managing pain and swelling Take sitz baths as directed by your health care provider. For a sitz bath, sit in warm water that is deep enough to cover your hips and buttocks. If directed, apply heat to the affected area as often as told by your health care provider. Use the heat source that your health care provider recommends, such as a moist heat pack or a heating pad. ?Place a towel between your skin and the heat source. ?Leave the heat on for 20 30 minutes. ?Remove the heat if your skin turns bright red. This is especially important if you are unable to feel pain, heat, or cold. You may have a greater risk of getting burned. General instructions Do exercises as told by your health care provider, if you were prescribed physical therapy, biofeedback, or relaxation exercises. Keep all follow-up visits as told by your health care provider. This is important. Where to find more information National [place] of Diabetes and Digestive and Kidney Diseases: https://www.niddk.nih.gov Contact a health care provider if: Your symptoms get worse. You have a fever. Get help right away if: You have chills. You feel light-headed or feel like you may faint. You cannot urinate. You have blood or blood clots in your urine. Summary Prostatitis is swelling or inflammation of the prostate gland. Treatment for this condition depends on the type of prostatitis. Take xqpi-rco-mdhymje and prescription medicines only as told by your health care provider. Get help right away of you have chills, feel light-headed, feel like you may faint, cannot urinate, or have blood or blood clots in your urine. This information is not intended to replace advice given to you by your health care provider. Make sure you discuss any questions you have with your health care provider. Document Revised: 07/22/2023 Document Reviewed: 07/22/2023 [employer] Patient Education 2023 [employer]. Follow Up Care 12/20/2023 09:59:27 With:LAKISHA HOUSTON, Jameson Kay, URL Address: [address] [place] [address]- When: Unknown [facility] 06-23-2024 Note Patient Education Infectious Disease Prostatitis Prostatitis is swelling or inflammation of the prostate gland, also called the prostate. This gland is about 1.5 inches wide and 1 inch high, and it is involved in making semen. The prostate is located below a man's bladder, in front of the rectum. There are four types of prostatitis: ? Chronic prostatitis (CP), also called chronic pelvic pain syndrome (CPPS). This is the most common type of prostatitis. It is associated with increased muscle tone in the area between the hip bones (pelvic area), around the prostate. This type is also known as a pelvic floor disorder. ? Chronic bacterial prostatitis. This type usually results from an acute bacterial infection in the prostate gland that keeps coming back or has not been treated properly. The symptoms are less severe than those caused by acute bacterial prostatitis, which lasts a shorter time. ? Asymptomatic inflammatory prostatitis. This type does not have symptoms and does not need treatment. This is diagnosed when tests are done for other disorders of the urinary tract or reproductive tract. ? Acute bacterial prostatitis. This type starts quickly and results from an acute bacterial infection in the prostate gland. It is usually associated with a bladder infection, high fever, and chills. This is the least common type of prostatitis. What are the causes? Bacterial prostatitis is caused by an infection from bacteria. Chronic nonbacterial prostatitis may be caused by: ? Factors related to the nervous system. This system includes thebrain, spinal cord, and nerves. ? An autoimmune response. This happens when the body's disease-fighting system attacks healthy tissue in the body by mistake. ? Psychological factors. These have to do with how the mind works. The causes of the other types of prostatitis are usually not known. What are the signs or symptoms? Symptoms of this condition depend on the type of prostatitis you have. Acute bacterial prostatitis Symptoms may include: ? Pain or burning during urination. ? Frequent and sudden urges to urinate. ? Trouble starting to urinate. ? Fever. ? Chills. ? Pain in your muscles or joints, lower back, or lower abdomen. Other types of prostatitis Symptoms may include: ? Sudden urges to urinate, or urinating often. ? Trouble starting to urinate. ? Weak urine stream. ? Dribbling after urination. ? Discharge coming from the penis. ? Pain in the testicles, the penis, or the tip of the penis. ? Pain in the area in front of the rectum and below the scrotum (perineum). ? Pain when ejaculating. How is this diagnosed? This condition may be diagnosed based on: ? A physical and medical exam. ? A digital rectal exam. For this, the health care provider may use a finger to feel the prostate. ? A urine test to check for bacteria. ? A semen sample or blood tests. ? Ultrasound. ? Urodynamic tests to check how your body handles urine. ? Cystoscopy to look inside your bladder or inside the part of your body that drains urine from the bladder (urethra). How is this treated? Treatment for this condition depends on the type of prostatitis. Treatment may involve: ? Medicines to relieve pain or inflammation, or to help relax your muscles. ? Physical therapy. ? Heat therapy. ? Biofeedback. These techniques help you control certain body functions. ? Relaxation exercises. ? Antibiotic medicine, if your condition is caused by bacteria. ? Sitz baths. These warm water baths help to relax your pelvic floor muscles, which helps to relieve pressure on the prostate. Follow these instructions at home: Medicines ? Take lfeh-zfk-cmxszur and prescription medicines only as told by your health care provider. ? If you were prescribed an antibiotic medicine, take it as told by your health care provider. Do not stop using the antibiotic even if you start to feel better. Managing pain and swelling ? Take sitz baths as directed by your health care provider. For a sitz bath, sit in warm water that is deep enough to cover your hips and buttocks. ? If directed, apply heat to the affected area as often as told by your health care provider. Use the heat source that your health care provider recommends, such as a moist heat pack or a heating pad. ? Place a towel between your skin and the heat source. ? Leave the heat on for 20?30 minutes. ? Remove the heat if your skin turns bright red. This is especially important if you are unable to feel pain, heat, or cold. You may have a greater risk of getting burned. General instructions ? Do exercises as told by your health care provider, if you were prescribed physical therapy, biofeedback, or relaxation exercises. ? Keep all follow-up visits as told by your health care provider. This is important. Where to find more information ? National [place] of Diabetes and Digestive a (more content not included)... [facility] 12-20-2023 Hospital Discharge instructions Patient Education 12/20/2023 [...] treatment? Where to find more information [employer] [place] [employer]: www.cancer.org [place] [employer]: www.auanet.org Contact a health care [...] provider. Document Revised: 03/02/2022 Document Reviewed: 03/02/2022 [employer] Patient Education 2022 [employer] 12/20/2023 08:59:38 Steps to Quit Smoking Steps [...] require a prescription. You can also purchase zhen-apu-bwyjknk medicines. Medicines may have nicotine in them [...] and encouragement. Call telephone quitlines, such as 1-085-OCYI-NOW, reach out to support groups, or work [...] provider. Document Revised: 08/28/2022 Document Reviewed: 08/28/2022 [employer] Patient Education 2022 [employer]. Follow Up Care 12/18/2022 12:44:00 With:LAKISHA HOUSTON, Jameson Kay, URL Address: [facility] [address] , [place] [address]- [phone] When: Unknown [facility] 10-21-2023 Evaluation note Encounter [...] ER if symptoms worsen in the meantime. [facility] 10-27-2023 Evaluation note* Encounter Date Diagnosis [...] classified elsewhere, left ear (ICD-10 - H62.42) [facility] Other 03-06-2023 Hospital Discharge instructions Patient Education [...] discomfort near your rectum, especially while sitting. Stigler-colored urine due to small amounts of blood in your urine. A burning feeling while urinating. Blood in your stool (feces) or bleeding from your rectum. Blood in your semen. Follow these instructions at home: Medicines Take lejj-icq-iezqlpd and prescription medicines only as told by [...] 02/28/2018 Document Revised: 12/27/2019 Document Reviewed: 02/28/2018 [employer] Patient Education 2019 [employer]. Follow Up Care 01/19/2022 10:17:27 With:LAKISHA HOUSTON, Jameson Kay, URL Address: [facility] [address], [place] [address]- When: Unknown [facility] 01-25-2023 Evaluation note* Encounter Date Diagnosis Assessment Notes Treatment Notes Treatment Clinical Notes Sep, Impacted cerumen, right ear (ICD-10 - H61.21) Cerumen impaction home care material was printed Use the Debrox eardrops twice a day for 5 days. Return to the urgent care on Wednesday to have your ear irrigated. [facility] Other 01-20-2023 Evaluation note* Encounter Date Diagnosis Assessment Notes Treatment Notes Treatment Clinical Notes Sep, Bilateral impacted cerumen (ICD-10 - H61.23) Advised to use Debrox for 1 week and then return for ear lavage. His cerumen is very hard and immobile. [facility] Other 08-12-2022 Hospital Discharge instructions Patient Education [...] urethra. Follow these instructions at home: Take kvzl-xgv-qbypaba and prescription medicines only as told by [...] 09/06/2006 Document Revised: 08/01/2019 Document Reviewed: 10/11/2017 [employer] Patient Education 2020 [employer]. Follow Up Care 04/08/2022 15:13:56 With:LAKISHA HOUSTON, Jameson Kay, URL Address: [address] [place] [address] [place] [address]- When: Unknown [facility] Hospital Discharge instructions Patient Education 04/14/2022 [...] for your post-operative appointment in 1-2 weeks [phone] or [phone] Follow Up Care 04/08/2022 13:41:21 With:Jameson MACIAS Address: [facility] [address] [place] [address]- Business (1) When: Unknown Comments:Keep scheduled appointment [facility]05-02-2022 Hospital Discharge instructions Patient Education 01/19/2022 [...] Follow these instructions at home: Medicines Take eqbl-iys-jhocxvo and prescription medicines only as told by [...] 09/03/2001 Document Revised: 08/19/2018 Document Reviewed: 09/22/2017 [employer] Patient Education 2020 [employer]. 01/19/2022 08:16:11 Benign Prostatic Hyperplasia Benign Prostatic [...] urethra. Follow these instructions at home: Take anly-zwb-tcyaobn and prescription medicines only as told by [...] 09/06/2006 Document Revised: 08/01/2019 Document Reviewed: 10/11/2017 [employer] Patient Education 2019 [employer]. Follow Up Care 12/22/2021 10:57:06 With:Jameson MACIAS MD, URL Address: [facility] [address], [place] [address]- When:07/22/2022 [facility] 09-08-2021 NotePROCEDURE: XR FOOT RT MIN 3 VIEWS COMPARISON: None. HISTORY: Pain in right foot FINDINGS: BONES:No fracture, acute abnormality, or significant arthropathy. SOFT TISSUES:Negative. No visible soft tissue swelling. EFFUSION:None visible. OTHER: Negative. IMPRESSION: No acute abnormality Electronically authenticated by: EUGENIA RANDOLPH Date: 2021-05-28 16:50[facility] Future App[facility]ments Appointment Date:07/24/2022 11:15:00 AM Scheduled Provider:Jameson MACIAS MD Location:[facility] Appointment Type:URO Office Visit [facility] evaluation + Plan note Future Appointments Appointment Date:04/24/2022 10:30:00 AM Scheduled Provider:Jameson MACIAS MD Location:[facility] Appointment Type:URO Office Visit Appointment Date:07/24/2022 11:15:00 AM Scheduled Provider:Jameson MACIAS MD Location:[facility] Appointment Type:URO Office Visit Diagnostic Tests Pending * Prostate Histology ([facility]) [facility] Future Appointments Appointment Date:11/24/2022 04:00:00 PM Scheduled Provider: Location:[facility] Appointment Type:Urology CALL PAT Appointment Date:12/01/2022 08:30:00 AM Scheduled Provider: Location:[facility] Appointment Type:Urology FT Appointment Date:12/18/2022 11:00:00 AM Scheduled Provider:Jameson MACIAS MD Location:[facility] Appointment Type:URO Office Visit [facility] evaluation + Plan note Future Appointments Appointment Date:06/23/2024 09:45:00 AM Scheduled Provider:Jameson MACIAS MD Location:[facility] Appointment Type:URO Office Visit Diagnostic Tests Pending * PSA Total 12/20/23 [facility] evaluation + Plan note Future Appointments Appointment Date:08/04/2024 10:45:00 AM Scheduled Provider:Jameson MACIAS MD Location:[facility] Appointment Type:URO Office Visit Diagnostic Tests Pending * PSA Total 07/04/24 [facility] evaluation + Plan note Future Appointments Appointment Date:02/02/2025 08:30:00 AM Scheduled Provider:Jameson MACIAS MD Location:[facility] Appointment Type:URO Office Visit Diagnostic Tests Pending * PSA Total 08/04/24 [facility] evaluation noteNo assessment information available [facility] Work Phone: Evaluation noteNo InformationN[facility] Other History general Narrative - Reported* Type Description Date Medical History Elevated PSA Medical History Disc disease, degenerative, lumb ar or lumbosacral Medical History Right foot pain Medical History Left lumbar radiculopathy Medical History Benign prostatic hyp erplasia with lower urinary tract symptoms Medical History Erectile dysfunction Surgical History INGUINAL HERNIA REPAIR R 2010 Surgical History COLONOSCOPY Hospitalization History see above [facility] Other Hospital course Narrative No data available for this section [facility] progress note No data available for this section [facility] Summary Purpose Family History No Family History Records FoundNo Family History Records Found No data available for this section No data available for this section No data available for this section No [...] and content) DATE CREATED AUTHOR 01/17/2022 [facility] DATE CREATED AUTHOR AUTHOR'S ORGANIZ ATION 02/18/2022 [facility] DATE CREATED AUTHOR AUTHOR'S ORGANIZ ATION 08/07/2024 [facility] Care Teams (unrecognized sec tion and [...] BE BASED ON THE PRIMARY CLINICAL RECORDS. [employer] [facility]. provides no warranty or guarantee of the accuracy or completeness of information in this document.
[2024-08-22 08:39] LABS: Basophils Percent Auto 0.8 % (0.2-2.0); Eosinophils Absolute Auto 0.1 10^3/uL (0.0-0.7); Eosinophils Percent Auto 2.8 % (0.9-7.0); Hematocrit 41.7 % (42.0-54.0); Hemoglobin 14.1 g/dL (14.0-18.0); Immature Granulocytes Abs Auto 0.01 10^3/uL (0.00-0.03); Immature Granulocytes Pct Auto 0.2 % (0.0-0.5); Lymphocytes Absolute Auto 0.9 10^3/uL (1.2-3.8); Lymphocytes Percent Auto 17.7 % (20.5-60.0); Mean Corpuscular HGB Conc 33.8 g/dL (29.9-35.2); Mean Corpuscular Hemoglobin 31.5 pg (25.9-34.0); Mean Corpuscular Volume 93.3 fL (80.0-94.0); Mean Platelet Volume 9.7 fL (9.5-13.5); Monocytes Absolute Auto 0.4 10^3/uL (0.3-0.8); Monocytes Percent Auto 7.3 % (1.7-12.0); Neutrophils Absolute Auto 3.5 10^3/uL (1.4-6.5); Neutrophils Percent Auto 71.2 % (43.0-75.0); Platelet Count 201 10^3/uL (150-450); Red Blood Count 4.47 10^6/uL (4.70-6.10); Red Cell Distribution Width 12.5 % (11.0-15.0)
[2024-08-22 08:45] LABS: Alanine Aminotransferase 20 U/L (16-63); Albumin Globulin Ratio 0.9; Albumin Level 3.4 g/dL (3.4-5.0); Alkaline Phosphatase 98 U/L (46-116); Anion Gap 10.4; Aspartate Amino Transferase 13 U/L (15-37); BUN Creatinine Ratio 16.9; Bilirubin Total 0.7 mg/dL (0.2-1.0); Calcium 8.7 mg/dL (8.5-10.1); Carbon Dioxide 28.7 mmol/L (21.0-32.0); Chloride 103 mmol/L (98-107); Estimated GFR (African America >60 (>=60 mL/min/1.73m^2); Estimated GFR (Non-African Ame 55 (>=60 mL/min/1.73m^2); Globulin 3.9 g/dL; Glucose 96 mg/dL (74-106); Potassium 4.1 mmol/L (3.5-5.1); Sodium 138 mmol/L (136-145); Total Protein 7.3 g/dL (6.4-8.2)
[2024-08-22 09:12] LABS: Percent Iron Saturation 17.2 %
== END 2024-08-22 08:05 | disposition home or self-care (01) ==
LOC: LAB 08:07
PROVIDERS: PCP Family Medicine; Visit Provider Internal Medicine Hematology & Oncology
DX: D64.9 Anemia, unspecified (principal); R91.1 Solitary pulmonary nodule; Z13.71 Encounter for nonprocreative screening for genetic disease carrier status; R79.0 Abnormal level of blood mineral
CPT/HCPCS: 36415; 80053; 82728; 83540; 83550; 85025

== ENCOUNTER 2024-08-30 07:33 | Outpatient (RCR) | payer MEDICARE, OTHER, SELFPAY ==
[2024-08-30 09:55] VITALS: BP 145/73; PULSE 56; TEMP 36.6; O2SAT 98
[2024-08-30 10:07] VITALS: BP 110/79; PULSE 73; O2SAT 98
--- NOTE | 2024-08-30 10:30 | PC.NURSE ---
0955: Pt. to [facility] amb. for therapeutic phlebotomy. Ferritin 203 on 08/22/24. VSS. 1001: Using 16 gauge Insyte needle, left AC accessed easily, phlebotomy initiated. 1007: 506 ML blood obtained, phlebotomy stopped. Pressure to site. VSS. Given snack and OJ. 1017: Pt. without c/o syncope, nausea or c/o discomfort. No bleeding to IV site. D/c'd amb. to home.
== END 2024-08-30 13:35 | disposition home or self-care (01) ==
LOC: HEMC 07:33
PROVIDERS: PCP Family Medicine; Visit Provider Internal Medicine Hematology & Oncology
DX: D64.9 Anemia, unspecified (principal); R91.1 Solitary pulmonary nodule; Z13.71 Encounter for nonprocreative screening for genetic disease carrier status; R79.0 Abnormal level of blood mineral; F17.210 Nicotine dependence, cigarettes, uncomplicated; R97.20 Elevated prostate specific antigen [PSA]
CPT/HCPCS: 99195; G0463

== ENCOUNTER 2024-11-20 13:44 | Outpatient (OUT) | payer OTHER, SELFPAY ==
[2024-11-20 14:03] LABS: Basophils Percent Auto 0.7 % (0.2-2.0); Eosinophils Absolute Auto 0.1 10^3/uL (0.0-0.7); Eosinophils Percent Auto 2.4 % (0.9-7.0); Hematocrit 40.5 % (42.0-54.0); Hemoglobin 13.9 g/dL (14.0-18.0); Immature Granulocytes Abs Auto 0.01 10^3/uL (0.00-0.03); Immature Granulocytes Pct Auto 0.2 % (0.0-0.5); Lymphocytes Absolute Auto 1.3 10^3/uL (1.2-3.8); Lymphocytes Percent Auto 21.4 % (20.5-60.0); Mean Corpuscular HGB Conc 34.3 g/dL (29.9-35.2); Mean Corpuscular Hemoglobin 30.9 pg (25.9-34.0); Monocytes Absolute Auto 0.4 10^3/uL (0.3-0.8); Neutrophils Absolute Auto 4.1 10^3/uL (1.4-6.5); Neutrophils Percent Auto 69.3 % (43.0-75.0); Platelet Count 213 10^3/uL (150-450); Red Cell Distribution Width 13.2 % (11.0-15.0); White Blood Count 5.9 10^3/uL (4.0-11.0)
[2024-11-20 14:25] LABS: Alanine Aminotransferase 20 U/L (16-63); Albumin Globulin Ratio 0.8; Albumin Level 3.3 g/dL (3.4-5.0); Alkaline Phosphatase 98 U/L (46-116); Anion Gap 12.9; Aspartate Amino Transferase 14 U/L (15-37); BUN Creatinine Ratio 17.4; Bilirubin Total 0.4 mg/dL (0.2-1.0); Carbon Dioxide 28.7 mmol/L (21.0-32.0); Chloride 104 mmol/L (98-107); Estimated GFR (African America >60 (>=60 mL/min/1.73m^2); Estimated GFR (Non-African Ame >60 (>=60 mL/min/1.73m^2); Globulin 3.9 g/dL; Glucose 90 mg/dL (74-106); Potassium 4.6 mmol/L (3.5-5.1); Sodium 141 mmol/L (136-145); Total Protein 7.2 g/dL (6.4-8.2)
[2024-11-20 14:28] LABS: Percent Iron Saturation 21.4 %
== END 2024-11-20 13:45 | disposition home or self-care (01) ==
LOC: LAB 13:51
PROVIDERS: PCP Family Medicine; Visit Provider Internal Medicine Hematology & Oncology
DX: D64.9 Anemia, unspecified (principal); R91.1 Solitary pulmonary nodule; Z13.71 Encounter for nonprocreative screening for genetic disease carrier status; R79.0 Abnormal level of blood mineral
CPT/HCPCS: 36415; 80053; 82728; 83540; 83550; 85025

== ENCOUNTER 2024-12-01 07:32 | Outpatient (RCR) | payer OTHER, SELFPAY ==
[2024-12-01 08:45] VITALS: BP 146/89; PULSE 63; TEMP 36.4; O2SAT 98
[2024-12-01 09:03] VITALS: BP 112/81; PULSE 67; O2SAT 97
[2024-12-01 09:22] VITALS: BP 118/82; PULSE 66; O2SAT 98
== END 2024-12-11 10:27 | disposition home or self-care (01) ==
LOC: HEMC 07:32
PROVIDERS: PCP Family Medicine; Visit Provider Internal Medicine Hematology & Oncology
DX: R79.0 Abnormal level of blood mineral (principal); D64.9 Anemia, unspecified; R91.1 Solitary pulmonary nodule; Z13.71 Encounter for nonprocreative screening for genetic disease carrier status; Z87.891 Personal history of nicotine dependence
CPT/HCPCS: 99195

== ENCOUNTER 2024-12-08 08:42 | Outpatient (OUT) | payer OTHER, SELFPAY ==
--- NOTE | 2024-12-08 08:44 | CT_ITS ---
[address] [address] Patient Name: RAFFI CARTAGENA MRN: [id number] date: 1955 Sex: M Assigned Patient Location: CT Current Patient Location: CT Accession/Order Number: [id number] Exam Date: 12/08/2024 09:58 Report Date: 12/08/2024 10:01 At the request of: LOUIE MAXWELL MD Procedure: CT lung screening low-dose CT CHEST WITHOUT CONTRAST, LOW DOSE SCREENING: CLINICAL DATA: A 69-year old current smoker COMPARISON: CT lung screen 11/19/2023 TECHNIQUE: Noncontrast axial CT scan images of the chest were obtained under the low dose screening CT protocol. Coronal and sagittal reconstructed images were also submitted. FINDINGS: Mediastinum : Suboptimal evaluation due to low-dose technique. Thoracic aorta appears normal in caliber. Pulmonary trunk appears nondilated. No pericardial effusion. No lymphadenopathy. The esophagus is grossly unremarkable. Lungs: No focal consolidation, pneumothorax or pleural effusion. Trachea and distal airways appear patent. Diffuse bronchial wall thickening. Biapical scarring. No suspicious noncalcified pulmonary nodule or mass. Upper abdomen: No acute findings. Bony thorax and chest wall: Soft tissues surrounding the chest wall demonstrate no acute findings. Osseous structures demonstrate degenerative change. CT/CT lung screening low-dose IMPRESSION: NO SUSPICIOUS PULMONARY NODULE. LUNG - RADS Version 1.0 Assessment: Category 1, Negative (No nodules and definitely benign nodules). Management: Continue annual lung screening with LDCT in 12 months. Impression dictated by: Alfredo Branham Jr., D.O.12/08/2024 10:01 AM Dictation Location: [place] [address] Electronically authenticated by: [id number] Y Date: 12/08/2024 10:01
== END 2024-12-08 08:43 | disposition home or self-care (01) ==
LOC: CT 08:42
PROVIDERS: PCP Family Medicine; Visit Provider Internal Medicine Hematology & Oncology
DX: D64.9 Anemia, unspecified (principal); R91.1 Solitary pulmonary nodule; Z13.71 Encounter for nonprocreative screening for genetic disease carrier status; R79.0 Abnormal level of blood mineral; F17.210 Nicotine dependence, cigarettes, uncomplicated
CPT/HCPCS: 71271

== ENCOUNTER 2025-05-31 10:34 | Outpatient (RCR) | payer OTHER, SELFPAY ==
[2025-05-29 10:37] LABS: Hematocrit 44.8 % (42.0-54.0); Hemoglobin 15.6 g/dL (14.0-18.0); Immature Granulocytes Abs Auto 0.02 10^3/uL (0.00-0.03); Immature Granulocytes Pct Auto 0.3 % (0.0-0.5); Lymphocytes Absolute Auto 1.1 10^3/uL (1.2-3.8); Mean Corpuscular HGB Conc 34.8 g/dL (29.9-35.2); Mean Corpuscular Hemoglobin 31.8 pg (25.9-34.0); Mean Corpuscular Volume 91.2 fL (80.0-94.0); Platelet Count 224 10^3/uL (150-450); Red Blood Count 4.91 10^6/uL (4.70-6.10); White Blood Count 5.9 10^3/uL (4.0-11.0)
[2025-05-29 11:13] LABS: Alanine Aminotransferase 22 U/L (16-63); Albumin Globulin Ratio 0.9; Albumin Level 3.9 g/dL (3.4-5.0); Alkaline Phosphatase 94 U/L (46-116); Anion Gap 12.8; Aspartate Amino Transferase 15 U/L (15-37); Blood Urea Nitrogen 20.0 mg/dL (7.0-18.0); Calcium 9.4 mg/dL (8.5-10.1); Carbon Dioxide 28.8 mmol/L (21.0-32.0); Chloride 103 mmol/L (98-107); Estimated GFR (African America >60 (>=60 mL/min/1.73m^2); Estimated GFR (Non-African Ame >60 (>=60 mL/min/1.73m^2); Globulin 4.2 g/dL; Glucose 119 mg/dL (74-106); Potassium 4.6 mmol/L (3.5-5.1); Sodium 140 mmol/L (136-145); Total Protein 8.1 g/dL (6.4-8.2)
[2025-05-29 12:08] LABS: Iron 117.0 ug/dL (65.0-175.0); Percent Iron Saturation 34.8 %; Total Iron Binding Capacity 336.0 ug/dL (250.0-450.0)
[2025-05-29 12:26] LABS: Ferritin 170.0 ng/mL (26.0-388.0)
[2025-05-31 10:35] VITALS: BP 126/84; PULSE 74; TEMP 36.8; TEMP 37.1; O2SAT 97
== END 2025-06-19 23:59 | disposition home or self-care (01) ==
LOC: HEMC 10:34
PROVIDERS: PCP Family Medicine; Visit Provider Internal Medicine Hematology & Oncology
DX: R91.1 Solitary pulmonary nodule (principal); D64.9 Anemia, unspecified; Z13.71 Encounter for nonprocreative screening for genetic disease carrier status; F17.210 Nicotine dependence, cigarettes, uncomplicated; N40.1 Benign prostatic hyperplasia with lower urinary tract symptoms; R97.20 Elevated prostate specific antigen [PSA]; E83.119 Hemochromatosis, unspecified
CPT/HCPCS: 36415; 80053; 82728; 83540; 83550; 85025; 99195; G0463

== ENCOUNTER 2025-08-24 09:08 | Outpatient (OUT) | payer OTHER, SELFPAY ==
--- OUTSIDE RECORDS SUMMARY | 2025-08-24 09:16 | XMS_ITS | CCD ---
Author Organization [facility]ini[facility] Care Team Providers Care Process Helper Name Role Phone DR JAMESON MACIAS Admitting [...] SUH, DR LISSETTE Camacho Primary Care Unavailable AUBURNDALE, DR EUGENIA Prado Consulting Unavailable SUH, DR LISSETTE Camacho Consulting Unavailable LISSETTE [facility]H Primary Care Physician MD Lissette Suh Primary Care Provider [phone] MD Jameson Macias Attending Provider Lissette Suh Unavailable [facility] Unavailable Jameson MACIAS Attending Unavailable Jameson MACIAS Attending Unavailable AUBRIE PEDRO Attending Unavailable Jameson MACIAS Admitting Unavailable Jameson MACISA Attending Unavailable MACIASJameson Attending Unavailable WILLIS, AUBRIE Attending Unavailable WILLIS, AUBRIE Attending Unavailable MACIAS, Jameson Kay Attending Unavailable MACIASJameson Admitting Unavailable Lissette Suh MD Primary Care Provider Maria Victoria Vanegas MD Attending Provider [phone] Lissette Suh MD Attending Provider [phone] Allergies Allergy ClassificationReported Allergen(s)Allergy TypeDate of OnsetReaction(s) Facility (6 sources)patient allergy list reviewed by nurse or physiciaPropensity to adverse rpydzncwj35-23-4946Bdytirg:[facility] Other (6 sources)Allergies ReconciledPropensity to adverse reactionsLafayette [facility] Center [employer] Other Medications Current Medications MedicationDrug Class(es)DatesSig (Normalized)Sig (Original)acetaminophen 325 mg / HYDROcodone bitartrate 7.5 mg oral tablet (7 sources)Opioid AgonistStart: 71-74-4845frhb 1 tablet by mouth once, then take 1 tablet by mouth every hourNorco 325 mg-7.5 mg oral tablet 1 tab(s), Oral, Once, 1 tab(s), Refill(s) 0, Take 1 hour prior to procedure. Don't drive or operate machinery while taking this medication. Have a shag truck driver to and from pr ocedure., [facility] #[id number], 175, cm, 05/01/22 10:32:00 EDT, Height/Length Dosing,... Start Date: 11/19/22 Status: OrderedStart: 13-61-2515tenh 1 tablet by mouth once, then take 1 tablet by mouth every hourNorco 325 mg-7.5 mg oral tablet 1 tab(s), Oral, Once, 1 tab(s), Refill(s) 0, Take 1 hour prior to pr ocedure. Don't drive or operate machinery while taking., [facility] #[id number], 175, cm, 01/19/22 9:56:00EDT, Height/Length Dosing, 55.5, kg, 01/19/22 9:56:00 EDT, Weight Dosing Start Date: 04/08/22 Status: Orderedtake 1 tablet by mouth every hourHYDROcodone-Acetaminophen 7.5-325 MG take 1 tablet by mouth 1 hour prior to procedure DO NOT DRIVE WHILE TAKING MEDICATION Oral for 1 Days Not-Takingacetic acid 20 mg/ml / hydrocortisone 10 mg/ml otic solution (1 source)CorticosteroidStart: 05-95-7794Lopvntczqvlkhw-Acetic Acid 1-2 % 5 drops into affected ear left ear Three times a day for 7 days 2022 Active ciprofloxacin 500 mg oral tablet (12 sources)Quinolone AntimicrobialStart: 06-23-2024 End: 41-94-0600hpnp 1 tablet by mouth twice dailyCipro 500 mg Tab 500 mg = 1 tab(s), Oral, BID, X 3 week(s), # 42 tab(s), Refills(s) 0, Pharmacy: [id number], 172, cm, 06/23/24 9:48:00 EDT, Height/Length Dosing, 55.2, kg, 06/23/24 9:48:00 EDT, Weight Dosing Start Date: 06/23/24 Stop Date: 07/14/24 Status: OrderedStart: 11-19-2022 End: 81-78-6969Zqmjc 500 mg Tab 500 mg = 1 tab(s), Oral, q12hr, Start 3 days prior to procedure, X 7 day(s), # 14 tab(s), Refills(s) 0, Pharmacy: [facility] #[id number], 175, cm, 05/01/22 10:32:00 EDT, Height/Length Dosing, 55.5, kg, 05/01/22 10:32:00 EDT, Weight Dosing Start Date: 11/19/22 Stop Date: 11/26/22 Status: Ordered Start: 04-08-2022 End: 67-91-3892Jfsvx 500 mg Tab 500 mg = 1 tab(s), Oral, q12hr, Start 3 days prior to procedure, X 7 day(s), # 14 tab(s), Refills(s) 0, Pharmacy: [facility] #[id number], 175, cm, 01/19/22 9:56:00 EDT, Height/Length Dosing, 55.5, kg, 01/19/22 9:56:00 EDT, Weight Dosing Start Date: 04/08/22 Stop Date: 04/15/22 Status: Ordere dtake 1 tablet by mouth every twelve hoursCiprofloxacin HCl 250 MG 1 tablet Orally every 12 hrs for 5 days Activedutasteride 0.5 mg oral capsule (2 sources)5-alpha Reductase InhibitorStart: 03-98-1672ugzx 1 capsule by mouth once dailydutasteride 0.5 mg Cap 0.5 mg = 1 cap(s), Oral, Daily, # 90 cap(s), Refills(s) 3, Pharmacy: [id number], 172, cm, 08/04/24 11:47:00 EST, Height/Length Dosing, 55, kg, 08/04/24 11:47:00EST, Weight Dosing Start Date: 08/04/24 Status: Ordered Quantity: 90.0 Unit: cap(s) Repeat number: 4 tadalafil 5 mg oral tablet (20 sources)Phosphodiesterase 5 InhibitorStart: 66-99-2172fffbstnjm 5 mg oral tablet See Instructions, 1 tab po 30-60 mins prior to sexual activity. Do not ex ceed 4 tabs/20mg in 48 hrs., # 30 tab(s), Refills(s) 3, Pharmacy: [id number], 172, cm, 02/02/25 8:31:00 EDT, Height/Length Dosing, 55.7, kg, 02/02/25 8:31:00 EDT, Weight Dosing Start Date: 02/02/25 Status: Ordered Quantity: 30.0 Unit: tab(s) Repeat number: 4Start: 79-01-8815pbyx 1 tablet by mouth every hourtadalafil 5 mg oral tablet 5 mg = 1 tab(s), Oral, As Directed, Take one tab 1 hr prior to sexual activity., # 90 tab(s), Refills(s) 3, Pharmacy: [facility] #[id number], 172, cm, 12/20/23 9:07:00 EDT, Height/Length Dosing, 55, kg, 12/20/23 9:07:00 EDT, Weight Dosing Start Date: 12/20/23 Status: Ordered Quantity: 90.0 Unit: tab(s) Repeat number: 4Start: 06-21-0567sadc 1 tablet by mouth once dailyTadalafil 5 mg tablet Active 5 MG PO Daily November 10, 2023 1:00am Complies with drug therapytamsulosin hydrochloride 0.4 mg oral capsule (13 sources)alpha-Adrenergic BlockerStart: 00-62-4534zznv 1 capsule by mouth once dailytamsulosin 0.4 mg Cap 0.4 mg = 1 cap(s), Oral, Daily, # 90 cap(s), Refills(s) 3, Pharmacy: [facility] #[id number], 172, cm, 02/02/25 8:31:00 EDT, Height/Length Dosing, 55.7, kg, 02/02/25 8:31:00 EDT, Weight Dosing Start Date: 02/02/25 Status: Ordered Quantity: 90.0 Unit: cap(s) Repeat number: 4Start: 96-72-2988sksw 1 capsule by mouth once dailytamsulosin 0.4 mg Cap 0.4 mg = 1 cap(s), Oral, Daily, # 90 cap(s), Refills(s) 3, Pharmacy: [facility]#[id number], 172, cm, 12/20/23 9:07:00 EDT, Height/Length Dosing, 55, kg, 12/20/23 9:07:00 EDT, Weight Dosing Start Date: 12/20/23 Status: Ordered Quantity: 90.0 Unit: cap(s) Repeat number: 4Start: 12-22-2021 End: 62-11-2793eneb 1 capsule by mouth once dailyFlomax 0.4 mg Cap 0.4 mg = 1 cap(s), Oral, Daily, X 30 day(s), # 30 cap(s), Refills(s) 11, Pharmacy: [facility] #[id number], 172, cm, 11/23/22 10:42:00 EST, Height/Length Dosing, 55, kg, 11/23/22 10:42:00 EST, Weight Dosing Start Date: 11/23/22 Stop Date: 11/18/23 Status: Ordered Completed/Discontinued Medications MedicationDrug Class(es)DatesSig (Normalized)Sig (Original)sulfamethoxazole 800 mg / trimethoprim 160 mg oral tablet (4 sources)Dihydrofolate Reductase Inhibitor Antibacterial, Sulfonamide AntimicrobialSulfamethoxazole-Trimethoprim 800-160 MG take 1 tablet by mouth twice a day for 3 WEEKS Oral for 21Days Not-Taking Problems Active Problems Problem ClassificationProblemDateDocumented DateEpisodic/ChronicCancer of prostate (5 sources)Carcinoma in situ of prostate; Translations: [Carcinoma in situ of prostate]Onset: 51-05-9752KxqfpwrKfidjdgpsf and other anemia (2 sources)Anemia; Translations: [Anemia, unspecified]26-37-1048EaozfterZxsmq of unknown origin (2 sources)Fever, unspecifiedEpisodicFluid and electrolyte disorders (2 sources)Dehydration; Translations: [Dehydration]00-63-8868Ysppcnij Genitourinary symptoms and ill-defined conditions (6 sources)Difficulty passing urine; Translations: [Other difficulties with micturition]Onset: 65-54-8798TfkansjdOxysypphukg of prostate (20 sources)Benign prostatic hyperplasia without lower urinary tract symptoms; Translations: [Benign prostatic hypertrophy without outflow obstruction]Onset: 96-67-4870WaentwiQonpqowjdlju conditions of male genital organs (13 sources)Prostatitis; Translations: [Inflammatory disease of prostate, unspecified]Onset: 42-15-5930MpimjkpzYhdgnfzjcwydp mental health disorders (6 sources)Psychosexual dysfunction associated with inhibited sexual excitement; Translations: [Psychosexual dysfunction with inhibited sexual excitement]Onset: 84-07-6798UjymygfQqrmd connective tissue disease (15 sources)Pain in right foot; Translations: [Pain in right foot]EpisodicOther diseases of kidney and ureters (1 source)Urinary tract obstruction; Translations: [Other obstructive and reflux uropathy]Onset: 23-94-2693XmbzskaaVyyyp ear and sense organ disorders (1 source)Otitis externa in other diseases classified elsewhere, left earChronic Other ear and sense organ disorders (1 source)Impacted cerumen, bilateralEpisodicOther ear and sense organ disorders (1 source)Impacted cerumen, right earEpisodicOther ear and sense organ disorders (1 source)Impacted cerumen, left earEpisodicOther male genital disorders (20 sources)Male erectile dysfunction, unspecified; Translations: [Erectile dysfunction]Onset: 23-11-1694BvzjftgPlicx male genital disorders (6 sources)Prostatic intraepithelial dljnsdnik48-73-1890JxgauvloGizjk male genital disorders (1 source)Dysplasia of prostate; Translations: [Atypical small acinar proliferation of prostate]Onset: 72-01-9261NgrdvtrvHktpf male genital disorders (1 source)Atypical small acinar proliferation of ymctoqgh23-74-5101MzocnnbaApvnw nutritional; endocrine; and metabolic disorders (2 sources)Abnormal weight loss; Translations: [Abnormal weight loss]11-16-2023 EpisodicOther screening for suspected conditions (not mental disorders or infectious disease) (20 sources)Encounter for screening for malignant neoplasm of prostate; Translations: [Raised prostate specificantigen]Onset: 00-83-8402WqrevzlcTxcumiw detachments; defects; vascular occlusion; and retinopathy (6 sources)Degenerative disorder of macula ; Translations: [Unspecified macular degeneration]Onset: 65-73-5343TeszjxeDyiozmdpfzf; intervertebral disc disorders; other back problems (20 sources)Degeneration of lumbosacral intervertebral disc; Translations: [Other intervertebral disc degeneration, lumbosacral region]Onset: 05-04-2019 ChronicSpondylosis; intervertebral disc disorders; other back problems (20 sources)Lumbar radiculopathy; Translations: [Radiculopathy, lumbar region] Onset: 82-00-7078ZaibagegUoksbhxar-related disorders (17 sources)Smoker; Translations: [Nicotine dependence]Onset: 05-04-2019 05-13-5871RwlbgowQuusojf on above:Added secondary to documentation in Social History.Urinary tract infections (2 sources)Urinary tract infectious disease; Translations: [Urinary tract infection, site not specified]41-46-2280Zwovgluu Past or Other Problems Problem ClassificationProblemDateDocumented DateEpisodic/ChronicImmunizations and screening for infectious disease (6 sources)Vaccination given; Translations: [Encounter for immunization]Onset: 31-03-9471QkxhxkvgQuelf connective tissue disease (4 sources)Pain in right foot; Translations: [PAIN IN RIGHT FOOT]Onset: 83-68-3478TejrpnmrPsbjm ear and sense organ disorders (6 sources)Impacted cerumen; Translations: [Impacted cerumen, unspecified ear] Onset: 31-30-1650YemfsauwEenfk non-traumatic joint disorders (6 sources)Shoulder joint pain; Translations: [Pain in right shoulder]Onset: 88-50-5585PeonfybwDprdu nutritional; endocrine; and metabolic disorders (6 sources)Body mass index less than 20; Translations: [Body mass index (BMI) 19.9 or less, adult]Onset: 17-71-5521LvckadfgPdyho nutritional; endocrine; and metabolic disorders (6 sources)Underweight; Translations: [Underweight]Onset: 69-11-5170Zfehblgl Results Test NameValueInterpretationReference RangeFacilityBasophils Auto (Bld) [#/Vol] Ordered By: Maria Victoria Vanegas on 39-87-2498Btcydynyt (Bld) [#/Vol]0.0 10 3/uL 0.0-0.1FSheltering Arms HospitalBasophils/100 WBC Auto (Bld)Ordered By: Maria Victoria Vanegas on 73-75-8022Useppwwxm/100 WBC (Bld)0.5 %0.2-2.0[facility] HospitalEosinophils/100 WBC Auto (Bld)Ordered By: Maria Victoriaaspen Vanegas on 23-77-9935Mekkjplhgwu/100 WBC (Bld)2.5 %0.9-7.0[facility]S HospitalErythrocyte distribution width Auto (RBC) [Ratio]Ordered By: Maria Victoria Guilherme on 26-47-7235Iatmaslwkjh distribution width (RBC) [Ratio]13.2 %11.0-15.0 [facility] HospitalGlobulin Calc (S) [Mass/Vol]Ordered By: Maria Victoria Vanegas on 43-92-3625Qlmdvmun (S) [Mass/Vol]4.2 g/dLAkron Children'S HospitalGlomerular filtration rate (GFR) estimation in non- AmericanOrdered By: Maria Victoria Vanegas on 43-23-7078LDG/1.73 sq M.predicted among non-blacks MDRD (S/P/Bld) [Vol rate/Area]mL/min/{1.73_m2}>=60 mL/min/1.73m 2FSheltering Arms HospitalHematocrit Auto (Bld) [Volume fraction]Ordered By: Maria Victoria Vanegas on 13-69-4813Ekqsvmwiiv (Bld) [Volume fraction]44.8 %42.0-54.0[facility] HospitalHemoglobin [Mass/volume] in BloodOrdered By: Maria Victoriajanice Vanegas on 27-44-9457Gijkdrrzws (Bld) [Mass/Vol]15.6 g/dL14.0-18.0[facility] HospitalIron binding capacity [Mass/volume] in Serum or PlasmaOrdered By: Maria Victoria Cooperwla on 33-84-0622Wufk binding capacity [Mass/Vol]336.0 ug/dL 250.0-450.0[facility] HospitalIron saturation [Mass Fraction] in Serum or PlasmaOrdered By: Maria Victoria Guilherme on 93-14-0230Ekyb saturation [Mass fraction]34.8 %[facility] HospitalLaboratory - Chemistry and Chemistry - challengeOrdered By: Maria Victoriajanice Vanegas on 06-91-6395Lxezejo [Mass/Vol] 3.9 g/dL3.4-5.0[facility]S HospitalALP [Catalytic activity/Vol]94 U/B45-397OervlobmzAkron Children'S HospitalALT [Catalytic activity/Vol]22 U/L 16-63[facility] HospitalAST [Catalytic activity/Vol]15 U/L15-37 [facility] HospitalBilirubin [Mass/Vol]0.8 mg/dL0.2-1.0[facility] HospitalCalcium [Mass/Vol]9.4 mg/dL8.5-10.1FSheltering Arms HospitalChloride [Moles/Vol]103 mmol/Q71-768NewzysuuaAkron Children'S HospitalCO2 [Moles/Vol]28.8 mmol/L21.0-32.0[facility] Creatinine [Mass/Vol]1.08 mg/dL0.70-1.30[facility] Ferritin [Mass/Vol]170.0 ng/mL26.0-388.0[facility] GFR/1.73 sq M.predicted MDRD (S/P/Bld) [Vol rate/Area]mL/min/{1.73_m2}>=60 mL/min/1.73m 2FSheltering Arms HospitalGlucose [Mass/Vol]119 mg/dLHigh 74-106[facility] HospitalIron [Mass/Vol]117.0 ug/dL65.0-175.0 [facility] HospitalPotassium [Moles/Vol]4.6 mmol/L3.5-5.1FSheltering Arms HospitalProtein [Mass/Vol]8.1 g/dL6.4-8.2FWhite Hospitalodium [Moles/Vol]140 mmol/L339-563VbehwkodpAkron Children'S HospitalUrea nitrogen [Mass/Vol]20.0 mg/dLHigh7.0-18.0[facility] HospitalUrea nitrogen/Creatinine [Mass ratio]18.5 mg/mgAkron Children'S HospitalLaboratory - Hematology and Cell countsOrdered By: Maria Victoria Vanegas on 35-39-8312Bctqoxoq granulocytes/100 WBC (Bld)0.3 %0.0-0.5FSheltering Arms HospitalLeukocytes [#/volume] corrected for nucleated erythrocytes in Blood by Automated counOrdered By: Maria Victoria Vanegas on 24-41-5074NFB corrected for nucl RBC Auto (Bld) [#/Vol]5.9 10 3/uL4.0-11.0[facility] Lymphocytes Auto (Bld) [#/Vol]Ordered By: Maria Victoria Guilherme on 05-29-2025 Lymphocytes (Bld) [#/Vol]1.1 10 3/uLLow1.2-3.8[facility] Lymphocytes/100 WBC Auto (Bld)Ordered By: Maria Victoria Vanegas on 05-29-2025 Lymphocytes/100 WBC (Bld)18.1 %Low20.5-60.0[facility] HospitalH Auto (RBC) [Entitic mass]Ordered By: Maria Victoria Guilherme on 89-62-8429JTW (RBC) [Entitic mass]31.8 pg25.9-34.0[facility]S HospitalMCHC Auto (RBC) [Mass/Vol]Ordered By: Maria Victoria Guilherme on 15-03-6530TSTC (RBC) [Mass/Vol]34.8 g/dL 29.9-35.2FSheltering Arms HospitalMCV Auto (RBC) [Entitic vol]Ordered By: Maria Victoria Guilherme on 40-27-5485FFX (RBC) [Entitic vol]91.2 fL80.0-94.0[facility] HospitalMonocytes Auto (Bld) [#/Vol]Ordered By: Maria Victoria Guilherme on 95-22-0508Phzzwzjfl (Bld) [#/Vol]0.3 10 3/uL0.3-0.8[facility] HospitalMonocytes/100 WBC Auto (Bld)Ordered By: Maria Victoria Guilherme on 05-29-2025 Monocytes/100 WBC (Bld)5.6 %1.7-12.0[facility]S HospitalNeutrophils Auto (Bld) [#/Vol]Ordered By: Maria Victoriajanice Vanegas on 07-18-4500Psnqkydznnr (Bld) [#/Vol]4.3 10 3/uL1.4-6.5FSheltering Arms HospitalNeutrophils/100 WBC Auto (Bld)Ordered By: Maria Victoria Guilherme on 76-05-2453Rkgdkgvnblh/100 WBC (Bld)73.0 %43.0-75.0[facility] HospitalNo Panel InformationOrdered By: Maria Victoria Vanegas on 91-55-8586Rhkoetflvrv # (Auto)0.2 10 3/uL0.0-0.7FSheltering Arms HospitalImmature Granulocyte # (Auto)0.02 10 3/uL0.00-0.03 [facility]S HospitalPlatelet mean volume Auto (Bld) [Entitic vol] Ordered By: Maria Victoria Guilherme on 73-93-3995Sziipxdg mean volume (Bld) [Entitic vol] 10.1 fL9.5-13.5FSheltering Arms HospitalPlatelets Auto (Bld) [#/Vol] Ordered By: Maria Victoria Guilherme on 35-15-7335Rreunetfm (Bld) [#/Vol]224 10 3/uL 150-450[facility]S HospitalRBC Auto (Bld) [#/Vol]Ordered By: Maria Victoria Guilherme on 51-20-2457TBI (Bld) [#/Vol]4.91 10 6/uL4.70-6.10[facility] Hospitalerum or plasma albumin/globulin mass ratioOrdered By: Maria Victoria Vanegas on 08-73-7066Hhbmgoa/Globulin [Mass ratio]0.9 {ratio}[facility] Hospitalerum or plasma anion gap determinationOrdered By: Maria Victoria Vanegas on 48-11-7267Ardoe gap [Moles/Vol]12.8 mmol/LFSheltering Arms HospitalAmbulatory Visit Summaryon 86-24-5277Pcumrgihfe Visit Summary Ambulatory Visit Summary RFAFI MATHEW :1955 Visit Date:02/02/2025 Ambulatory Visit Instructions Your Diagnosis Elevated PSA ED (erectile dysfunction) BPH with urinary obstruction Your Care Team Attending Physician - WILLIS RAYA, AUBRIE Camacho Primary Care Physician - LISSETTE SUH MD This Is Your Medications List tadalafil (tadalafil 5 mg oral tablet) tamsulosin (tamsulosin 0.4 mg Cap) Procedures Performed Transrectal biopsy of prostate using ultrasound (US) guidance (12/01/2022), Transrectal biopsy of prostate using ultrasound (US) guidance (04/14/2022), Bilateral inguinal hernia repair (07/10/2013), Colonoscopy (2011). Discharge Vitals Temperature (Oral) 36.5 ???C Heart Rate (Peripheral) 68 Respiratory Rate 18 Blood Pressure 120/80 Height 172 cm Height 68 in Weight 55.7 kg Weight 122.797 lb BMI 18.83 Medications What How Much When Instructions Unchanged tadalafil (tadalafil 5 mg oral tablet) 1 Tablets By Mouth As Directed Take one tab 1 hr prior to sexual activity. Unchanged tamsulosin (tamsulosin 0.4 mg Cap) 1 Capsules By Mouth Every day Allergies No Known Allergies Problems Ongoing - [...] you for choosing us for your care. [facility] RehabilitationUrology Office/Clinic Noteon 19-32-7116Drpmewa Office/Clinic NoteUrology Office/Clinic Note Chief Complaint 6 mth w/ PSA HPI Staff 69 yr old male here for 6 mth f/u with PSA Dx: PIN III, prostatitis, BPH with urinary obstruction and ED PSA 08/01/24 - 3.88 01/26/25 - 3.4 & 29.4% (1.0) Tamsulosin QD and Tadalafil 5mg PRN pt denies any urinary issues today Review of Systems PHQ Score Initial Depression Screen Score: 0 SCORE no fever, chills, malaise, myalgia. no rash/lesions. no chest pain, palpitations, or SOB. no abdominal pain, nausea, vomiting. Physical Exam Vitals & Measurements T: 36.5 ???C(Oral) HR: 68(Peripheral) RR: 18 BP: 120/80 HT: 68 in HT: 172 cm WT: 122.797 lb WT: 55.7 kg BMI: 18.83 General: nontoxic, NAD Mouth: moist mucosa Lungs: normal respiratory effort Cardio: regular rate, good distal perfusion Abdomen: nondistended Neurologic: Grossly normal Skin: No rashes or suspicious lesions Assessment/Plan Unable to void IO today but denies UTI sx or gross hematuria. 1. 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 S/p TRUS/bx 04/14/22. Path report shows SIXTO in the right lateral base. S/p TRUS/bx 12/01/22. Pathology neg for malignancy. Patchy chronic inflammation left lateral apex and left mid. SARA 12/20/23: ~50g, benign. PSA was elevated drastically Jun 2024. Pt was treated for prostatitis, PSA level decreased drastically. Currently it is stable. Repeat PSA 1 yr. Ordered: PSA Total 2. ED (erectile dysfunction) (N52.9: Male erectile dysfunction, unspecified) Pt has been taking Cialis 5mg PRN. This is effective and pt is satisfied with results. Pt reports no intolerable side effects. Pt has had no new cardiac events since last f/u. Pt does not take Nitro and knows not to start. Discussed options: increase dose, dc & switch to alternative medication, dc completely. Pt wishes to: continue current dosing with no changes. Pt does need refills at this time. Ordered: 3. BPH with urinary obstruction (N40.1: Benign prostatic hyperplasia with lower urinary tract symptoms) IPSS _4 QOL _1 Pt is taking tamsulosinand is highly satisfiedwith overall symptom control. Pt is experiencing noside effects. At last ov Jul 2024 PRW started pt on Dutasteride. Looks like pt filled this once. However he states he never started taking it. As his sx are well controlled, he'd prefer not to start it. Pt prefers to continue current regimen with no changes at this time. Risks/benefits/side effects discussed. Pt doesneed refills. Ordered: Body Mass Index (BMI) documented 3008F Current tobacco smoker 1034F Depression Screening Negative 3352F Influenza immunization status assessed 1030F Medication list documented in medical record 1159F Most recent diastolic blood pressure <80 mm Hg 3078F Patient screen for fall risk: no falls in last year or 1 fall with no injury in last year 1101F Review of all meds by a prescribing practitioner or clinical pharmacist documented in EHR 1160F Screened for tobacco use AND received tobacco cessation intervention 4004F Systolic BP <130 mm Hg (Most Recent) 3074F Follow-up With When Contact Information WILLIS RAYA, AUBRIE Camacho, URL In 1 year [address] [place] [address] Additional Instructions: Patient Education Benign Prostatic Hyperplasia Problem List/Past Medical History Ongoing Atypical small acinar proliferation of prostate BPH with urinary obstruction ED (erectile dysfunction) Prostatitis Smoker Historical BPH (benign prostatic hyperplasia) Elevated PSA Infrequent urination Procedure/Surgical History Transrectal biopsy of prostate using ultrasound (US) guidance (12/01/2022), Transrectal biopsy of prostate using ultrasound (US) guidance (04/14/2022), Bilateral inguinal hernia repair (07/10/2013), Colonoscopy (2011). Medications tadalafil 5 mg oral tablet, 5 mg= 1 tab(s), Oral, As Directed, 3 refills tamsulosin 0.4 mg Cap, 0.4 mg= 1 cap(s), Oral, Daily, 3 refills Allergies No Known Allergies Social History Alcohol Past. Beer. 1-2 times per year., 08/04/2024 Substance Abuse Never., 08/04/2024 Tobacco 5-9 cigarettes (between 1/4 to 1/2 pack)/day in last 30 days Tobacco Use:. Never Smokeless Tobacco Use:. Cigarettes, Ready to change: No. Household tobacco concerns: No. Yes, 02/02/2025 Family History Cancer: Mother and Brother. Heart disease: Mother, Father and Brother. Immunizations Vaccine Date Status SARS-CoV-2 (COVID-19) mRNA BNT-162b2 vax 09/09/2021 Recorded SARS-CoV-2 (COVID-19) mRNA BNT-162b2 vax 01/21/2021 Recorded SARS-CoV-2 (COVID-19) mRNA BNT-162b2 vax 12/31/2020 Recorded zoster vaccine live 10/13/2015 RecordedNoOhio State Health SystemComment on above:Result Comment: Electronically Signed By: AUBRIE PEDRO PA-C\.br\Date and Time Signed: 02/03/2508:54 EDTAmbulatory Visit Summaryon 82-15-8523Ksxyiwvqwk Visit SummaryAmbulatory Visit Summary RAFFI MATHEW :1955 Visit Date:01/26/2025 Ambulatory Visit Instructions Your Care Team Attending Physician - LAKISHA HOUSTON, Jameson Kay Primary Care Physician - ANGELI HOUSTON, LISSETTE This Is Your Medications List dutasteride (dutasteride 0.5 mg Cap) tadalafil (tadalafil 5 mg oral tablet) tamsulosin (tamsulosin 0.4 mg Cap) Procedures Performed Transrectal biopsy of prostate using ultrasound (US) guidance (12/01/2022), Transrectal biopsy of prostate using ultrasound (US) guidance (04/14/2022), Bilateral inguinal hernia repair (07/10/2013), Colonoscopy (2011). What to do next Scheduled Follow-Up Appointments Wednesday 8:20 AM EDT With: AUBRIE PEDRO PA-C Where: [facility] [place] [id number]- Medications What How Much When Instructions Unchanged dutasteride (dutasteride 0.5 mg Cap) 1 Capsules By Mouth Every day Unchanged tadalafil (tadalafil 5 mg oral tablet) 1 Tablets By Mouth As Directed Take one tab 1 hr prior to sexual activity. Unchanged tamsulosin (tamsulosin 0.4 mg Cap) 1 Capsules By Mouth Every day Allergies No Known Allergies Problems Ongoing - [...] you for choosing us for your care. NormalScci Hospital LimaCHEMISTRYOrdered By: SYSTEM SYSTEM on 37-49-0598Sgqk PSA [Mass/Vol]1.0 ng/mLInvalid Interpretation Code Remisol ChemComment on above:Interpretive Data: The concentration of free PSA and total PSA determined with assays from different manufacturers can vary due to differences in assay methods and specificity. Values obtained with different call or contact centre manager's assays cannot be used interchangeably. The methodology used to obtain this result was chemiluminescence using [employer]'s Access Hybritech PSA reagent and Access Hybritech free PSA reagent.Free PSA/Total PSA [Mass fraction]29.4 %Normal>=25.0%Remisol ChemProstate specific Ag [Mass/Vol]3.4 ng/mLNormal0.1 - 3.5 ng/mLRemisol ChemComment on above:Interpretive Data: The concentration of PSA determined by different manufacturers can vary due to di fferences in assay methods and reagent specificity. Values obtained from different assay methods cannot be used interchangeably. The methodology used for this result was chemiluminescence using [employer]'s Access Hybritech PSA reagent.Basophils Auto (Bld) [#/Vol]on 19-97-2499Iarcsbpdg (Bld) [#/Vol] Automated basophil count0.0-0.1FSheltering Arms HospitalBasophils/100 WBC Auto (Bld)on 24-30-2429Geahribqo/100 WBC (Bld)Automated basophil %0.2-2.0 [facility] HospitalEosinophils/100 WBC Auto (Bld)on 11-20-2024 Eosinophils/100 WBC (Bld)Automated eosinophil %0.9-7.0[facility] HospitalErythrocyte distribution width Auto (RBC) [Ratio]on 53-15-5829Hpdbqkgkluc distribution width (RBC) [Ratio]Erythrocyte distribution width [Ratio] by Automated count11.0-15.0[facility] HospitalEstimated glomerular filtration rate (GFR) non- Americanon 70-86-0341OEO/1.73 sq M.predicted among non-blacks MDRD (S/P/Bld) [Vol rate/Area]Estimated glomerular filtration rate (GFR) non->=60 mL/min/1.73m 2FSheltering Arms HospitalGlobulin Calc (S) [Mass/Vol]on 90-57-6120Qpkytdlp (S) [Mass/Vol]Serum globulin measurement by calculation (mass/volume)[facility] HospitalHematocrit Auto (Bld) [Volume fraction]on 13-82-4757Ybkzovcmjn (Bld) [Volume fraction]Hematocrit [Volume Fraction] of Blood by Automated countLow 42.0-54.0[facility] HospitalHemoglobin [Mass/volume] in Bloodon 84-66-5716Atjuaqpsdu (Bld) [Mass/Vol]Hemoglobin [Mass/volume] in BloodLow 14.0-18.0[facility] HospitalIron binding capacity [Mass/volume] in Serum or Plasmaon 17-08-3971Njpk binding capacity [Mass/Vol]Iron binding capacity [Mass/volume] in Serum or Uwdwrb774.0-450.0[facility] HospitalIron saturation [Mass Fraction] in Serum or Plasmaon 69-26-1018Yruj saturation [Mass fraction]Iron saturation [Mass Fraction] in Serum or Plasma [facility] HospitalLaboratory - Chemistry and Chemistry - challengeon 28-30-6476Mzkuunc [Mass/Vol]3.3 g/dLLow3.4-5.0[facility] HospitalALP [Catalytic activity/Vol]98 U/W85-010EjbrlftfvAkron Children'S HospitalALT [Catalytic activity/Vol]20 U/K66-41DgrweegeaAkron Children'S Hospital AST [Catalytic activity/Vol]14 U/TBkw32-21ZtmcgmwzqAk[facility]'S Hospital Bilirubin [Mass/Vol]0.4 mg/dL0.2-1.0[facility] HospitalCalcium [Mass/Vol]9.0 mg/dL8.5-10.1FSheltering Arms HospitalChloride [Moles/Vol] 104 mmol/U92-196LcbnpbylqAkron Children'S HospitalCO2 [Moles/Vol]28.7 mmol/L 21.0-32.0[facility] HospitalCreatinine [Mass/Vol]1.15 mg/dL 0.70-1.30[facility] HospitalFerritin [Mass/Vol]246.0 ng/mL 26.0-388.0[facility] HospitalGFR/1.73 sq M.predicted MDRD (S/P/Bld) [Vol rate/Area]mL/min/{1.73_m2}>=60 mL/min/1.73m 2FSheltering Arms HospitalGlucose [Mass/Vol]90 mg/oA73-692EgdplknwnAkron Children'S Hospital Iron [Mass/Vol]63.0 ug/dLLow65.0-175.0[facility] HospitalPotassium [Moles/Vol]4.6 mmol/L3.5-5.1FSheltering Arms HospitalProtein [Mass/Vol] 7.2 g/dL6.4-8.2FWhite Hospitalodium [Moles/Vol]141 mmol/L 136-145[facility] HospitalUrea nitrogen [Mass/Vol]20.0 mg/dLHigh 7.0-18.0[facility] HospitalUrea nitrogen/Creatinine [Mass ratio] 17.4 mg/mgAkron Children'S HospitalLaboratory - Hematology and Cell countson 71-23-0301Esggoanb granulocytes/100 WBC (Bld)0.2 %0.0-0.5FSheltering Arms HospitalLeukocytes [#/volume] corrected for nucleated erythrocytes in Blood by Automated counon 42-85-3369XHR corrected for nucl RBC Auto (Bld) [#/Vol]Leukocytes [#/volume] corrected for nucleated erythrocytes in Blood by Automated coun4.0-11.0[facility] HospitalLymphocytes Auto (Bld) [#/Vol]on 85-12-5597Hijnnyhypys (Bld) [#/Vol]Lymphocytes [#/volume] in Blood by Automated count1.2-3.8[facility] HospitalLymphocytes/100 WBC Auto (Bld)on 41-57-2804Wwtqngpxgrp/100 WBC (Bld)Lymphocytes/100 leukocytes in Blood by Automated count20.5-60.0[facility] HospitalH Auto (RBC) [Entitic mass]on 54-51-3372LHV (RBC) [Entitic mass]MCH [Entitic mass] by Automated count25.9-34.0[facility] HospitalHC Auto (RBC) [Mass/Vol]on 83-28-6336HUOC (RBC) [Mass/Vol]MCHC [Mass/volume] by Automated count29.9-35.2FSheltering Arms HospitalMCV Auto (RBC) [Entitic vol]on 16-41-5274WNL (RBC) [Entitic vol]MCV [Entitic volume] by Automated count 80.0-94.0[facility] HospitalMonocytes Auto (Bld) [#/Vol]on 25-10-3852Qnidssnpm (Bld) [#/Vol]Automated blood monocyte count0.3-0.8[facility] HospitalMonocytes/100 WBC Auto (Bld)on 99-10-4176Qhboukbuf/100 WBC (Bld)Automated monocyte %1.7-12.0[facility] Neutrophils Auto (Bld) [#/Vol]on 65-30-3909Zqyvmoavpsq (Bld) [#/Vol]Neutrophils [#/volume] in Blood by Automated count1.4-6.5FSheltering Arms Hospital Neutrophils/100 WBC Auto (Bld)on 91-05-3802Wvsgnhgzoja/100 WBC (Bld)Automated neutrophil %43.0-75.0[facility] HospitalNo Panel Informationon 24-79-5210Deysgrexvnw # (Auto)0.1 10 3/uL0.0-0.7FSheltering Arms HospitalImmature Granulocyte # (Auto)0.01 10 3/uL0.00-0.03[facility] HospitalPlatelet mean volume Auto (Bld) [Entitic vol]on 53-29-9152Oqekyykx mean volume (Bld) [Entitic vol]Platelet mean volume [Entitic volume] in Blood by Automated count9.5-13.5FSheltering Arms HospitalPlatelets Auto (Bld) [#/Vol]on 54-44-8089Pefgvlgkb (Bld) [#/Vol]Platelets [#/volume] in Blood by Automated ygoih784-738JcelmeqqtAkron Children'S HospitalRBC Auto (Bld) [#/Vol]on 83-27-1436PHC (Bld) [#/Vol]Erythrocytes [#/volume] in Blood by Automated count Low4.70-6.10[facility] Hospitalerum or plasma albumin/globulin mass ratioon 25-47-1410Orkiacq/Globulin [Mass ratio]Serum or plasma albumin/globulin mass ratioCleveland Clinic Mentor Hospitalerum or plasma anion gap determinationon 01-29-6137Casyy gap [Moles/Vol]Serum or plasma anion gap determinationAkron Children'S HospitalAmbulatory Visit Summaryon 08-71-0983Cwepnbvmao Visit SummaryAmbulatory Visit Summary RAFFI MATHEW :1955 Visit Date:08/04/2024 Ambulatory Visit Instructions Your Diagnosis PIN III (prostatic intraepithelial neoplasia III) Prostatitis BPH with urinary obstruction ED (erectile dysfunction) Other obstructive and reflux uropathy Your Care Team Attending Physician - Jameson [...] to do next Scheduled Follow-Up Appointments Wednesday 8:30 AM EDT With: Jameson MACIAS MD Where: [facility] [address] [place] [address]- You Need to Schedule the Following Appointments Follow Up with Jameson MACIAS MD, URL When: In 6 months Comments: w/PSA Where: [facility] [address] , [facility] [place] [address]- Medications What How Much When Instructions New dutasteride (dutasteride 0.5 mg Cap) 1 Capsules By Mouth Every day Refills: 3 Pickup at [facility] Unchanged tadalafil (tadalafil 5 mg oral tablet) 1 Tablets By Mouth As Directed Take one tab 1 hr prior to sexual activity. Unchanged tamsulosin (tamsulosin 0.4 mg Cap) 1 Capsules By Mouth Every day Pharmacy Information [facility]: [address] [place] [phone] Allergies No Known Allergies Problems Ongoing - [...] gland that is caused by the normal agingprocess. The prostate may get bigger as a man gets older. The condition is not caused by cancer. The prostate is a walnut-sized gland that is involved in the production of semen. It is located in front of the rectum and below the bladder. The bladder stores urine. The urethra carries stored urine ou t of the body. An enlarged prostate can press on the urethra. This can make it harder to pass urine. The buildup of urine in the bladder can cause infection. Back pressure and infection may progress to bladder damage and kidney (renal) failure. What are the causes? This condition is part of the normal aging process. However, not all men develop problems from thiscondition. If the prostate enlarges away from the [...] waves to priya (more content not included)... [facility] for RehabilitationUrology Office/Clinic Noteon 03-47-0402Kxipbse Office/Clinic NoteUrology Office/Clinic Note Chief Complaint 6wk f/u HPI [...] with voice recognition artificial intelligence software, specifically [employer] and or [employer]. Substitutions may have occurred due to the [...] for refills. Follow-up With When Contact Information Jameson MACIAS MD, JOSEL In 6 months [facility] [address], [place] [address]- Additional Instructions: w/PSA Patient Education Benign Prostatic [...] Transrectal biopsy of prostat (more content not included)...[facility] for RehabilitationComment on above:Result Comment: Electronically Signed By: Jameson MACIAS MD\.br\Date and Time Signed: 08/04/24 12:31 EST\.br\Electronically Co-Signed By: Sheree Mcleod\.br\Date and Time Co-Signed: 08/04/24 12:30 ESTAmbulatory Visit Summaryon 21-07-3882Ucowggfauo Visit SummaryAmbulatory Visit Summary RAFFI MATHEW :1955 Visit Date:06/23/2024 Ambulatory Visit Instructions Your Diagnosis PIN III (prostatic intraepithelial neoplasia III) Prostatitis BPH with urinary obstruction ED (erectile dysfunction) Your Care Team Attending Physician - LAKISHA [...] Jameson MACIAS MD Where: [facility] [address] [address]- You Need to Schedule the Following Appointments Follow Up with Jameson MACIAS MD, URL When: Where: [address] [place] [address]- Medications What How Much When Instructions New ciprofloxacin (Cipro 500 mg Tab) 1 Tablets By Mouth 2 times a day Duration: 3 Weeks Pickup at [facility] Unchanged tadalafil (tadalafil 5 mg oral tablet) 1 Tablets By Mouth As Directed Take one tab 1 hr prior to sexual activity. Unchanged tamsulosin (tamsulosin 0.4 mg Cap) 1 Capsules By Mouth Every day Pharmacy Information [facility]: [address] [place], [place] [phone] Allergies No Known Allergies Problems Ongoing - [...] prostate gland, also called the prostate. This glandis about 1.5 inches wide and 1 inch [...] quickly and results from an acute bacterial infectionin the prostate gland. It is usually associated [...] when the body's disease-fighting system attacks healthy tissuein the body by mistake. ? Psychological factors. [...] Pain in the testi (more content not included)...[facility] RehabilitationUrology Office/Clinic Noteon 20-35-7318Msrolgh Office/Clinic NoteUrology Office/Clinic Note Chief Complaint PIN III HPI Staff 6 month f/u with PSA Dx: PIN III, BPH, infrequent urination and ED PSA: 11/12/21 - 5.46 01/12/22 - 3.74 11/16/23 - 5.75 06/20/24 - .38 Dysuria: denies Incomplete bladder emptying: denies Hematuria: [...] Contact Information LAKISHA HOUSTON, Jameson Kay, URL [address] [place] [address]- Additional Instructions: 6 weeks w/ PSA Patient [...] BNT-162b2 vax 12/31/2020 Recor (more content not included)...[facility] for RehabilitationComment on above:Result Comment: Electronically Signed By: Jameson MACIAS MD\.br\Date and Time Signed: 06/23/24 10:55 EDT\.br\Electronically Co-Signed By: Isela Zaldivar.br\Date and Time Co-Signed: 06/23/2410:54 EDTCreatinine (Bld) [Mass/Vol] Ordered By: Jameson Macias on 26-23-9016Zklnhhdspu [Mass/Vol]1.1 mg/dL0.6-1.3 [facility] HospitalComment on above:ER/ESD physician is notified/shown all ISTAT results. Critical values may be confirmed by laboratory testing if deemed necessary by ER attending doctor.ISTAT XRay CREon 37-37-7272Lpcuhtlyjq [Mass/Vol]1.1 mg/dLNormal0.6-1.3FSheltering Arms HospitalComment on above:Result Comment: ER/ESD physician is notified/shown all ISTAT results. Critical values may be confirmed by laboratory testing if deemed necessary by ER attending doctor.Performed By: #### ISCRE #### [facility] [address] [place] [address] Point of Care testing ,ISTAT GFR (> 60NormCleveland Clinic Euclid HospitalComment on above:Result Comment: GFR estimated reference range: According to KDOQI guidelines, <60 ml/min/1.73m2 is sufficient to diagnose a patient with chronic kidney disease. PERFORMED BY: [place] [address] PATHOLOGIST BENCH PATTERNMAKER METAL SALVADOR GRAYSON M.D.Performed By: #### ISCRE #### [address] Point of Care testing ,ISTAT GFR (Non- Am> 60NormCleveland Clinic Euclid HospitalComment on above:Performed By: #### ISCRE #### [address] Point of Care testing ,MR prostate wo/w conon 00-60-4153PB prostate wo/w [facility] [address] [place] [address] MRI Report Signed Patient: Raffi Mathew MR#: [id number] : 1955 Acct:[id number] Age/Sex: 66 / M ADM Date: 02/10/22 Loc: Room: Type: [facility] Attending Dr: Jameson Macias MD Ordering Provider: [...] Branham Jr., D.O.02/10/2022 9:34 AM Dictation Location: [facility]- Transcribed By: [facility] 02/10/22 0934 Dictated By: Alfredo Branham Jr, DO 02/10/2226 Signed By: 02/10/2234NoUC West Chester HospitalNo Panel InformationOrdered By: Jameson Macias on 12-40-6218FZB Estimated GFR > 60[facility] HospitalComment on above:GFR estimated reference range: According to KDOQI guidelines, <60 ml/min/1.73m2 is sufficient todiagnose a patient with chronic kidney disease.POC Estimated GFR Non- Amer> 60[facility] Vital Signs Date TimeVital SignValuePerforming AjzayswtsOaotzivn52-92-7624 10:51-0400Body uoborl347.26 cmLissette Suh MD Work Phone: [facility]10-23-2025 10:51-0400 Body mass index (BMI) [Ratio]17.4 kg/t4TtzqwiLissette Suh MD Work Phone: [facility]10-23-2025 10:51-0400 Body miblba13.75 kgLissette Suh MD Work Phone: [facility]10-23-2025 10:51-0400 Diastolic blood ebittsbd85 mm[Hg]Lissette Suh MD Work Phone: [phone]10-23-2025 10:51-0400 Heart rate69 /Eder Suh MD Work Phone: [facility]10-23-2025 10:51-0400 Systolic blood yglltede503 mm[Hg]Lissette Suh MD Work Phone: [facility]05-16-2025 08:17-0400 Blood Pressure LocationJENNIFER WILLIS [facility]05-16-2025 08:17-0400Body nnpijesukfw85.7 [degF]AUBRIE PEDRO [facility]05-16-2025 08:17-0400Diastolic blood nkmsmbjo61 mm[Hg]AUBRIE PEDRO [facility]05-16-2025 08:17-0400Heart rate68 /minJENNIFER WILLIS [facility]05-16-2025 08:17-0400Respiratory rate18 /minJENNIFER WILLIS [facility]05-16-2025 08:17-0400Systolic blood ngtdteqb786 mm[Hg]AUBRIE PEDRO [facility]04-16-2025 09:23-0400Body haaxrd669.26 cmAkron Children'S Hospital04-16-2025 09:23-0400Body mass index (BMI) [Ratio]17.9 kg/k5SwdtlbwdiAkron Children'S Hospital04-16-2025 09:23-0400Body .05 kgAkron Children'S Hospital04-16-2025 09:23-0400Diastolic blood kvfjoefd01 mm[Hg] [facility]04-16-2025 09:23-0400Heart rate62 /[facility]04-16-2025 09:23-0400Respiratory rate12 /[facility]04-16-2025 09:23-4675DdA5% (BldA) [Mass fraction]100 % [facility]04-16-2025 09:23-0400Systolic blood ixpqovwx510 mm[Hg][facility]11-15-2024 11:22-0500Blood Pressure LocationPatricboogie MACIAS [facility]11-15-2024 11:22-0500Body vmpwsyxuebp87.6 [degF]Jameson MACIAS [facility]11-15-2024 11:22-0500Diastolic blood mm[Hg]Jameson MACIAS [facility]11-15-2024 11:22-0500Heart rate67 /Juan MACIAS [facility]11-15-2024 11:22-0500Respiratory rate16 /Juan MACIAS [facility]11-15-2024 11:22-0500Systolic blood vaxwafxn781 mm[Hg]Jameson MACIAS [facility]10-04-2024 09:34-0400Blood Pressure LocationPafrancis MACIAS [facility]10-04-2024 09:34-0400Body qwbccrlijbh89.6 [degF]Jameson MACIAS [facility]10-04-2024 09:34-0400Diastolic blood ifxanzla00 mm[Hg]Jameson MACIAS [facility]10-04-2024 09:34-0400Heart rate63 /minPatrick MACIAS [facility]10-04-2024 09:34-0400Respiratory rate16 /minPatrick MACIAS [facility]10-04-2024 09:34-0400Systolic blood ywjkbmgz256 mm[Hg]Jameson [employer] [facility]04-01-2024 09:05-0400Blood Pressure LocationPatrick [employer] [facility]04-01-2024 09:05-0400Diastolic blood xpfryezw13 mm[Hg]Jameson MACIAS [facility]04-01-2024 09:05-0400Heart rate82 /minPatrick [employer] [facility]04-01-2024 09:05-0400Respiratory rate16 /minPatrick MACIAS [facility]04-01-2024 09:05-0400Systolic blood gidgyzqu438 mm[Hg]Jameson [employer] [facility]10-27-2023 09:35-0400Body .18 Valerie Ash Other [employer] Other 10-27-2023 09:35-0400Body mass index (BMI) [Ratio] 18.73 kg/q7QsdcviMercy Ash Other [employer] Other 10-27-2023 09:35-0400Body ahdekqfmxnq01 [degF][facility]cy Ash Other [place] [employer] Other 10-27-2023 09:35-0400Body wizsfo08.25 kgMercy Ash Other [employer] Other 10-27-2023 09:35-0400Diastolic blood umblgbvm48 mm[Hg] Mercy Ash Other [employer] Other 10-27-2023 09:35-0400Respiratory rate18 /minMercy Ash Other [employer] Other 10-27-2023 09:35-0212TsX2% (BldA) [Mass fraction]99 % Mercy Ash Other [employer] Other 10-27-2023 09:35-0400Systolic blood mm[Hg] Mercy Ash Other [employer] Other 03-06-2023 10:37-0500Blood Pressure LocationPatrick MACIAS [facility]03-06-2023 10:37-0500Diastolic blood zudqzzhb55 mm[Hg]Jameson MACIAS [facility]03-06-2023 10:37-0500Heart rate72 /minPafrancis MACIAS [facility]03-06-2023 10:37-0500Systolic blood iwvvdmec287 mm[Hg]Jameson MACIAS [facility]01-25-2023 10:45-0500Body umzubl865.18 cmPameljes Ash Other [employer] Other 01-25-2023 10:45-0500Body mass index (BMI) [Ratio] 19.58 kg/y1YrwjlyMercy Ash Other [employer] Other 01-25-2023 10:45-0500Body hkhaobblvsk73.2 [degF]Mercy Nilsa Other [employer] Other 01-25-2023 10:45-0500Body emfcfi38.7 kgMercy Ash Other [employer] Other 01-25-2023 10:45-0500Diastolic blood mrmrierm21 mm[Hg] Mercy Nilsa Other [employer] Other 01-25-2023 10:45-0500Respiratory rate18 /minMercy Ash Other [employer] Other 01-25-2023 10:45-0408QwS9% (BldA) [Mass fraction]97 % Mercy Nilsa Other [employer] Other 01-25-2023 10:45-0500Systolic blood mm[Hg] Mercy Ash Other [employer] Other 01-20-2023 10:00-0500Body apgkpw889.64 cmLissette Suh Other [employer] Other 01-20-2023 10:00-0500Body mass index (BMI) [Ratio] 19.53 kg/f3Oetfsc Angeli Other [place] [employer] Other 01-20-2023 10:00-0500Body pitdch36.89 kgLissette Suh Other [employer] Other 01-20-2023 10:00-0500Diastolic blood bnyaugfi00 mm[Hg] Lissette Angeli Other [employer] Other 01-20-2023 10:00-8477UeK5% (BldA) [Mass fraction]99 % Lissettefarhad Suh Other [employer] Other 01-20-2023 10:00-0500Systolic blood wmudbcrv091 mm[Hg] Lissette Suh Other [employer] Other 05-24-2022 06:44-0400Body sadzxz382.26 cmMD Lissette Angeli Work Phone: [facility]05-24-2022 06:44-0400 Body loaykf34.33 kgMD Lissette Suh Work Phone: [facility]05-02-2022 09:50-0400 Blood Pressure LocationPasouthern kentucky rehabilitation hospitalboogie MACIAS [facility] 05-02-2022 09:50-0400Diastolic blood dxnfaijl45 mm[Hg] Jameson MACIAS [facility] 05-02-2022 09:50-0400Heart rate64 /minJameson MACIAS [facility] 05-02-2022 09:50-0400Respiratory rate16 /minJameson MACIAS [facility] 05-02-2022 09:50-0400Systolic blood fbjgqwtu065 mm[Hg] Jameson MACIAS [facility] Encounters Encounter DateEncounter TypeCare ProviderFacilityStart: 42-56-9902coeyygngmo AUBRIE PERRYFacility:EU InglewoodevueStart: 49-98-5930ojozopccmuNDKOVSMZ WILLIS Facility:EU tart: 07-12-2025 End: 64-64-1712saolkcdvciUqufmm E Braun MD Work Phone: [facility] 07-12-2025 End: 04-07-0947Dguywdt encounter procedureLissette Suh MD-[facility] Work Phone: Start: 08-86-9057Rtf-patient / Non-visitMaria Victoria Vanegas MD-[facility] Work Phone: Start: 02-02-2025 End: 76-06-5845tjbocchnhqCBLLQDWV PERRYFacility:EU tart: 02-02-2025 End: 33-58-1402Fccjrkx encounter procedureJENNIFER E WILLIS [facility] start: 01-26-2025 End: 10-86-4083Rgl Drop offJameson MACIAS [facility] Start: 01-26-2025 End: 08-83-4385lgdsuabgqpUxiaddd R WATERSFacility:EU [place]glewoodueStart: 01-03-2025 End: 42-68-9204exueqnhqgmZdnifavte [facility] Work Phone: Start: 01-03-2025 End: 32-88-8499Uouncst encounter procedureM[facility] Work Phone: Start: 98-30-5011Kho-patient / Non-visitMission Family Health Center [facility]-[employer] Work Phone: Start: 08-04-2024 End: 53-71-9992essjykoxyeQujxaiq R WATERSFacility:EU [place]vueStart: 08-04-2024 End: 42-90-1554Qorxctg encounter procedureBetotricboogie Kay MACIAS [facility] start: 06-23-2024 End: 49-54-3801xsqgyffyzoFqfilnr R WATERSFacility:EU BellevueStart: 06-23-2024 End: 16-48-7449Fgzbtut encounter procedurePatricboogie Kay MACIAS [facility] start: 12-20-2023 End: 93-43-8295Spntjky encounter procedurePatricboogie Kay MACIAS [facility] start: 10-25-2023 End: 05-27-4094ibggjlofynGtnpto Braun Other [employer] Other Start: 79-51-5892Jyfdrewbs encounterMarcia AngeliProMedica Flower Hospitaltart: 10-22-2023 End: 19-14-4705odiowuhevuXihpyc Braun Other [facility] [employer] Other Start: 39-75-7836Vrkdfopax encounterMarcia AngeliProMedica Flower Hospitaltart: 10-21-2023(Televisit) TelevisitLissette Kym Ruggiero [facility] ClinicStart: 10-21-2023 End: 72-96-9126jsodilrvcdSpjofc Braun Other noIActive [employer] Other Start: 07-16-2023 End: 75-02-0208mtmgdpjiexZqchsa Dymond Other [facility] [employer] Other Start: 29-28-7546Rcricb outpatient visit 15 minutes [facility]fernandoPRECIOUSG [facility] ClydeStart: 02-23-2023 End: 65-83-5662qzytcettcmIoqfib Braun Other [facility] [employer] Other Start: 43-15-1263Jglkoloml encounterMagdalenajordon Kym [facility]tart: 11-23-2022 End: 63-19-3202Iqnpfel encounter procedurePatrick Rahul [employer] [facility] start: 10-14-2022 End: 83-72-4218cyxlyrlkfmPgtwql Dymond Other [facility] [employer] Other Start: 41-10-7056Ilngfu outpatient visit 15 minutes [facility] ClydeStart: 10-09-2022 End: 15-68-9815gqttlcmqafHhcsjr Braun Other noIActive [employer] Other Start: 83-53-0918Expueh outpatient visit 15 minutes [facility]issette SuhNIKOLAY [facility] 05-[facility]2022 End: 58-63-3261Ampipaa encounter procedurePatrick Rahul [employer] [facility] start: 04-14-2022 End: 53-31-1466Ctrycaa encounter procedurePatrick Rahul MACIAS [facility] Start: 02-10-2022 End: 18-25-8500Rfquodo encounter Gerson Suh Work Phone: [facility]: 01-19[facility]2022 End: 36-50-0579Oujgolz encounter procedurePatrick R LAKISHA [facility] start: 01-12-2022 End: 11-94-7119xrqgqjxibiDB JAMESON MACIASFacility:L3Gkfqw: 11-12-2021 End: 67-63-3003peleyycxrzKG MARCIA E BRAUNFacility:D6Zvihq: 05-28-2021 End: 94-86-3548perwnjpiscDKSam SUHFacility:H1 Procedures DateProcedureProcedure DetailPerforming ClinicianStart: 24-31-3893Jxvsneigxeb biopsy of prostate using ultrasound guidanceHaileboogie MACIAS Start: 65-79-0648Momcpfbohxo biopsy of prostate using ultrasound guidanceJameson MACIAS Start: 43-85-7003Tulwsmgwdhukmbl guided transrectal cryoablation of prostateBetofrancis MACIAS Start: 82-29-9991HU prostate wo/w conMD Lissette Suh Work Phone: Start: 74-46-0362ZQH screeningDR JAMESON LAKISHAComment on above:Performed By: #### PSAD #### [facility] [address] [place] [address] Dr. Edmond Ortiz: 42-34-0011OCN screeningDR JAMESON MACIASComment on above: Performed By: #### PSASC #### [facility] [address] [place] [address] Dr. Edmond Ortiz: 12-13-7125Gweuqkv of sutureMercy Ash Other Start: 94-48-0433Rlqkzpm examination of Keeley Ash Other Start: 42-20-7506Pfwicjsbl inguinal hernia repair Jameson MACIAS Start: 72-13-6268SkejrmcjitiBpmylkw WATERS Screening for malignant neoplasm of prostateMercy Ash Other Immunizations Immunization DateImmunizationNotesCare PwcvgvteYucpdhrg30-21-9728PRVJ-XmH-5 (COVID-19) mRNA BNT-162b2 vaxJameson MACIAS [facility] 05-166702-30-4661ZPKK-FlG-4 (COVID-19) mRNA BNT-162b2 vax Jameson MACIAS [facility] 04-851516-82-1962IKQE-NoB-9 (COVID-19) mRNA BNT-162b2 vax Jameson MACIAS [facility] 01428058-90-2640swczny vaccine, liveJameson MACIAS [facility]10-13-2015tetanus and diphtheria toxoids, adsorbed, preservative free, for adult use (5 Lf of tetanus toxoid and 2 Lf of diphtheria toxoid)[facility] Other [facility]11-03-2014tetanus and diphtheria toxoids, adsorbed, preservative free, for adult use (5 Lf of tetanus toxoid and 2 Lf of diphtheria toxoid)[facility] Other [facility] Payers DatePayer CategoryPayerPolicy [id number] [id number] [id number] [id number] [id number] 2.16.840.1.633900.3.57[id number] 2.16.840.1.772120.3.57[id number] 2.16.840.1.657510.3.57[id number] 2.16.840.1.714195.3.57[id number] 2.16.840.1.748214.3.57[id number] 2.16.840.1.586030.3.57[id number] 2.16.840.1.215024.3.57[id number] 2.16.840.1.818515.3.57[id number] 2.16.840.1.576651.3.57[id number] 2.16840.1.350348.3.579.2.727Self-paySelf [facility] [id number] of [place] [id number] Social History DateTypeDetailFacilityStart: 12-22-2021 End: 87-35-9078Eobcssm smoking statusSmoker (finding)[facility] sex Assigned At [facility] start: 17-58-8756Xtb Assigned At [facility]: 05-01-2022 End: 96-73-4965Qusirgo smoking statusHeavy tobacco smoker (finding)[facility] Tobacco smoking statusNeverExecutive [facility] of [facility]: 08-04-2024 End: 52-44-4813Uenvgmd smoking statusLight tobacco smoker (finding)[facility]: 18-87-1372Ywebszl smoking status NHISTobacco smoking consumption unknown (finding)[facility]: 76-46-7565BgqNdie (finding)[facility] Functional Status VejbHxxxpvrzkeXlkjqaMrhxjzcp06-43-0639Dfdnkiadsq StatusN/A[facility]11-15-2024Functional StatusN/A[facility]10-04-2024Functional StatusN/A [facility]04-01-2024Functional StatusN/A[facility]03-06-2023 Functional StatusN/A[facility] 34-43-6557Evwodqixbk StatusN/A[facility] Clinical Notes 05-28-2021 to 02-02-2025 Note Date & NoglYxowKvluzovo99-57-7457 Hospital Discharge instructions Patient Education 02/02/2025 08:53:18 Benign Prostatic Hyperplasia Benign Prostatic Hyperplasia Benign prostatic hyperplasia (BPH) is an enlarged prostate gland that is caused by the normal agingprocess. The prostate may get bigger as a man gets older. The condition is not caused by cancer. The prostate is a walnut-sized gland that is involved in the production of semen. It is located in front of the rectum and below the bladder. The bladder stores urine. The urethra carries stored urine ou t of the body. An enlarged prostate can press on the urethra. This can make it harder to pass urine. The buildup of urine in the bladder can cause infection. Back pressure and infection may progress to bladder damage and kidney (renal) failure. What are the causes? This condition is part of the normal aging process. However, not all men develop problems from thiscondition. If the prostate enlarges away from the [...] urethra. Follow these instructions at home: Take blnj-wec-htcwgcy and prescription medicines only as told by [...] provider. Document Revised: 03/25/2022 Document Reviewed: 03/25/2022 M[employer] Patient Education 2023 Reclip.It. Follow Up Care 08/04/2024 12:31:32 With:WILLIS RAYA, AUBRIE Camacho, URL Address: [address] [place] [address] [place] [address] When:Within 1 Year(s) [facility] 05-16-2025 NotePatient Education Urology Benign Prostatic Hyperplasia Benign prostatic hyperplasia (BPH) is an enlarged prostate gland that is caused by the normal agingprocess. The prostate may get bigger as a man gets older. The condition is not caused by cancer. The prostate is a walnut-sized gland that is involved in the production of semen. It is located in front of the rectum and below the bladder. The bladder stores urine. The urethra carries stored urine ou t of the body. An enlarged prostate can press on the urethra. This can make it harder to pass urine. The buildup of urine in the bladder can cause infection. Back pressure and infection may progress to bladder damage and kidney (renal) failure. What are the causes? This condition is part of the normal aging process. However, not all men develop problems from thiscondition. If the prostate enlarges away from the [...] this procedure, a tool is inserted through theopening at the tip of the penis (urethra). [...] procedure uses radio frequencies to destroy and removea small amount of prostate tissue. ? Interstitial laser coagulation (ILC). This procedure uses a laser to destroy and remove a small amount of prostate tissue. ? Transurethral electrovaporization (TUVP). This procedure uses electrodes to destroy and remove a small amount of prostate tissue. ? Prostatic urethral lift. This procedure inserts an implant to push the lobes of the prostate awayfrom the urethra. Follow these instructions at home: ??? Take wyyp-ual-heduccr and prescription medicines only as told by [...] symptoms do not get (more content not included)...[facility]11-15-2024 Hospital Discharge instructions Patient Education 08/04/2024 12:29:09 Benign Prostatic Hyperplasia Benign Prostatic Hyperplasia Benign prostatic hyperplasia (BPH) is an enlarged prostate gland that is caused by the normal agingprocess. The prostate may get bigger as a man gets older. The condition is not caused by cancer. The prostate is a walnut-sized gland that is involved in the production of semen. It is located in front of the rectum and below the bladder. The bladder stores urine. The urethra carries stored urine ou t of the body. An enlarged prostate can press on the urethra. This can make it harder to pass urine. The buildup of urine in the bladder can cause infection. Back pressure and infection may progress to bladder damage and kidney (renal) failure. What are the causes? This condition is part of the normal aging process. However, not all men develop problems from thiscondition. If the prostate enlarges away from the [...] urethra. Follow these instructions at home: Take aabl-mes-vnuxxwx and prescription medicines only as told by [...] provider. Document Revised: 03/25/2022 Document Reviewed: 03/25/2022 [employer] Patient Education 2023 Reclip.It. Follow Up Care 06/23/2024 10:55:47 With:LAKISHA HOUSTON, Jameson Kya, URL Address: [facility] [address], [place] [address]- When:Within 6 Month(s) Comments:w/PSA [facility] 11-15-2024 NotePatient Education Urology Benign Prostatic Hyperplasia Benign prostatic hyperplasia (BPH) is an enlarged prostate gland that is caused by the normal agingprocess. The prostate may get bigger as a man gets older. The condition is not caused by cancer. The prostate is a walnut-sized gland that is involved in the production of semen. It is located in front of the rectum and below the bladder. The bladder stores urine. The urethra carries stored urine ou t of the body. An enlarged prostate can press on the urethra. This can make it harder to pass urine. The buildup of urine in the bladder can cause infection. Back pressure and infection may progress to bladder damage and kidney (renal) failure. What are the causes? This condition is part of the normal aging process. However, not all men develop problems from thiscondition. If the prostate enlarges away from the [...] this procedure, a tool is inserted through theopening at the tip of the penis (urethra). [...] procedure uses radio frequencies to destroy and removea small amount of prostate tissue. ? Interstitial laser coagulation (ILC). This procedure uses a laser to destroy and remove a small amount of prostate tissue. ? Transurethral electrovaporization (TUVP). This procedure uses electrodes to destroy and remove a small amount of prostate tissue. ? Prostatic urethral lift. This procedure inserts an implant to push the lobes of the prostate awayfrom the urethra. Follow these instructions at home: ??? Take flkh-gun-iwphgcb and prescription medicines only as told by [...] symptoms do not get (more content not included)...[facility]10-04-2024 Hospital Discharge instructions Patient Education 06/23/2024 10:53:46 Prostatitis Prostatitis Prostatitis is swelling or inflammation of the prostate gland, also called the prostate. This glandis about 1.5 inches wide and 1 inch [...] quickly and results from an acute bacterial infectionin the prostate gland. It is usually associated [...] when the body's disease-fighting system attacks healthy tissuein the body by mistake. Psychological factors. These [...] Follow these instructions at home: Medicines Take ncul-yjj-ossmwst and prescription medicines only as told by your health care provider. If you were prescribed an antibiotic medicine, take it as told by your health care provider. Do notstop using the antibiotic even if you start to feel better. Managing pain and swelling Take sitz baths as directed by your health care provider. For a sitz bath, sit in warm water that is deep enough to cover your hips and buttocks. If directed, apply heat to the affected area as often as told by your health care provider. Use theheat source that your health care provider recommends, [...] important. Where to find more information National [place] of Diabetes and Digestive and Kidney Diseases: [...] depends on the type of prostatitis. Take iycm-aod-saefhqo and prescription medicines only as told by your health care provider. Get help right away of you have chills, feel light-headed, feel like you may faint, cannot urinate,or have blood or blood clots in your urine. This information is not intended to replace advice given to you by your health care provider. Make sure you discuss any questions you have with your health care provider. Document Revised: 07/22/2023 Document Reviewed: 07/22/2023 [employer] Patient Education 2023 Reclip.It. Follow Up Care 12/20/2023 09:59:27 With:LAKISHA HOUSTON, Jameson Kay, URL Address: [address] [place], [place] [address]- When: Unknown [facility] 10-04-2024 NotePatient Education Infectious Disease Prostatitis Prostatitis is swelling or inflammation of the prostate gland, also called the prostate. This glandis about 1.5 inches wide and 1 inch [...] tone in the area between the hip bones(pelvic area), around the prostate. This type is also known as a pelvic floor disorder. ? Chronic bacterial prostatitis. This type usually results from an acute bacterial infection in theprostate gland that keeps coming back or has [...] with a bladder infection, high fever, and chills.This is the least common type of prostatitis. [...] of your body that drains urine from thebladder (urethra). How is this treated? Treatment for [...] these instructions at home: Medicines ? Take quvd-skx-fhbystd and prescription medicines only as told by [...] a sitz bath, sit in warm water thatis deep enough to cover your hips and [...] Where to find more information ? National [place] of Diabetes and Digestive a (more content not included)... [facility]04-01-2024 Hospital Discharge instructions Patient Education 12/20/2023 09:44:22 Prostate Cancer Screening Prostate Cancer Screening Prostate cancer screening is testing that is done to check for the presence of prostate cancer in men. The prostate gland is a walnut-sized gland that is located below the bladder and in front of therectum in males. The function of the prostate is to add fluid to semen during ejaculation. Prostatecancer is one of the most common types of cancer in men. Who should have prostate cancer screening? Screening recommendations vary based on age and other risk factors, as well as between the professional organizations who make the recommendations. In general, screening is recommended if: You are age 50 to 70 and have an average risk for prostate cancer. You should talk with your healthcare provider about your need for screening and [...] diagnosed with prostate cancer. The risk is higherif your family member's cancer occurred at an early age or if you have multiple family members withprostate cancer at an early age. ?Being a [...] is a blood test called the prostate-specific antigen(PSA) test. PSA is a protein that is [...] treatment? Where to find more information The [place] [employer]: www.cancer.org [place] [employer]: www.auanet.org Contact a health care [...] the recommended screening test for prostate cancer, butit has associated risks. Discuss the risks and [...] provider. Document Revised: 03/02/2022 Document Reviewed: 03/02/2022 [employer]ogl[employer] Patient Education 2022 [employer] Inc. 12/20/2023 08:59:38 Steps to Quit Smoking [...] health care provider if you have any questionsor concerns. How do I get ready to [...] require a prescription. You can also purchase vrqf-ems-kqvlvzl medicines. Medicines may have nicotine in them [...] and encouragement. Call telephone quitlines, such as 6-622-ANJM-NOW, reach out to support groups, or work [...] provider. Document Revised: 08/28/2022 Document Reviewed: 08/28/2022 [employer] Patient Education 2022 Reclip.It. Follow Up Care 12/18/2022 12:44:00 With:LAKISHA HOUSTON, Jameson Kay, URL Address: [facility] [address] , [place] [address]- [phone] When: Unknown [facility] [place] 02-01-2024 Evaluation note* Encounter Date Diagnosis Assessment Notes Treatment Notes Treatment Clinical Notes Oct, Febrile illness, acute (ICD-10 - R50.9) Discussed labs and chest x-ray as indicated for workup of fevers and chills. Differential includes pneumonia urinary tract infection prostatitis or other infectious etiology. Patient states he will go tomorrow for labs and chest x- ray. Patient agrees to go to ER if symptoms worsen in the meantime. [employer] Other 10-27-2023 Evaluation note* Encounter Date Diagnosis Assessment Notes Treatment Notes Treatment Clinical Notes Jun, Left ear impacted cerumen (ICD-1 0 - H61.22) Drink plenty fluids, get plenty of rest. Use eardrops as prescribed. Take Tylenol or Motrin for aches pains or fevers. Follow-up with your family physician for any further concerns. Jun,Otitis externa in other diseases classified elsewhere, left ear (ICD-10 - H62.42) [employer] Other 03-06-2023 Hospital Discharge instructions Patient Education [...] discomfort near your rectum, especially while sitting. [place]-colored urine due to small amounts of blood in your urine. A burning feeling while urinating. Blood in your stool (feces) or bleeding from your rectum. Blood in your semen. Follow these instructions at home: Medicines Take onbg-vhh-vxztlyt and prescription medicines only as told by [...] 02/28/2018 Document Revised: 12/27/2019 Document Reviewed: 02/28/2018 Elsevier Patient Education 2020 Reclip.It. Follow Up Care 01/19/2022 10:17:27 With:LAKISHA HOUSTON, Jameson Kay, URL Address: [facility] [address] , [place] [address]- When: Unknown [facility] [place] 01-25-2023 Evaluation note* Encounter Date Diagnosis Assessment Notes Treatment Notes Treatment Clinical Notes Sep, Impacted cerumen, right ear (ICD -10 - H61.21) Cerumen impaction home care material was printed Use the Debrox eardrops twice a day for 5 days. Return to the urgent care on Wednesday to have your ear irrigated. [employer] Other 01-20-2023 Evaluation note* Encounter Date Diagnosis Assessment Notes Treatment Notes Treatment Clinical Notes Sep, Bilateral impacted cerumen (ICD- 10 - H61.23) Advised to use Debrox for 1 week and then return for ear lavage. His cerumen is very hard and immobile. [employer] Other 08-12-2022 Hospital Discharge instructions Patient Education [...] urethra. Follow these instructions at home: Take wktr-auz-ondmyep and prescription medicines only as told by [...] 09/06/2006 Document Revised: 08/01/2019 Document Reviewed: 10/11/2017 Mogl[employer] Patient Education 2019 Reclip.It. Follow Up Care 04/08/2022 15:13:56 With:LAKISHA HOUSTON, Jameson Kay, URL Address: [address] [place] [address] [place] [address] When: Unknown [facility] [place] 07-26-2022 Hospital Discharge instructions Patient Education 04/14/2022 [...] for your post-operative appointment in 1-2 weeks [phone] or [phone] Follow Up Care 04/08/2022 13:41:21 With:Jameson MACIAS Address: [facility] [address] [place] [address]- Business (1) When: Unknown Comments:Keep scheduled appointment [facility]05-02-2022 Hospital Discharge instructions Patient Education 01/19/2022 08:16:13 [...] Follow these instructions at home: Medicines Take yosn-nga-xtsxobo and prescription medicines only as told by [...] 09/03/2001 Document Revised: 08/19/2018 Document Reviewed: 09/22/2017 Moglue Patient Education 2020 Reclip.It. 01/19/2022 08:16:11 Benign Prostatic Hyperplasia Benign Prostatic [...] urethra. Follow these instructions at home: Take hzmw-zbk-anhgnmt and prescription medicines only as told by [...] 09/06/2006 Document Revised: 08/01/2019 Document Reviewed: 10/11/2017 Moglue Patient Education 2020 Reclip.It. Follow Up Care 12/22/2021 10:57:06 With:Jameson MACIAS MD, URL Address: [facility] [address], [place] [address]- When:07/22/2022 [facility] 09-08-2021 NotePROCEDURE: XR FOOT RT MIN 3 VIEWS COMPARISON: None. HISTORY: Pain in right foot FINDINGS: BONES:No fracture, acute abnormality, or significant arthropathy. SOFT TISSUES:Negative. No visible soft tissue swelling. EFFUSION:None visible. OTHER: Negative. IMPRESSION: No acute abnormality Electronically authenticated by: EUGENIA RANDOLPH Date: 2021-05-28 16:50[facility]ments Appointment Date:07/24/2022 11:15:00 AM Scheduled Provider:Jameson MACIAS MD Location:[facility] Appointment Type:URO Office Visit [facility] evaluation + Plan note Future Appointments Appointment Date:04/24/2022 10:30:00 AM Scheduled Provider:Jameson MACIAS MD [facility] Type:[facility] Office Visit Appointment Date:07/24/2022 11:15:00 AM Scheduled Provider:Jameson MACIAS MD [facility] App[facility] Type:URO Office Visit Diagnostic Tests Pending * Prostate Histology [facility]) [facility] Appointment Date:11/24/2022 04:00:00 PM Scheduled Provider: Location:[facility] Appointment Type:Urology CALL PAT Appointment Date:12/01/2022 08:30:00 AM Scheduled Provider: Location:[facility] Appointment Type:Urology FT Appointment Date:12/18/2022 11:00:00 AM Scheduled Provider:Jameson MACIAS MD [facility] Type:URO Office Visit [facility] evaluation + Plan note Future Appointments Appointment Date:06/23/2024 09:45:00 AM Scheduled Provider:Jameson MACIAS MD Location:[facility] Appointment Type:URO Office Visit Diagnostic Tests Pending * PSA Total 12/20/23 [facility] evaluation + Plan note Future Appointments Appointment Date:08/04/2024 10:45:00 AM Scheduled Provider:Jameson MACIAS MD Location:[facility] Appointment Type:URO Office Visit Diagnostic Tests Pending * PSA Total 07/04/24 [facility] evaluation + Plan note Future Appointments Appointment Date:02/02/2025 08:30:00 AM Scheduled Provider:Jameson MACIAS MD Location:[facility] Appointment Type:URO Office Visit Diagnostic Tests Pending * PSA Total 08/04/24 [facility] evalchcfbk + Plan note Future Appointments Appointment Date:02/02/2025 08:20:00 AM Scheduled Provider:AUBRIE PEDRO PA-C Location:[facility] Appointment Type:URO Office Visit [facility] Evaluation + Plan note Future Appointments Appointment Date:01/28/2026 08:45:00 AM Scheduled Provider: Location:[facility] Appointment Type:URO Nurse Visit Appointment Date:02/04/2026 08:20:00 AM Scheduled Provider:AUBRIE PEDRO PA-C [facility] Appoint[facility] Type:URO Office Visit Future Scheduled Tests Laboratory* PSA Total 02/02/25 [facility] Evaluation noteNo assessment information available [facility] Work Phone: Evaluation noteNo InformationNortUPMC [facility] [place] Other History general Narrative - Reported* Type Description Date Medical History Elevated PSA Medical HistoryDisc disease, degenerative, lumbar or lumbosacralMedical History Right foot painMedical HistoryLeft lumbar radiculopathyMedical HistoryBenign prostatic hyperplasia with lower urinary tract symptomsMedical HistoryErectile dysfunctionSurgical HistoryINGUINAL HERNIA REPAIR [id number] History COLONOSCOPYHospitalization Historysee above [facility] Other Hospital course Narrative No data available for this section [facility] Hospital Discharge instructions No data available for this section [facility] Progress note No data available for this section [facility] CenterReason for referral (narrative)No reason for referral information availableW[facility]umed[facility] Work Phone: Summary Purpose Family History Relationship Condition Age at Onset Recorded Date/T liz father Unknown Heart diseaseUnknown Advance Directives Advance Directive Response Recorded Date/ Time Advance Directives No February 06 2 1:35pm Chief Complaint and Reason for Visit Chief Complaint Elevated PSA Chief Complaint Admit Date Wellness January 03, 2025 9:2 0am Chief Complaint Admit Date Mole July 12, 2025 1 0:32am Additional Source Comments (unrecognized sect ion and content) No Status Records FoundNo Status Records FoundNo Status Records FoundNo Status Records Found INFORMATION SOURCE (unrecogn ized section and content) DATE CREATED AUTHOR 01/17/2022 [facility] DATE CREATED AUTHOR AUTHOR'S ORGANIZ ATION 02/18/2022 [facility] DATE CREATED AUTHOR AUTHOR'S ORGANIZ ATION 02/03/2025 [facility] Care Teams (unrecognized sec tion and content) Team Status: Inactive Member Role Status Dates Lissette Suh MD Primary Care Provider Active Jameson Macias [facility] [place] ProviderActive Team Status: Active Member Role Status Dates Lissette Suh MD Primary Care Provider Active Team Status: Active Member Role Status Dates Lissette Suh MD Primary Care Provider Active Start: November 20, 2024 Marlene Lincolnstaci ProviderActiveStart: November 20, 2024 Team Status: Inactive Member Role Status Dates Lissette Suh MD Primary Care Provide r, Attending Provider Active Start: January 03, 2025 End: January 03, 2025 Team Status: Active Member Role/Relationship Status Dates Lissette Suh MD Primary Care Provider Active Team Status: Active Member Role/Relationship Status Dates Lissette Suh MD Primary Care Provider Active Start: May 29, 2025 Maria Victoria Vanegas TIFFANIEdarlenestaci ProviderActiveStart: May 29, 2025 Team Status: Inactive Member Role/Relationship Status Dates Lissette Suh MD Primary Care Provider Active Start: July 12, 2025 End: July 12, 2025Piero Joyner ProviderActiveStart: July 12, 2025 End: July 12, 2025 Goals (unrecognized section and content) Goals may [...] BE BASED ON THE PRIMARY CLINICAL RECORDS. [employer] [facility]. provides no warranty or guarantee of the accuracy or completeness of information in this document.
[2025-08-24 09:44] LABS: Hematocrit 41.8 % (42.0-54.0); Hemoglobin 14.4 g/dL (14.0-18.0); Immature Granulocytes Abs Auto 0.01 10^3/uL (0.00-0.03); Immature Granulocytes Pct Auto 0.2 % (0.0-0.5); Lymphocytes Absolute Auto 1.1 10^3/uL (1.2-3.8); Mean Corpuscular HGB Conc 34.4 g/dL (29.9-35.2); Mean Corpuscular Hemoglobin 31.7 pg (25.9-34.0); Mean Corpuscular Volume 92.1 fL (80.0-94.0); Platelet Count 214 10^3/uL (150-450); Red Blood Count 4.54 10^6/uL (4.70-6.10); White Blood Count 6.1 10^3/uL (4.0-11.0)
[2025-08-24 10:23] LABS: Alanine Aminotransferase 20 U/L (16-63); Albumin Globulin Ratio 0.9; Albumin Level 3.6 g/dL (3.4-5.0); Alkaline Phosphatase 97 U/L (46-116); Anion Gap 12.0; Aspartate Amino Transferase 16 U/L (15-37); Blood Urea Nitrogen 19.0 mg/dL (7.0-18.0); Calcium 8.8 mg/dL (8.5-10.1); Carbon Dioxide 28.4 mmol/L (21.0-32.0); Chloride 102 mmol/L (98-107); Estimated GFR (African America >60 (>=60 mL/min/1.73m^2); Estimated GFR (Non-African Ame >60 (>=60 mL/min/1.73m^2); Globulin 3.8 g/dL; Glucose 91 mg/dL (74-106); Potassium 4.4 mmol/L (3.5-5.1); Sodium 138 mmol/L (136-145); Total Protein 7.4 g/dL (6.4-8.2)
[2025-08-24 10:39] LABS: Iron 112.0 ug/dL (65.0-175.0); Percent Iron Saturation 33.0 %; Total Iron Binding Capacity 339.0 ug/dL (250.0-450.0)
[2025-08-24 11:30] LABS: Ferritin 92.0 ng/mL (26.0-388.0)
== END 2025-08-24 09:09 | disposition home or self-care (01) ==
LOC: LAB 09:13
PROVIDERS: PCP Family Medicine; Visit Provider Internal Medicine Hematology & Oncology
DX: D64.9 Anemia, unspecified (principal); R91.1 Solitary pulmonary nodule; Z13.71 Encounter for nonprocreative screening for genetic disease carrier status; R79.0 Abnormal level of blood mineral; F17.210 Nicotine dependence, cigarettes, uncomplicated
CPT/HCPCS: 36415; 80053; 82728; 83540; 83550; 85025

== ENCOUNTER 2025-08-28 08:45 | Outpatient (RCR) | payer OTHER, SELFPAY | END 2025-09-19 23:59 | disposition home or self-care (01) | LOC: HEMC 08:45 | PROVIDERS: PCP Family Medicine; Visit Provider Internal Medicine Hematology & Oncology | DX: D64.9 Anemia, unspecified (principal); R91.1 Solitary pulmonary nodule; F17.210 Nicotine dependence, cigarettes, uncomplicated; R97.20 Elevated prostate specific antigen [PSA] | CPT/HCPCS: G0463 ==